=== PATIENT | female | born 1955 | race Caucasian/White ===

== ENCOUNTER 2023-10-21 09:42 | Emergency (ER) | payer BC, SELFPAY ==
[2023-10-21 09:45] VITALS: BP 126/79
[2023-10-21] MEDS: DILAUDID 0.5 MG IV (10:56)
[2023-10-21 11:04] VITALS: BP 125/66
[2023-10-21 11:07] LABS: % Basophils 0.9 % (0-2); % Eosinophils 1.5 % (0-6); % Immature Granulocytes 0.3 % (0-0.5); % Lymphocytes 30.8 % (20.5-51.1); % Monocytes 10.8 % (1.7-9.3); % Neutrophils 55.7 % (42.2-75.2); Absolute Basophils 0.1 10^3/uL (0-0.2); Absolute Eosinophils 0.1 10^3/uL (0-0.7); Absolute Monocytes 0.7 10^3/uL (0.1-0.6); Absolute Neutrophils 3.6 10^3/uL (1.4-6.5); Hematocrit 42.1 % (37.0-47.0); Hemoglobin 14.9 g/dL (12.0-16.0); Mean Corp Hgb Conc. 35.4 g/dL (33.0-37.0); Mean Corpuscular Hgb 29.6 pg (27.0-31.0); Mean Corpuscular Volume 83.5 fL (81.0-99.0); Mean Platelet Volume 9.6 fL (7.4-10.4); Nucleated Red Blood Cells % 0 %; Platelet Count 225 10^3/uL (130-400); Red Blood Cell Count 5.04 10^6/uL (4.20-5.40); Red Cell Dist. Width 12.7 % (11.5-14.5); White Blood Cell Count 6.5 10^3/uL (4.8-10.8)
[2023-10-21 11:14] LABS: Urine Albumin Trace (Neg - Trace); Urine Bilirubin 1+ (Negative); Urine Character Clear (Clear); Urine Color Yellow; Urine Glucose Negative (Negative); Urine Ketone 2+ (Negative); Urine Leukocyte Trace (Negative); Urine Nitrite Negative (Negative); Urine Occult Blood Negative (Negative); Urine Specific Gravity 1.015 (<1.030); Urine Urobilinogen 3+ (Neg - 1+); Urine pH 6.5 (5.0-9.0)
[2023-10-21 11:15] LABS: ALT (SGPT) 34 U/L (0-35); AST (SGOT) 32 U/L (14-36); Albumin 3.9 g/dl (3.5-5.0); Alkaline Phosphatase 119 U/L (38-126); Blood Urea Nitrogen 15 mg/dl (7-17); Calcium 9.2 mg/dl (8.4-10.2); Carbon Dioxide 24 mmol/L (22-30); Chloride 105 mmol/L (98-107); Glucose 89 mg/dl (70-99); Potassium 3.6 mmol/L (3.5-5.1); Sodium 136 mmol/L (135-145); Total Protein 6.7 g/dl (6.3-8.2); eGFR > 60.00
[2023-10-21 11:31] LABS: Urine Red Blood Cell 0-2 /HPF (0-2); Urine Squamous Cell 0-2 /LPF (Few)
[2023-10-21 11:32] LABS: Urine Bacteria Few (Negative)
[2023-10-21 12:15] VITALS: BP 137/77
[2023-10-21] MEDS: DILAUDID 1 MG IV (12:22)
[2023-10-21 13:00] VITALS: BP 121/71
[2023-10-21 14:00] VITALS: BP 123/77
--- NOTE | 2023-10-21 14:00 | ED.GENMED ---
History of Present Illness
General
Chief Complaint: Back Pain
Source: patient and other (friend)
Time Seen by Provider: 10/21/23 10:28
Travel History
Have you had any contact with someone who has COVID-19?: No
Do you have any symptoms of coronavirus? Fever > 100 degrees, chills, cough, shortness of breath, sore throat, loss of taste or smell, muscle aches, or headache?: No
History of Present Illness
History of Present Illness:
67-year-old female with long history of chronic pain including severe low back pain. She follows with pain management. She recently had her hydromorphone increased to 8 mg. Patient states her back pain has been worse over the last several weeks
and an MRI showed a sacral fracture. Patient states that over the last few days is felt confused. She initially was taken 8 mg but then stopped. She did take a dose of hydromorphone last night but is not sure what dose. Patient denies fevers or
abdominal pain. Her low back pain has been chronic.
Past History
Past History
ED Past Medical History: Asthma, HTN, Hypothyroidism, Psychiatric (Anxiety, Depression, PTSD, ) and Other (Spinal fracture,chronic back pain, kidney stones. PNA, C-dif, UTI, Renal calculus, Ovarian cyst)
ED Past Surgical History: Appendectomy, Orthopedic (Neck fusion, Right shoulder surgery, Sven knee replacements, ), Urological (renal stent, ) and Other (Ovarian cyst)
Patient has exhibited threatening behavior?: No
PSI?: No
Social History
Tobacco: Non-smoker
Alcohol: None
Drug: None
Personal:
Living: alone
Employment: Employed
Family History
Family History: Other (Noncontributory)
Phy Exam
Physical Exam
Physical Exam:
CONSTITUTIONAL Patient alert and oriented to person, place and time. Well-appearing. Vital signs reviewed.
HEAD atraumatic, normocephalic.
EYES eyelids normal to inspection, Extraocular muscles intact, Conjunctiva normal, Sclera normal.
NECK normal range of motion, Trachea midline, no jugular venous distention.
RESPIRATORY CHEST No respiratory distress noted, Chest expansion equal, Bilateral breath sounds clear.
CARDIOVASCULAR regular rate and rhythm, Heart sounds normal.
BACK normal inspection, no obvious deformities, is able to ambulate in the department
UPPER EXTREMITY range of motion normal, Motor strength normal, no cyanosis, no edema.
LOWER EXTREMITY range of motion normal, Motor strength normal, no cyanosis, no edema.
NEURO Speech normal, No focal motor deficits, Gilbert coma scale 15, Memory normal, Cranial Nerves intact to screening exam.
SKIN skin warm, dry, and normal in color.
PSYCHIATRIC patient oriented to person place and time, Normal affect.
Course
Orders/Labs/Results
Orders:
Orders
10/21/23 10:47
CT Lumbar Spine W/o Iv Contras Urgent
Comment:
Reason For Exam: fall
10/21/23 10:48
CT Head W/o Iv Contrast Urgent
Comment:
Reason For Exam: fall, frequent falls
HYDROmorphone [Dilaudid] 0.5 mg IV NOW STA
10/21/23 10:50
HYDROmorphone [Dilaudid] 0.5 mg .ROUTE .STK-MED ONE
10/21/23 10:54
Complete Blood Count/With Diff Urgent
Comprehensive Metabolic Panel Urgent
Urinalysis Reflex To Culture Urgent
Date Specimen was Collected: 10/21/23
Time Specimen was Collected: 10:53
Urine Microscopic Reflex Cult Urgent
10/21/23 11:14
Electrocardiogram (*1) Stat
Reason for Study: Other
Other Reason for Exam: chest pain
EKG- Treatment ONCE
10/21/23 12:16
HYDROmorphone [Dilaudid] 1 mg IV NOW STA
10/21/23 12:17
HYDROmorphone [Dilaudid] 1 mg .ROUTE .STK-MED ONE
Abnormal Lab Results
10/21/23
10:54
Absolute Monos (auto) 0.7 H 10^3/uL
(0.1-0.6)
Monocytes % 10.8 H %
(1.7-9.3)
Urine Ketones 2+ A
(Negative)
Urine Bilirubin 1+ A
(Negative)
Urine Urobilinogen 3+ A
(Neg - 1+)
Leukocyte Esterase Rfl Trace A
(Negative)
Urine Bacteria (Reflex) Few A
(Negative)
10/21/23 10:54
10/21/23 10:54
Vital Signs
Initial and Last Documented VS:
Initial Vital Signs
Temp BP
97.8 F 126/79
10/21/23 09:45 10/21/23 09:45
Last Documented Vital Signs
Temp Pulse Resp BP Pulse Ox
98.6 F 77 24 123/77 99
10/21/23 11:02 10/21/23 14:00 10/21/23 14:00 10/21/23 14:00 10/21/23 11:15
MDM/Problems Addressed
MDM/Problems Addressed:
Chronic back pain, chronic narcotic use
*Radiology
Radiology exam reviewed: radiology read reviewed
*Pulse Oximetry
Patient hypoxic: no
*Critical Care Note
Total Time (30-74mins, 75-104mins- exclusive of procedures): Not Applicable
Data Reviewed
Source: patient and other (Friend)
Further Testing Considered But Not Given:
Considered MRI but no clinical concern for cauda equina syndrome or other spinal cord pathology.
Patient Management
Discussion with other providers: [employer] (Case discussed with Dr. Valadez)
Escalation/DeEscalation of care consider admission/obs:
Suspect her slight alteration of mentation was related to narcotic use as her dose was doubled and then she stopped it. Her ED workup was grossly unremarkable. Case was discussed with the paint preparer who knows her well. He
recommends add Toradol. He will follow as outpatient. Patient is stable and has a nonfocal exam. She is ambulatory on reassessment
ED Attending Note
-
Portions of this chart may have been created with voice recognition software.� Occasional wrong word or��sound alike� substitutions may have occurred due to the inherent limitations of voice recognition software.
Discharge Plan
Departure
Patient Disposition: Home (Routine Discharge)
Date of Disposition: 10/21/23
Time of Disposition: 15:18
Patient with high blood pressure during this ER visit?: No
Discharge Problem:
Low back pain
Instructions: Low Back Pain (DC)
Prescriptions:
New
ketorolac 10 mg tablet
10 mg PO Q8H PRN (Reason: Pain) Qty: 20 0RF
No Action
alendronate 70 MG tablet
70 mg PO TU
amlodipine 2.5 MG tablet
2.5 mg PO DAILY
cholecalciferol (vitamin D3) 1,000 UNITS tablet
2,000 units PO DAILY
hydromorphone 4 MG tablet
4 mg PO Q8H
levothyroxine [Levoxyl] 125 MCG tablet
112 mcg PO DAILY
omega 6-buq-mle-fish oil [Fish Oil] 1,000 MG capsule
2,000 mg PO DAILY
loratadine 10 MG tablet
10 mg PO DAILY
docusate sodium 100 MG capsule
250 mg PO HS
clonazepam [Klonopin] 0.5 mg Tablet
0.5 mg PO HS
escitalopram oxalate [Lexapro] 5 mg Tablet
5 mg PO DAILY
melatonin 10 mg Tablet
20 mg PO HS
lisinopril-hydrochlorothiazide 10-12.5 mg Tablet
1 tab PO DAILY
escitalopram oxalate [Lexapro] 5 mg Tablet
5 mg PO DAILY
coQ10 (ubiquinol) 200 mg Capsule
200 mg PO HS
ICaps AREDS2 250 mg-200 unit -12.5 mg-1 mg Capsule
PO DAILY
Prevagen
1 tab PO HS
diazepam [Valium] 2 mg tablet
2 mg PO TID PRN (Reason: muscle spasm) Qty: 10 0RF
oxycodone 5 mg tablet
5 mg PO TID PRN (Reason: Pain) Qty: 9 0RF
Referrals:
Dc Evans MD [Family Provider] -
Activity Restrictions/Additional Instructions:
Please stick to 4 mg of hydromorphone as advised by Dr. Valadez. Please see your doctor in the next 3 to 5 days for follow-up and reevaluation. Return ED for fevers, change in mentation, weakness of any kind, bladder or bowel incontinence or any
other concerns.
Interventions
Interventions:
*Risk Screen - Suicide Last Done: 10/21/23 10:52
*General Assessment Last Done: 10/21/23 11:32
*Neglect/Abuse Screening Last Done: 10/21/23 10:52
ED- Fall Risk Assessment Last Done: 10/21/23 11:05
*ED COVID-19 Vaccine History Last Done: 10/21/23 09:45
ED-Musculoskeletal Assessment Last Done: 10/21/23 10:47
[2023-10-21 15:00] VITALS: BP 131/72
== END 2023-10-21 15:40 | disposition home or self-care (01) ==
LOC: EMR 09:42
PROVIDERS: EMERGENCY PHYSICIAN Emergency Medicine; FAMILY PHYSICIAN Family Medicine
DX: M54.50 Low back pain, unspecified (principal); G89.29 Other chronic pain; Z79.891 Long term (current) use of opiate analgesic
CPT/HCPCS: 99285; 96374; 96376; 70450; 72131; 80053; 81003; 81015; 85025; 93005

== ENCOUNTER → 2024-03-10 08:31 | Outpatient (REF) | payer MEDICARE, SELFPAY | LOC: RAD 08:31 | PROVIDERS: ATTENDING PHYSICIAN Internal Medicine Gastroenterology; FAMILY PHYSICIAN Family Medicine | DX: R19.4 Change in bowel habit (principal) | CPT/HCPCS: 74018 ==

== ENCOUNTER → 2024-03-12 06:42 | Day surgery (SDC) | payer BC, SELFPAY | LOC: GI 06:42 | PROVIDERS: ATTENDING PHYSICIAN Internal Medicine Gastroenterology | DX: Z12.11 Encounter for screening for malignant neoplasm of colon (principal); Z86.010 Personal history of colon polyps; K64.8 Other hemorrhoids; K57.30 Diverticulosis of large intestine without perforation or abscess without bleeding; D12.3 Benign neoplasm of transverse colon; D12.4 Benign neoplasm of descending colon | CPT/HCPCS: 45385; 45380; 88305 ==

== ENCOUNTER → 2024-04-23 07:35 | Outpatient (REF) | payer BC, SELFPAY ==
[2024-04-23 10:13] LABS: Blood Urea Nitrogen 24 mg/dl (7-17); Calcium 9.8 mg/dl (8.4-10.2); Carbon Dioxide 26 mmol/L (22-30); Chloride 102 mmol/L (98-107); Glucose 92 mg/dl (70-99); Potassium 4.2 mmol/L (3.5-5.1); Sodium 140 mmol/L (135-145); eGFR > 60.00
[2024-04-23 11:45] LABS: Erythrocyte Sed Rate 8 mm/hour (0-20)
[2024-04-23 11:54] LABS: C-Reactive Protein < 5.00 mg/L (0.0-10.00)
[2024-04-23 11:59] LABS: Free T4 1.13 ng/dl (0.78-2.19)
[2024-04-23 12:13] LABS: TSH 4.52 uIU/ml (0.47-4.68)
[2024-04-23 14:45] LABS: Lyme Antibody Screen, EIA Negative (Negative)
[2024-04-25 01:19] LABS: ANA, IgG Reflex to HEp-2 None Detected (None Detected)
== END ==
LOC: RAD 07:35
PROVIDERS: ATTENDING PHYSICIAN Internal Medicine Gastroenterology; FAMILY PHYSICIAN Physician Assistant
DX: R50.9 Fever, unspecified (principal); M25.512 Pain in left shoulder; G89.29 Other chronic pain; M25.511 Pain in right shoulder; E03.9 Hypothyroidism, unspecified; R79.89 Other specified abnormal findings of blood chemistry
CPT/HCPCS: 36415; 71046; 73030; 80048; 84439; 84443; 85652; 86038; 86140; 86618

== ENCOUNTER 2024-07-24 17:48 | Inpatient (IN) | payer BC, MEDICARE, SELFPAY ==
[2024-07-24] VITALS (8 sets, daily range): BP systolic 127–161; BP diastolic 71–92; BMI 27.2
--- NOTE | 2024-07-24 11:11 | ED.GENMED ---
ED Provider Triage
<Krys Llanos PA-C - Last Filed: 07/26/24 07:05>
-
Patient seen by provider in Triage?: Seen in Triage
68 y/o F with history of hypothyroidism, hypertension, chronic pain on opiates presents with her friend who was meeting her at the house for lunch and when she got there the patient was disoriented, hallucinating, had stool diarrhea all over the
bathroom. She is not usually disoriented like this. The patient's friend talked to her about 3 days ago and she sounded normal on the phone. Patient feels her confused herself. She denies any drugs or alcohol. She does not think she has been
eating but cannot recall. She feels weak. She denies any headache or head injury.
She is oriented to person and place and time but cannot answer some simple questions, she paused several times before answering, she is hallucinating, touching things on the floor and picking at her arm
A medical screening examination has been initiated by a qualified medical provider. Based on the assessment performed at this time, it has been determined that an emergent medical condition may exist and the patient has been informed that further
medical evaluation and possible additional diagnostic testing may be needed.
HPI: This is a medical evaluation conducted in person to initiate diagnostic evaluation and provide initial therapeutics. Please see further documentation by the treating clinician.
GENERAL: Alert , in no apparent distress
Head: No signs of trauma
ENT: No visible abnormalities
LUNGS: No acute respiratory distress
NEUROLOGICAL: Alert and oriented, confused, hallucinating, moves all extremities, no cranial nerve defects, no strength defects
SKIN: Skin intact. No visible changes.
MUSCULOSKELETAL: Moving extremities normally
PSYCH: Normal and appropriate interaction. Anxious
This is a patient with an unknown time of onset of a change in mental status. It sounds like she has been having some diarrhea, she could have some electrolyte disturbance. There is no signs of trauma. We do not have a last known well time. She
will be not a TNKase candidate and thus a stroke alert was not called. Her neuroexam is nonfocal
Will order screening labs and head CT
History of Present Illness
<Krys Llanos PA-C - Last Filed: 07/26/24 07:05>
General
Chief Complaint: Change in Mental Status
Time Seen by Provider: 07/24/24 11:45
<LAURENCE Epstein - Last Filed: 07/24/24 16:36>
General
Source: patient
Exam Limitations: altered mental status
Nursing documentation reviewed up to this point in time: agreed with
History of Present Illness
History of Present Illness:
Patient is a 68-year-old female brought by friend for confusion. Friend went to visit patient and reports patient was found to be confused. There was stool on the rug.
Patient presents awake alert she is able to tell me her name and is aware that she is in the hospital but not able to tell me why she is here. She denies any chest pain. Second friend also here with patient reports patient is on chronic opiates
and is followed pain management and typically takes them on a routine schedule.
Patient complains of chronic right shoulder pain. She does mention bruising to her arms vague abdominal pain. She is a poor historian. She does mention that she has had diarrhea recently.
Patient denies any chest pain she denies any neck pain recent cough URI symptoms. She denies any fevers at home.
Past History
<Krys Llanos PA-C - Last Filed: 07/26/24 07:05>
Past History
ED Past Medical History: Asthma, HTN, Hypothyroidism, Psychiatric (Anxiety, Depression, PTSD, ) and Other (Spinal fracture,chronic back pain, kidney stones. PNA, C-dif, UTI, Renal calculus, Ovarian cyst)
ED Past Surgical History: Appendectomy, Orthopedic (Neck fusion, Right shoulder surgery, Sven knee replacements, ), Urological (renal stent, ) and Other (Ovarian cyst)
Patient has exhibited threatening behavior?: No
PSI?: No
Social History
Tobacco: Non-smoker
Alcohol: None
Drug: None
Personal:
Living: alone
Employment: Employed
Family History
Family History: Other (Noncontributory)
Review of Systems
<LAURENCE Epstein - Last Filed: 07/24/24 16:36>
Review of Systems
Allergies reviewed?: Yes
Other source history: family
All Other Systems: ROS reviewed and negative except as documented in HPI and ROS
EENT: Reports no symptoms
Respiratory: Reports no symptoms
Cardiac: Reports no symptoms
ABD/GI: Reports no symptoms
Musculoskeletal: Denies neck pain or back pain
Skin: Reports no symptoms
Phy Exam
<LAURENCE Epstein - Last Filed: 07/24/24 16:36>
General Physical Exam
General Presentation: no apparent distress
General age: appears stated age
General Skin: warm and dry
General Habitus: elderly
General Mental: other (Mildly confused but able to answer questions)
General Hydration: dry mucous membranes
ENT Exam
ENT Exam: EOMI and neck supple
Cardiovascular Exam
Cardiovascular Exam: regular rate/rhythm, no murmur and normal peripheral pulses
Pulmonary Exam
Pulmonary Exam: lungs clear and no respiratory distress
Neurological Exam
Neurological Exam: alert, no motor deficits, no sensory deficits and other (No focal deficits)
Musculoskeletal Exam
Musculoskeletal Exam: full ROM and other (Scattered ecchymosis to arms full range of motion no bony tenderness)
Skin Exam
Skin Exam: normal color and warm/dry
Psychiatric Exam
Psychiatric Exam: normal mood/affect
Course
<Krys Llanos PA-C - Last Filed: 07/26/24 07:05>
Orders/Labs/Results
Orders:
Orders
07/24/24 11:15
Bedside Glucose- Treatment ONCE
07/24/24 11:16
Electrocardiogram (*1) Stat
Reason for Study: Other
Other Reason for Exam: neuro symptoms
CT Head W/o Iv Contrast Urgent
Comment:
Reason For Exam: ams
EKG- Treatment ONCE
07/24/24 11:25
Acetaminophen Urgent
Alcohol Urgent
Complete Blood Count/With Diff Urgent
Comprehensive Metabolic Panel Urgent
Creatine Phosphokinase Urgent
Comment: ADD ON
Lipase Urgent
Comment: ADD ON
PTT Urgent
Prothrombin Time Urgent
Salicylate Urgent
TSH Reflex To Free T4 Urgent
Troponin I Urgent
07/24/24 12:03
0.9% Sodium Chloride 1000 ml [Nss] 1,000 ml IV BOLUS
0.9% Sodium Chloride 1000 ml [Nss] 1,000 ml IV BOLUS
07/24/24 12:04
Rectal Temp- Treatment ONCE
Straight cath- Treatment ONCE
07/24/24 12:43
Fentanyl, Urine Urgent
Lactic Acid Q4H
Comment: CANCEL 2nd LACTIC ACID IF 1st LACTIC ACID IS LESS THAN 2
Urinalysis Reflex To Culture Urgent
Date Specimen was Collected: 07/24/24
Time Specimen was Collected: 12:11
Urine Drug Abuse Screen Urgent
Date Specimen was Collected: 07/24/24
Time Specimen was Collected: 12:11
Urine Microscopic Reflex Cult Urgent
Blood Culture Q30M
TIFFANY Source: Blood/Venous
Specimen Description:
Urine Culture Urgent
TIFFANY Source: U
Specimen Description:
Date Specimen was Collected: 07/24/24
Time Specimen was Collected: 12:11
07/24/24 12:46
COVID-19 Antigen Urgent
Source: Nasal Swab
Blood Culture Q30M
TIFFANY Source: Blood/Venous
Specimen Description:
Influenza A+B Rapid Molecular Urgent
TIFFANY Source: Nasal Swab
Specimen Description:
07/24/24 13:57
CT Abd/pelvis W Iv Cont Urgent
Comment:
Reason For Exam: change in ms elevated wbc low gr temp
Chest [CR Chest - 2 Views ] Urgent
Comment:
Reason For Exam: low gr temp confusion
07/24/24 13:58
Add On- LAB Urgent
Tests Added?: Aspirin, alcohol, acetaminophen
Add On- LAB Urgent
Tests Added?: uds
07/24/24 14:43
Add On- LAB Urgent
Tests Added?: ck, tsh with reflex to t4
07/24/24 14:51
LevoFLOXacin 500 MG/100 ML [Levaquin] 500 mg in 100 ml IV NOW
07/24/24 Dinner
Clear Liquid
At Your Request: Full Participation
07/24/24 15:09
0.9% Sodium Chloride 1000 ml [Nss] 1,000 ml IV BOLUS
0.9% Sodium Chloride 250 ml [Nss] 250 ml IV BOLUS
07/24/24 15:24
Vancomycin [Vancocin] 2,000 mg 0.9% Sodium Chloride 500 ml [Nss] 500 ml IV NOW
07/24/24 16:24
Add On- LAB Routine
Tests Added?: lipase
07/24/24 16:50
Admit/Transfer Patient As Directed
Co-Sign Provider:
Level of Care: Inpatient admission
Assign to:: Telemetry
Physician / Group: Reyes
Diagnosis: Change in MS
Reason for Telemetry: Other
Other Reason for Telemetry: Change in MS
Date to Stop Telemetry: 07/26/24
Time to Stop Telemetry: 11:00
Reason for Hospitalization: see progress note
Expected length of stay greater than two midnights?: Yes
ELOS- Estimated Length of Stay in days: 3
I certify the patient meets the requirements for IP care: Yes
PRN Pain Medication Management As Directed
May give lesser potent ordered pain med per pt: Yes
preference::
Protocol:: Medication orders for pain may be administered in a
manner that supports deferring to patient preference
when the pt is:
- Requesting an ordered lesser potent pain medication.
Least to most potent pain medications are defined
as: acetaminophen < NSAID < tramadol < opioids
(morphine, oxycodone, hydromorphone).
- Requesting a lesser dose of the same medication IF
ORDERED.
- Requesting a less intrusive route of administration
if both routes are prescribed by the provider (PO <
IV).
07/24/24 16:59
Code Status As Directed
Resuscitation Status: Full Code
07/24/24 17:07
Lactic Acid Q4H
Comment: CANCEL 2nd LACTIC ACID IF 1st LACTIC ACID IS LESS THAN 2
07/24/24 18:00
Lactic Acid Urgent
07/24/24 18:27
Oxycodone [Roxicodone] 10 mg PO Q6HPRN PRN
07/24/24 19:43
0.9% Sodium Chloride 1000 ml [Nss] 1,000 ml IV 80 mls/hr
Acetaminophen [Tylenol] 650 mg PO Q4HPRN PRN
Dicyclomine [Bentyl] 10 mg PO QIDPRN PRN
Enoxaparin Sodium [Lovenox] 40 mg SC QPM
07/24/24 19:43
CARDIOLOGY CONSULT Routine
Consulting Provider: Mark Lees
Was physician already notified: Yes
Reason for consult: Abnormal Troponins
Activity As Directed
Activity Level: As Tolerated
I&O [Intake/ Output] As Directed
Frequency: q12h
Ot Eval And Treat Routine
Pt Eval And Treat Routine
Activity Level: As Tolerated
DX Deep Vein Thrombosis Video Routine
07/24/24 20:00
Baclofen [Lioresal] 10 mg PO BID
MetroNIDAZOLE 500 MG/100 ML [Flagyl 500 mg] 100 ml IV Q8H
07/24/24 20:19
Troponin I Q8H
Venous Blood Gas Routine
%Oxygen/Room Air: ROOM AIR
07/24/24 22:00
HydrOXYZINE [Atarax] 50 mg PO HS
07/25/24 03:45
Troponin I Q8H
07/25/24 06:00
Levothyroxine [Synthroid] 100 mcg PO DAILY @ 0600
07/25/24 08:00
Desvenlafaxine Succinate [Pristiq] 50 mg PO DAILY
Escitalopram Oxalate [Lexapro] 20 mg PO DAILY
HydrOXYZINE [Atarax] 25 mg PO DAILY
Hydrochlorothiazide [Oretic] 12.5 mg PO DAILY
Loratadine [Claritin] 10 mg PO DAILY
Pantoprazole [Protonix] 40 mg PO DAILY
07/25/24 08:22
CBC/No Diff [Complete Blood Count/No Diff] IN AM
CMP [Comprehensive Metabolic Panel] IN AM
CPK [Creatine Phosphokinase] IN AM
07/25/24 12:27
Troponin I Q8H
07/25/24 18:00
LevoFLOXacin 500 MG/100 ML [Levaquin] 500 mg in 100 ml IV Q24H
07/26/24 11:00
DC Protocol for Telemetry ONCE
Abnormal Lab Results
07/24/24 07/24/24 07/24/24
11:17 11:25 12:43
WBC 15.1 H 10^3/uL
(4.8-10.8)
RBC 5.53 H 10^6/uL
(4.20-5.40)
MCV 80.8 L fL
(81.0-99.0)
Abs Immat Gran (auto) 0.1 H 10^3/uL
(0-0.05)
Absolute Neuts (auto) 10.3 H 10^3/uL
(1.4-6.5)
Absolute Monos (auto) 1.8 H 10^3/uL
(0.1-0.6)
Lymphocytes % 19.8 L %
(20.5-51.1)
Monocytes % 11.7 H %
(1.7-9.3)
Chloride 96 L mmol/L
(98-107)
BUN 29 H mg/dl
(7-17)
Glucose 112 H mg/dl
(70-99)
Lactic Acid 2.4 H mmol/L
(0.7-2.0)
Total Bilirubin 1.4 H mg/dl
(0.2-1.3)
AST 67 H U/L
(14-36)
Creatine Kinase 882 H U/L
(30-135)
Troponin I 0.112 H* ng/ml
Urine Ketones 1+ A
(Negative)
Ur Occult Blood Reflex 2+ A
(Negative)
Urine Bilirubin 1+ A
(Negative)
Leukocyte Esterase Rfl Trace A
(Negative)
Urine RBC 7-10 A /HPF
(0-2)
Urine Bacteria (Reflex) Moderate A
(Negative)
Urine Glucose Trace A
(Negative)
Urine Albumin (Reflex) 1+ A
(Neg - Trace)
Salicylates < 1.0 L mg/dl
(2.0-20.0)
Ur Buprenorphine Positive H
(Negative)
Acetaminophen < 10 L ug/ml
(10-30)
U Benzodiazepines Scrn Positive H
(Negative)
POC Glucose 105 H mg/dl
(70-99)
11/26/24 11:25
07/24/24 11:25
Vital Signs
Initial and Last Documented VS:
Initial Vital Signs
Temp Pulse Resp Pulse Ox
36.7 C 103 16 97
07/24/24 11:12 07/24/24 11:12 07/24/24 11:12 07/24/24 11:12
Last Documented Vital Signs
Temp Pulse Resp BP Pulse Ox
37.3 C 78 18 136/80 96
07/26/24 03:24 07/26/24 03:24 07/26/24 03:24 07/26/24 03:24 07/26/24 03:24
<LAURENCE Epstein - Last Filed: 07/24/24 16:36>
Orders/Labs/Results
Orders:
Orders
07/24/24 11:15
Bedside Glucose- Treatment ONCE
07/24/24 11:16
Electrocardiogram (*1) Stat
Reason for Study: Other
Other Reason for Exam: neuro symptoms
CT Head W/o Iv Contrast Urgent
Comment:
Reason For Exam: ams
EKG- Treatment ONCE
07/24/24 11:25
Acetaminophen Urgent
Alcohol Urgent
Complete Blood Count/With Diff Urgent
Comprehensive Metabolic Panel Urgent
Creatine Phosphokinase Urgent
Comment: ADD ON
Lipase Urgent
Comment: ADD ON
PTT Urgent
Prothrombin Time Urgent
Salicylate Urgent
TSH Reflex To Free T4 Urgent
Troponin I Urgent
07/24/24 12:03
0.9% Sodium Chloride 1000 ml [Nss] 1,000 ml IV BOLUS
0.9% Sodium Chloride 1000 ml [Nss] 1,000 ml IV BOLUS
07/24/24 12:04
Rectal Temp- Treatment ONCE
Straight cath- Treatment ONCE
07/24/24 12:43
Fentanyl, Urine Urgent
Lactic Acid Q4H
Comment: CANCEL 2nd LACTIC ACID IF 1st LACTIC ACID IS LESS THAN 2
Urinalysis Reflex To Culture Urgent
Date Specimen was Collected: 07/24/24
Time Specimen was Collected: 12:11
Urine Drug Abuse Screen Urgent
Date Specimen was Collected: 07/24/24
Time Specimen was Collected: 12:11
Urine Microscopic Reflex Cult Urgent
Blood Culture Q30M
TIFFANY Source: Blood/Venous
Specimen Description:
Urine Culture Urgent
TIFFANY Source: U
Specimen Description:
Date Specimen was Collected: 07/24/24
Time Specimen was Collected: 12:11
07/24/24 12:46
COVID-19 Antigen Urgent
Source: Nasal Swab
Blood Culture Q30M
TIFFANY Source: Blood/Venous
Specimen Description:
Influenza A+B Rapid Molecular Urgent
TIFFANY Source: Nasal Swab
Specimen Description:
07/24/24 13:57
CT Abd/pelvis W Iv Cont Urgent
Comment:
Reason For Exam: change in ms elevated wbc low gr temp
Chest [CR Chest - 2 Views ] Urgent
Comment:
Reason For Exam: low gr temp confusion
07/24/24 13:58
Add On- LAB Urgent
Tests Added?: Aspirin, alcohol, acetaminophen
Add On- LAB Urgent
Tests Added?: uds
07/24/24 14:43
Add On- LAB Urgent
Tests Added?: ck, tsh with reflex to t4
07/24/24 14:51
LevoFLOXacin 500 MG/100 ML [Levaquin] 500 mg in 100 ml IV NOW
07/24/24 Dinner
Clear Liquid
At Your Request: Full Participation
07/24/24 15:09
0.9% Sodium Chloride 1000 ml [Nss] 1,000 ml IV BOLUS
0.9% Sodium Chloride 250 ml [Nss] 250 ml IV BOLUS
07/24/24 15:24
Vancomycin [Vancocin] 2,000 mg 0.9% Sodium Chloride 500 ml [Nss] 500 ml IV NOW
07/24/24 16:24
Add On- LAB Routine
Tests Added?: lipase
07/24/24 16:50
Admit/Transfer Patient As Directed
Co-Sign Provider:
Level of Care: Inpatient admission
Assign to:: Telemetry
Physician / Group: Reyes
Diagnosis: Change in MS
Reason for Telemetry: Other
Other Reason for Telemetry: Change in MS
Date to Stop Telemetry: 07/26/24
Time to Stop Telemetry: 11:00
Reason for Hospitalization: see progress note
Expected length of stay greater than two midnights?: Yes
ELOS- Estimated Length of Stay in days: 3
I certify the patient meets the requirements for IP care: Yes
PRN Pain Medication Management As Directed
May give lesser potent ordered pain med per pt: Yes
preference::
Protocol:: Medication orders for pain may be administered in a
manner that supports deferring to patient preference
when the pt is:
- Requesting an ordered lesser potent pain medication.
Least to most potent pain medications are defined
as: acetaminophen < NSAID < tramadol < opioids
(morphine, oxycodone, hydromorphone).
- Requesting a lesser dose of the same medication IF
ORDERED.
- Requesting a less intrusive route of administration
if both routes are prescribed by the provider (PO <
IV).
07/24/24 16:59
Code Status As Directed
Resuscitation Status: Full Code
07/24/24 17:07
Lactic Acid Q4H
Comment: CANCEL 2nd LACTIC ACID IF 1st LACTIC ACID IS LESS THAN 2
07/24/24 18:00
Lactic Acid Urgent
07/24/24 18:27
Oxycodone [Roxicodone] 10 mg PO Q6HPRN PRN
07/24/24 19:43
0.9% Sodium Chloride 1000 ml [Nss] 1,000 ml IV 80 mls/hr
Acetaminophen [Tylenol] 650 mg PO Q4HPRN PRN
Dicyclomine [Bentyl] 10 mg PO QIDPRN PRN
Enoxaparin Sodium [Lovenox] 40 mg SC QPM
07/24/24 19:43
CARDIOLOGY CONSULT Routine
Consulting Provider: Mark Lees
Was physician already notified: Yes
Reason for consult: Abnormal Troponins
Activity As Directed
Activity Level: As Tolerated
I&O [Intake/ Output] As Directed
Frequency: q12h
Ot Eval And Treat Routine
Pt Eval And Treat Routine
Activity Level: As Tolerated
DX Deep Vein Thrombosis Video Routine
07/24/24 20:00
Baclofen [Lioresal] 10 mg PO BID
MetroNIDAZOLE 500 MG/100 ML [Flagyl 500 mg] 100 ml IV Q8H
07/24/24 20:19
Troponin I Q8H
Venous Blood Gas Routine
%Oxygen/Room Air: ROOM AIR
07/24/24 22:00
HydrOXYZINE [Atarax] 50 mg PO HS
07/25/24 03:45
Troponin I Q8H
07/25/24 06:00
Levothyroxine [Synthroid] 100 mcg PO DAILY @ 0600
07/25/24 08:00
Desvenlafaxine Succinate [Pristiq] 50 mg PO DAILY
Escitalopram Oxalate [Lexapro] 20 mg PO DAILY
HydrOXYZINE [Atarax] 25 mg PO DAILY
Hydrochlorothiazide [Oretic] 12.5 mg PO DAILY
Loratadine [Claritin] 10 mg PO DAILY
Pantoprazole [Protonix] 40 mg PO DAILY
07/25/24 08:22
CBC/No Diff [Complete Blood Count/No Diff] IN AM
CMP [Comprehensive Metabolic Panel] IN AM
CPK [Creatine Phosphokinase] IN AM
07/25/24 12:27
Troponin I Q8H
07/25/24 18:00
LevoFLOXacin 500 MG/100 ML [Levaquin] 500 mg in 100 ml IV Q24H
07/26/24 11:00
DC Protocol for Telemetry ONCE
Abnormal Lab Results
07/24/24 07/24/24 07/24/24
11 11:25 12:43
WBC 15.1 H 10^3/uL
(4.8-10.8)
RBC 5.53 H 10^6/uL
(4.20-5.40)
MCV 80.8 L fL
(81.0-99.0)
Abs Immat Gran (auto) 0.1 H 10^3/uL
(0-0.05)
Absolute Neuts (auto) 10.3 H 10^3/uL
(1.4-6.5)
Absolute Monos (auto) 1.8 H 10^3/uL
(0.1-0.6)
Lymphocytes % 19.8 L %
(20.5-51.1)
Monocytes % 11.7 H %
(1.7-9.3)
Chloride 96 L mmol/L
(98-107)
BUN 29 H mg/dl
(7-17)
Glucose 112 H mg/dl
(70-99)
Lactic Acid 2.4 H mmol/L
(0.7-2.0)
Total Bilirubin 1.4 H mg/dl
(0.2-1.3)
AST 67 H U/L
(14-36)
Creatine Kinase 882 H U/L
(30-135)
Troponin I 0.112 H* ng/ml
Urine Ketones 1+ A
(Negative)
Ur Occult Blood Reflex 2+ A
(Negative)
Urine Bilirubin 1+ A
(Negative)
Leukocyte Esterase Rfl Trace A
(Negative)
Urine RBC 7-10 A /HPF
(0-2)
Urine Bacteria (Reflex) Moderate A
(Negative)
Urine Glucose Trace A
(Negative)
Urine Albumin (Reflex) 1+ A
(Neg - Trace)
Salicylates < 1.0 L mg/dl
(2.0-20.0)
Ur Buprenorphine Positive H
(Negative)
Acetaminophen < 10 L ug/ml
(10-30)
U Benzodiazepines Scrn Positive H
(Negative)
POC Glucose 105 H mg/dl
(70-99)
07/24/24 11:25
07/24/24 11:25
Vital Signs
Initial and Last Documented VS:
Initial Vital Signs
Temp Pulse Resp Pulse Ox
36.7 C 103 16 97
07/24/24 11:12 07/24/24 11:12 07/24/24 11:12 07/24/24 11:12
Last Documented Vital Signs
Temp Pulse Resp BP Pulse Ox
37.3 C 78 18 136/80 96
07/26/24 03:24 07/26/24 03:24 07/26/24 03:24 07/26/24 03:24 07/26/24 03:24
Jewel Staker consulted with Physician
Jewel Staker consulted with physician?: Yes
Name of Physician Consulted: Pete
<Micheal Maki MD - Last Filed: 07/24/24 14:43>
Orders/Labs/Results
Orders:
Orders
07/24/24 11:15
Bedside Glucose- Treatment ONCE
07/24/24 11:16
Electrocardiogram (*1) Stat
Reason for Study: Other
Other Reason for Exam: neuro symptoms
CT Head W/o Iv Contrast Urgent
Comment:
Reason For Exam: ams
EKG- Treatment ONCE
07/24/24 11:25
Acetaminophen Urgent
Alcohol Urgent
Complete Blood Count/With Diff Urgent
Comprehensive Metabolic Panel Urgent
Creatine Phosphokinase Urgent
Comment: ADD ON
Lipase Urgent
Comment: ADD ON
PTT Urgent
Prothrombin Time Urgent
Salicylate Urgent
TSH Reflex To Free T4 Urgent
Troponin I Urgent
07/24/24 12:03
0.9% Sodium Chloride 1000 ml [Nss] 1,000 ml IV BOLUS
0.9% Sodium Chloride 1000 ml [Nss] 1,000 ml IV BOLUS
07/24/24 12:04
Rectal Temp- Treatment ONCE
Straight cath- Treatment ONCE
07/24/24 12:43
Fentanyl, Urine Urgent
Lactic Acid Q4H
Comment: CANCEL 2nd LACTIC ACID IF 1st LACTIC ACID IS LESS THAN 2
Urinalysis Reflex To Culture Urgent
Date Specimen was Collected: 07/24/24
Time Specimen was Collected: 12:11
Urine Drug Abuse Screen Urgent
Date Specimen was Collected: 07/24/24
Time Specimen was Collected: 12:11
Urine Microscopic Reflex Cult Urgent
Blood Culture Q30M
TIFFANY Source: Blood/Venous
Specimen Description:
Urine Culture Urgent
TIFFANY Source: U
Specimen Description:
Date Specimen was Collected: 07/24/24
Time Specimen was Collected: 12:11
07/24/24 12:46
COVID-19 Antigen Urgent
Source: Nasal Swab
Blood Culture Q30M
TIFFANY Source: Blood/Venous
Specimen Description:
Influenza A+B Rapid Molecular Urgent
TIFFANY Source: Nasal Swab
Specimen Description:
07/24/24 13:57
CT Abd/pelvis W Iv Cont Urgent
Comment:
Reason For Exam: change in ms elevated wbc low gr temp
Chest [CR Chest - 2 Views ] Urgent
Comment:
Reason For Exam: low gr temp confusion
07/24/24 13:58
Add On- LAB Urgent
Tests Added?: Aspirin, alcohol, acetaminophen
Add On- LAB Urgent
Tests Added?: uds
07/24/24 14:43
Add On- LAB Urgent
Tests Added?: ck, tsh with reflex to t4
07/24/24 14:51
LevoFLOXacin 500 MG/100 ML [Levaquin] 500 mg in 100 ml IV NOW
07/24/24 Dinner
Clear Liquid
At Your Request: Full Participation
07/24/24 15:09
0.9% Sodium Chloride 1000 ml [Nss] 1,000 ml IV BOLUS
0.9% Sodium Chloride 250 ml [Nss] 250 ml IV BOLUS
07/24/24 15:24
Vancomycin [Vancocin] 2,000 mg 0.9% Sodium Chloride 500 ml [Nss] 500 ml IV NOW
07/24/24 16:24
Add On- LAB Routine
Tests Added?: lipase
07/24/24 16:50
Admit/Transfer Patient As Directed
Co-Sign Provider:
Level of Care: Inpatient admission
Assign to:: Telemetry
Physician / Group: Eric
Diagnosis: Change in MS
Reason for Telemetry: Other
Other Reason for Telemetry: Change in MS
Date to Stop Telemetry: 07/26/24
Time to Stop Telemetry: 11:00
Reason for Hospitalization: see progress note
Expected length of stay greater than two midnights?: Yes
ELOS- Estimated Length of Stay in days: 3
I certify the patient meets the requirements for IP care: Yes
PRN Pain Medication Management As Directed
May give lesser potent ordered pain med per pt: Yes
preference::
Protocol:: Medication orders for pain may be administered in a
manner that supports deferring to patient preference
when the pt is:
- Requesting an ordered lesser potent pain medication.
Least to most potent pain medications are defined
as: acetaminophen < NSAID < tramadol < opioids
(morphine, oxycodone, hydromorphone).
- Requesting a lesser dose of the same medication IF
ORDERED.
- Requesting a less intrusive route of administration
if both routes are prescribed by the provider (PO <
IV).
07/24/24 16:59
Code Status As Directed
Resuscitation Status: Full Code
07/24/24 17:07
Lactic Acid Q4H
Comment: CANCEL 2nd LACTIC ACID IF 1st LACTIC ACID IS LESS THAN 2
07/24/24 18:00
Lactic Acid Urgent
07/24/24 18:27
Oxycodone [Roxicodone] 10 mg PO Q6HPRN PRN
07/24/24 19:43
0.9% Sodium Chloride 1000 ml [Nss] 1,000 ml IV 80 mls/hr
Acetaminophen [Tylenol] 650 mg PO Q4HPRN PRN
Dicyclomine [Bentyl] 10 mg PO QIDPRN PRN
Enoxaparin Sodium [Lovenox] 40 mg SC QPM
07/24/24 19:43
CARDIOLOGY CONSULT Routine
Consulting Provider: Mark Lees
Was physician already notified: Yes
Reason for consult: Abnormal Troponins
Activity As Directed
Activity Level: As Tolerated
I&O [Intake/ Output] As Directed
Frequency: q12h
Ot Eval And Treat Routine
Pt Eval And Treat Routine
Activity Level: As Tolerated
DX Deep Vein Thrombosis Video Routine
07/24/24 20:00
Baclofen [Lioresal] 10 mg PO BID
MetroNIDAZOLE 500 MG/100 ML [Flagyl 500 mg] 100 ml IV Q8H
07/24/24 20:19
Troponin I Q8H
Venous Blood Gas Routine
%Oxygen/Room Air: ROOM AIR
07/24/24 22:00
HydrOXYZINE [Atarax] 50 mg PO HS
07/25/24 03:45
Troponin I Q8H
07/25/24 06:00
Levothyroxine [Synthroid] 100 mcg PO DAILY @ 0600
07/25/24 08:00
Desvenlafaxine Succinate [Pristiq] 50 mg PO DAILY
Escitalopram Oxalate [Lexapro] 20 mg PO DAILY
HydrOXYZINE [Atarax] 25 mg PO DAILY
Hydrochlorothiazide [Oretic] 12.5 mg PO DAILY
Loratadine [Claritin] 10 mg PO DAILY
Pantoprazole [Protonix] 40 mg PO DAILY
07/25/24 08:22
CBC/No Diff [Complete Blood Count/No Diff] IN AM
CMP [Comprehensive Metabolic Panel] IN AM
CPK [Creatine Phosphokinase] IN AM
07/25/24 12:27
Troponin I Q8H
07/25/24 18:00
LevoFLOXacin 500 MG/100 ML [Levaquin] 500 mg in 100 ml IV Q24H
07/26/24 11:00
DC Protocol for Telemetry ONCE
Abnormal Lab Results
07/24/24 07/24/24 07/24/24
11:17 11:25 12:43
WBC 15.1 H 10^3/uL
(4.8-10.8)
RBC 5.53 H 10^6/uL
(4.20-5.40)
MCV 80.8 L fL
(81.0-99.0)
Abs Immat Gran (auto) 0.1 H 10^3/uL
(0-0.05)
Absolute Neuts (auto) 10.3 H 10^3/uL
(1.4-6.5)
Absolute Monos (auto) 1.8 H 10^3/uL
(0.1-0.6)
Lymphocytes % 19.8 L %
(20.5-51.1)
Monocytes % 11.7 H %
(1.7-9.3)
Chloride 96 L mmol/L
(98-107)
BUN 29 H mg/dl
(7-17)
Glucose 112 H mg/dl
(70-99)
Lactic Acid 2.4 H mmol/L
(0.7-2.0)
Total Bilirubin 1.4 H mg/dl
(0.2-1.3)
AST 67 H U/L
(14-36)
Creatine Kinase 882 H U/L
(30-135)
Troponin I 0.112 H* ng/ml
Urine Ketones 1+ A
(Negative)
Ur Occult Blood Reflex 2+ A
(Negative)
Urine Bilirubin 1+ A
(Negative)
Leukocyte Esterase Rfl Trace A
(Negative)
Urine RBC 7-10 A /HPF
(0-2)
Urine Bacteria (Reflex) Moderate A
(Negative)
Urine Glucose Trace A
(Negative)
Urine Albumin (Reflex) 1+ A
(Neg - Trace)
Salicylates < 1.0 L mg/dl
(2.0-20.0)
Ur Buprenorphine Positive H
(Negative)
Acetaminophen < 10 L ug/ml
(10-30)
U Benzodiazepines Scrn Positive H
(Negative)
POC Glucose 105 H mg/dl
(70-99)
07/24/24 11:25
07/24/24 11:25
Vital Signs
Initial and Last Documented VS:
Initial Vital Signs
Temp Pulse Resp Pulse Ox
36.7 C 103 16 97
07/24/24 11:12 07/24/24 11:12 07/24/24 11:12 07/24/24 11:12
Last Documented Vital Signs
Temp Pulse Resp BP Pulse Ox
37.3 C 78 18 136/80 96
07/26/24 03:24 07/26/24 03:24 07/26/24 03:24 07/26/24 03:24 07/26/24 03:24
<LAURENCE Epstein - Last Filed: 07/24/24 16:36>
MDM/Problems Addressed
MDM/Problems Addressed:
As documented patient is a 68-year-old female who lives alone was found by friend today confused .Patient arrives awake alert no focal deficits. She is able to tell me her name and follows commands she is mildly confused however able to answer some
questions. She denies any recent fevers however she was found to have a low-grade temperature here in the ER with an elevated white count of 15,000. She does mention she has had diarrhea. She points to her arms and is concerned about bruising to
her arms but denies any recent injury. She complains of vague abdominal pain. She is on chronic narcotics for right shoulder pain. Her electrolytes reviewed. She is mildly dry with a BUN of 29 and was given fluids. Her white count is 15.1 her
temp is as high as 100.1 here in the ER and lactic is 2.4 no obvious UTI chest x-ray negative. She denies any recent URI symptoms. She denies any neck pain back pain. No meningismus on exam.
Patient had no complaints of chest pain. Her troponin however is elevated 0.112. No acute ST elevation.
Sathish with cardiology not likely unstable angina.
CT head neg
As discussed with ED physician evaluated patient will check CAT scan(questionable abdominal pain history and patient does have a history of kidney stones) however patient will require admission will start broad-spectrum antibiotics, septic fluids
given
CAT scan abdomen resulted shows artifact across the region of the pancreas and recommends clinical correlation though no tenderness lipase ordered and will be pending for the any hospitalist I did relay this message to the hospitalist. There is no
acute inflammatory process within the abdomen
Chronic conditions affecting care:
Chronic pain on narcotics hypertension history of renal stones
<LAURENCE Epstein - Last Filed: 07/24/24 16:36>
*Critical Care Note
Total Time (30-74mins, 75-104mins- exclusive of procedures): Not Applicable
ED Attending Note
<Krys Llanos PA-C - Last Filed: 07/26/24 07:05>
-
Portions of this chart may have been created with voice recognition software.� Occasional wrong word or��sound alike� substitutions may have occurred due to the inherent limitations of voice recognition software.
<Micheal Maki MD - Last Filed: 07/24/24 14:43>
ED Attending Note
Patient seen and examined by attending physician: Yes
I performed the substantive portion of visit, reviewed & personally made and approve the management plan that is documented in note by myself or CHRISTIANA.: Yes
ED Attending Note:
I have seen and evaluated the patient with a [id number] encounter. I have spoken to the [PA] and involved in the medical history, the physical exam, medical decision making.
Evaluation and management service: agree unless noted differently below.
Results interpretation: agree unless noted differently below.
Patient is a 68-year-old woman with history of chronic pain, hypertension hypothyroidism presenting to the emergency room a change in her mental status. Patient's friend is at bedside provides most of the history. She was last seen normal 2 days
ago. Her baseline is ANO x 3. She is on opioids for her pain. Today her friend states that patient was incontinent of stool and was extremely confused. She is having with visual hallucinations and constantly pointing at her fingers and picking
at her skin. Patient denies any trauma. She does state that her abdomen hurts. She is fixated on her abrasions and dry skin patches but denies any falls. She denies taking any extra medications. Denies any alcohol or illicit drug use. Denies
any chest pain or difficulty breathing.
On exam patient is resting comfortably picking at her skin and that the blanket. She does have some bruising to her upper extremities. Her right elbow does appear bruised however there is no swelling she does have full range of motion. Her
abdomen is diffusely tender. She is ANO x 2 during my evaluation. Has no neurodeficits on exam.
Blood work obtained prior to ventilation does show elevated leukocytosis. She also has elevated troponin. EKG per my interpretation with ST depressions. PA did discuss with cardiology who recommending trending troponin. Patient is not having any
chest pain so we will hold off on heparin. CT scan of the head unremarkable. Will also check tox labs UDS chest x-ray and CT abdomen given the leukocytosis. Will give antibiotics as patient is having rigors and her temperature is now 100.1.
Anticipate admission.
Discharge Plan
Departure
Patient Disposition: Admit
Date of Disposition: 07/24/24
Time of Disposition: 16:12
Admit to: Med/Surg
Admit to doctor: hospitalist
Presentation/result/management discussed w/ accepting MD/DO: Hospitalist
Patient with high blood pressure during this ER visit?: No
Condition: Fair
Covid-19: Not Applicable
Discharge Problem:
Sepsis, Altered mental status
Interventions
Interventions:
*Risk Screen - Suicide Last Done: 07/24/24 12:54
*General Assessment Last Done: 07/24/24 11:12
*Neglect/Abuse Screening Last Done: 07/24/24 11:19
ED- Fall Risk Assessment Last Done: 07/24/24 11:56
*ED COVID-19 Vaccine History Last Done: 07/24/24 11:56
*Nursing Disposition Last Done: 07/24/24 19:42
ED-Psychological Assessment Last Done: 07/24/24 12:10
ED- Neurological Assessment Last Done: 07/24/24 15:29
ED- Cardiac Assessment Last Done: 07/24/24 11:56
ED Swallowing Screen Last Done: 07/24/24 19:37
Discharge Date and Time
Discharge Date/Time: 07/24/24 19:42
[2024-07-24 11:19] LABS: Glucose - Point of Care 105 mg/dl (70-99)
[2024-07-24 11:34] LABS: % Basophils 0.2 % (0-2); % Immature Granulocytes 0.4 % (0-0.5); % Lymphocytes 19.8 % (20.5-51.1); % Monocytes 11.7 % (1.7-9.3); % Neutrophils 67.9 % (42.2-75.2); Absolute Immature Granulocytes 0.1 10^3/uL (0-0.05); Absolute Monocytes 1.8 10^3/uL (0.1-0.6); Absolute Neutrophils 10.3 10^3/uL (1.4-6.5); Hematocrit 44.7 % (37.0-47.0); Hemoglobin 15.8 g/dL (12.0-16.0); Mean Corp Hgb Conc. 35.3 g/dL (33.0-37.0); Mean Corpuscular Hgb 28.6 pg (27.0-31.0); Mean Corpuscular Volume 80.8 fL (81.0-99.0); Mean Platelet Volume 9.7 fL (7.4-10.4); Nucleated Red Blood Cells % 0 %; Platelet Count 293 10^3/uL (130-400); Red Blood Cell Count 5.53 10^6/uL (4.20-5.40); Red Cell Dist. Width 12.2 % (11.5-14.5); White Blood Cell Count 15.1 10^3/uL (4.8-10.8)
[2024-07-24 11:44] LABS: INR 0.94; PT 12.8 Sec (11.4-14.6)
[2024-07-24 11:45] LABS: APTT 28.8 Sec (23.4-35.0)
[2024-07-24 11:51] LABS: ALT (SGPT) 28 U/L (0-35); AST (SGOT) 67 U/L (14-36); Albumin 4.9 g/dl (3.5-5.0); Alkaline Phosphatase 93 U/L (38-126); Blood Urea Nitrogen 29 mg/dl (7-17); Calcium 9.6 mg/dl (8.4-10.2); Carbon Dioxide 24 mmol/L (22-30); Chloride 96 mmol/L (98-107); Glucose 112 mg/dl (70-99); Potassium 3.5 mmol/L (3.5-5.1); Sodium 137 mmol/L (135-145); Total Bilirubin 1.4 mg/dl (0.2-1.3); Total Protein 7.6 g/dl (6.3-8.2); eGFR > 60.00
[2024-07-24 12:06] LABS: Troponin I 0.112 ng/ml
[2024-07-24 12:21] LABS: TSH Reflex To Free T4 1.14 uIU/ml (0.47-4.68)
[2024-07-24] MEDS: NSS 1000 IV ×2 (12:55→17:54)
[2024-07-24 13:13] LABS: Lactic Acid 2.4 mmol/L (0.7-2.0)
[2024-07-24 13:15] LABS: Urine Character Clear (Clear); Urine Color Yellow; Urine Specific Gravity 1.015 (<1.030)
[2024-07-24 13:16] LABS: Urine Albumin 1+ (Neg - Trace); Urine Bilirubin 1+ (Negative); Urine Glucose Trace (Negative); Urine Ketone 1+ (Negative); Urine Leukocyte Trace (Negative); Urine Nitrite Negative (Negative); Urine Occult Blood 2+ (Negative); Urine Urobilinogen Negative (Neg - 1+)
[2024-07-24 13:17] LABS: COVID-19 Antigen Negative (Negative)
[2024-07-24 13:49] LABS: Urine Urothelial Cell 0-2 /LPF (FEW)
[2024-07-24 13:50] LABS: Urine Bacteria Moderate (Negative)
[2024-07-24 14:35] LABS: Amphetamines Negative (Negative); Barbiturates Negative (Negative); Benzodiazepines Positive (Negative); Buprenorphine Positive (Negative); Cocaine Negative (Negative); Marijuana Negative (Negative); Methadone Negative (Negative); Methamphetamines Negative (Negative); Opiates Negative (Negative); Phencyclidine Negative (Negative); Tricyclic Antidepressants Negative (Negative)
[2024-07-24 14:39] LABS: Acetaminophen < 10 ug/ml (10-30); Alcohol None Detected; Salicylate < 1.0 mg/dl (2.0-20.0)
[2024-07-24 14:52] LABS: Fentanyl, Urine Negative (Negative)
[2024-07-24 15:30] LABS: Creatine Phosphokinase 882 U/L (30-135)
[2024-07-24] MEDS: VANCOCIN 540 MG IV (16:26)
[2024-07-24] MEDS: NSS 250 IV (16:28)
--- NOTE | 2024-07-24 17:05 | HPS.HSE ---
Family Physician
-
Family Physician: INTERVIEWE UNKNOWN - PT NOT
Chief Complaint
-
Change in MS
History of Present Illness
Patient was noted to be having change in her mental status today with a friend and was brought in.
History is from the patient as well as a friend at the bedside it is not the same friend who saw her at home today. She does know her quite well in fact she is saw her on last and spoke to her on Tuesday night on the phone and patient was
fine then.
Patient lives alone. She is on FMLA currently because of shoulder issues. She is waiting for right shoulder replacement.
Patient is chronic joint pains and back pains for which she is on chronic narcotic regimen which includes buprenorphine buccal film. Sees local pain specialist. Looks like in May she went on a higher dose of buccal film from 150 mcg to 300 mcg
twice a day. She also takes oxycodone 10 mg 4 times a day as needed. She denies taking any excess dose or mixed up with the doses. No prior history of an intentional overdose.
Patient realizes she is confused. She states it is hard to tell. She goes on tangents about Being sick but according to the friend at bedside that was many days ago.
She starts the conversation saying ' what happened is ??? ' and stops in tracks and says ' i dont know'
' There is something wrong with my blood' i think.
She was found by her friend completely naked and saying all kinds of things at home. Apparently she had's stools around in the kitchen. Patient says she peed and pooped on the floor because of abdominal pain. She complains of constipation.
She is currently oriented to place, month and the year but not the day of the week. That is much improvement in the last 1 hour according to the ROOM SERVICE ATTENDANT.
Patient denies any alcohol intake or recreational drug use. Denies taking any benzos. Urine drug screen was positive for benzos and buprenorphine.
She think she has fever. She complains of some pain and discomfort in the epigastric area. She feels nauseated. No prior history of pancreatitis or peptic ulcer disease.
She complains of pain and burning with a urine.
Denies sore throat, cough, shortness of breath or chest pain.
Medical History
Past Medical History
Past Medical History: Denies CAD, CHF, CVA or HTN (Says she takes hydrochlorothiazide for kidney stones)
Past Surgical History: Reports Other (bl knee replacement)
Social History
Tobacco: Non-smoker
Alcohol: None
Drug: None
Personal: Single
Living: Alone
Employment: Disabled
Family History
Family History: Not pertinent
Allergies / Home Medications
Allergies reflects when Allergies were last updated in [employer].
Home Medications with original date entered in [employer]
Allergy/Medication List:
Allergies
Allergy/AdvReac Type Severity Reaction Status Date / Time
NSAIDS (Non-Steroidal Allergy Has early Verified 07/24/24 11:11
Anti-Inflamma kidney
[Nsaids] insufficiency
Penicillins Allergy Swelling Verified 07/24/24 11:11
pollen extracts Allergy EYES Verified 07/24/24 11:11
WATER,
SNEEZING
Home Medications
loratadine 10 mg tablet 10 mg PO DAILY 01/15/19
baclofen 10 mg tablet 10 mg PO BID 07/24/24
buprenorphine HCl 300 mcg buccal film (Belbuca) 300 mcg buccal Q12H 07/24/24
desvenlafaxine succinate 50 mg tablet,extended release 24 hr 50 mg PO DAILY 07/24/24
dicyclomine 10 mg capsule 10 mg PO QIDPRN PRN spasms 07/24/24
escitalopram oxalate 20 mg tablet (Lexapro) 20 mg PO DAILY 07/24/24
hydrochlorothiazide 12.5 mg tablet 12.5 mg PO DAILY 07/24/24
hydroxyzine HCl 25 mg tablet 25 mg PO DAILY 07/24/24
hydroxyzine HCl 50 mg tablet 50 mg PO HS 07/24/24
levothyroxine 100 mcg tablet (Synthroid) 100 mcg PO DAILY 07/24/24
omeprazole 40 mg capsule,delayed release 40 mg PO DAILY 07/24/24
oxycodone 10 mg tablet 10 mg PO Q6HPRN PRN severe pains 07/24/24
Review of Systems
-
A 12 point ROS was completed and negative except as noted: Yes
Physical Exam
Vital Signs
Vital Signs
Temp Pulse Resp BP Pulse Ox
100.3 F 87 21 161/79 99
07/24/24 16:22 07/24/24 16:34 07/24/24 16:34 07/24/24 16:34 07/24/24 16:34
Physical Exam
General: Comfortable
Respiratory: Clear and Non Labored Respirations; No Wheezes, Crackles or Accessory Resp Muscle Use
Cardiac: S1/S2 and Freddy's Sign
GI: Soft, Non Distended, Normal Bowel Sounds and Tender (In epigastric area)
Neuro: AO x 3, No Motor Deficits and Other (NANDO); No Slurred Speech, Facial Droop or Tremors
Psych: Calm and Confused; No Agitated
Laboratory Results
-
07/24/24 11:25
07/24/24 11:25
Laboratory Results
PT 12.8 Sec (11.4-14.6) 07/24/24 11:25
INR 0.94 07/24/24 11:25
APTT 28.8 Sec (23.4-35.0) 07/24/24 11:25
Lactic Acid 2.4 mmol/L (0.7-2.0) H 07/24/24 12:43
Total Bilirubin 1.4 mg/dl (0.2-1.3) H 07/24/24 11:25
AST 67 U/L (14-36) H 07/24/24 11:25
ALT 28 U/L (0-35) 07/24/24 11:25
Alkaline Phosphatase 93 U/L (38-126) 07/24/24 11:25
Troponin I 0.112 ng/ml H* 07/24/24 11:25
Data Reviewed
-
CT Scan: Report Reviewed by me (ct a/p)
Lab Data: Labs Reviewed by me
Impression/Plan
-
Acute change in mental status-nonfocal on gross exam. Suspect more TME. Unclear at this point the clear precipitating factor. Differential includes narcotic pain regimen, infection including UTI, rule out pancreatitis.
Admit to tele.
CT head negative for acute findings.
Panculture. Chest x-ray shows no evidence of acute pathology.
CT of the abdomen pelvis shows artifact because of arms positioning but ther is diffuse pancreatic fatty filtration. Abnormal LFTs noted. Rule out pancreatic/biliary disease. Start on empirical antibiotics. Check a lipase. Follow LFTs closely.
Urinalysis raises concern for contamination but patient has symptoms of dysuria frequency. Check urine culture.
Decreased her dose of buccal buprenorphine - would need a switch to SL subutex in hospital. Check VBG for hypercapnia.
Abnormal troponins-patient without chest pain. EKG without any acute ST-T changes. Consult cardiology.
Prolonged QTc-repeat in a.m. Follow on telemetry.
Chronic pain syndrome on chronic home narcotics. Decrease the dose of buccal buprenorphine. Use as needed oxycodone as before. She is also on baclofen which I would continue.
Depression-continue with home medication
Full code
[2024-07-24 17:09] LABS: Lipase 50 U/L (23-300)
[2024-07-24 17:42] LABS: Lactic Acid 1.5 mmol/L (0.7-2.0)
[2024-07-24 18:20] LABS: Lactic Acid 1.2 mmol/L (0.7-2.0)
[2024-07-24] MEDS: LEVAQUIN 100 IV (18:50)
[2024-07-24] MEDS: ROXICODONE 10 MG PO (19:01)
[2024-07-24] MEDS: LIORESAL 10 MG PO (19:01)
[2024-07-24] MEDS: COMPAZINE 5 MG IV (19:03)
--- NOTE | 2024-07-24 20:00 | PTCARENOTE ---
Pt arrived to unit from ED and ambulated with x2 assist from stretcher to bed. Pt reports mild pain in right hand IV. Pt oriented to room, call meneses within reach. VSS, bed alarm in place.
[2024-07-24 20:27] LABS: Venous Blood Gas B.E. 0.7 mmol/L (-4 to +4); Venous Blood Gas HCO3 24.5 mmol/L (22-27); Venous Blood Gas O2 Sat % 96.1 %; Venous Blood Gas pCO2 36 mmHg (35-48); Venous Blood Gas pH 7.44 (7.32-7.43); Venous Blood Gas pO2 71 mmHg (30-50)
[2024-07-24] MEDS: FLAGYL 500 MG 100 IV (20:40)
[2024-07-24 20:54] LABS: Troponin I 0.077 ng/ml
[2024-07-24] MEDS: LOVENOX 40 MG SC (21:22)
--- NOTE | 2024-07-24 22:00 | PTCARENOTE ---
Pt reports nausea; nothing PRN ordered. CARITO Brar notified, order placed for 1x IV Benadryl 6.25mg, however pt is scheduled to take hydroxyzine 50mg HS now. CARITO Brar notified, will give PO hydroxyzine and hold off on IV Benadryl for
now. Will continue with current plan and monitor for worsening nausea.
[2024-07-24] MEDS: ATARAX 50 MG PO (22:29)
[2024-07-25] MEDS: ROXICODONE 10 MG PO ×3 (01:05→23:35)
--- NOTE | 2024-07-25 03:57 | DOWNTIME ---
There was a [employer] Client Commercial Loan Officer Downtime on 07/25/2024 from 0100 to 07/25/2024 at 0350. Downtime documentation of patient's care, including medication administrations, has been reconciled in the electronic record per guidelines. Refer to the
patient's paper chart under the miscellaneous tab to see printed paper medication records and downtime forms.
[2024-07-25 03:59] VITALS: BP 135/67
[2024-07-25] MEDS: TYLENOL 650 MG PO (04:02)
[2024-07-25] MEDS: FLAGYL 500 MG 100 IV ×2 (04:03→11:20)
[2024-07-25 04:33] LABS: Troponin I 0.063 ng/ml
[2024-07-25] MEDS: NSS 1000 IV ×2 (06:28→07:50)
[2024-07-25] MEDS: SYNTHROID 100 MCG PO (06:28)
[2024-07-25 07:00] VITALS: BP 135/82
[2024-07-25] MEDS: ATARAX 25 MG PO (07:44)
[2024-07-25] MEDS: PROTONIX 40 MG PO (07:44)
[2024-07-25] MEDS: PRISTIQ 50 MG PO (07:44)
[2024-07-25] MEDS: LIORESAL 10 MG PO ×2 (07:45→19:35)
[2024-07-25] MEDS: LEXAPRO 20 MG PO (07:45)
[2024-07-25] MEDS: ORETIC 12.5 MG PO (07:45)
[2024-07-25] MEDS: CLARITIN 10 MG PO (07:45)
[2024-07-25 09:02] LABS: Hematocrit 37.9 % (37.0-47.0); Hemoglobin 13.1 g/dL (12.0-16.0); Mean Corp Hgb Conc. 34.6 g/dL (33.0-37.0); Mean Corpuscular Hgb 29.3 pg (27.0-31.0); Mean Corpuscular Volume 84.8 fL (81.0-99.0); Mean Platelet Volume 9.7 fL (7.4-10.4); Platelet Count 206 10^3/uL (130-400); Red Blood Cell Count 4.47 10^6/uL (4.20-5.40); Red Cell Dist. Width 12.5 % (11.5-14.5); White Blood Cell Count 10.1 10^3/uL (4.8-10.8)
--- NOTE | 2024-07-25 10:24 | CM ---
CM reviewed chart, met with patient bedside, initial assessment completed. Patient resides independently in a one story home, two steps to enter with railings. Patient denies use of DME, reports [facility] in past after wrist surgery, [facility] in
past after bilateral knee surgery. Patient PCP Dr. Dc Evans, pharmacy [facility] [place], confirms prescription coverage. Patient requesting Advance Directive, provided paperwork to patient. CM will continue to follow for all discharge planning needs.
Plan; home no needs likely.
[2024-07-25 11:00] VITALS: BP 137/82
[2024-07-25 11:17] LABS: ALT (SGPT) 23 U/L (0-35); AST (SGOT) 41 U/L (14-36); Albumin 3.4 g/dl (3.5-5.0); Alkaline Phosphatase 67 U/L (38-126); Blood Urea Nitrogen 13 mg/dl (7-17); Calcium 7.7 mg/dl (8.4-10.2); Carbon Dioxide 25 mmol/L (22-30); Chloride 103 mmol/L (98-107); Creatine Phosphokinase 386 U/L (30-135); Estimated Creatinine Clearance 71 ml/min; Glucose 92 mg/dl (70-99); Potassium 2.8 mmol/L (3.5-5.1); Sodium 137 mmol/L (135-145); Total Bilirubin 1.1 mg/dl (0.2-1.3); Total Protein 5.7 g/dl (6.3-8.2); eGFR > 60.00
[2024-07-25 13:15] LABS: Troponin I 0.037 ng/ml
[2024-07-25] MEDS: BENTYL 10 MG PO (13:37)
--- NOTE | 2024-07-25 14:35 | W.PN.HOSP.TC ---
Today's Communication/Plan
-
DC abx and follow
Check procal
Follow cards input
Assessment / Plan
Assessment / Plan
Acute change in mental status-nonfocal on gross exam. Suspect more TME. Unclear at this point the clear precipitating factor. Differential includes narcotic pain regimen, infection .
Tele without events
CT head negative for acute findings. Non focal grossly.
Chest x-ray shows no evidence of acute pathology.
Urinalysis raises concern for contamination , patient today denying any urinary symptoms and urine culture is negative. Doubt UTI. No indication for antibiotics.
VBG for hypercapnia. Hold her buccal buprenorphine. Continue with oxycodone as needed for breakthrough pain. start on laxatives.
CT of the abdomen pelvis shows artifact because of arms positioning but there is diffuse pancreatic fatty filtration. Abnormal LFTs noted. Rule out pancreatic/biliary disease. Normal lipase. Follow LFTs closely -improving.
Leukocytosis with low grade fever - no obvious foci apart from mild LFT abnormalities. CT A/P neg . Check procal .Blood cx are neg so far. Hold abx and follow.
Abnormal troponins-patient without chest pain. EKG without any acute ST-T changes. Consult cardiology.
Prolonged QTc-repeat . Follow on telemetry.
Chronic pain syndrome on chronic home narcotics. Hold buccal buprenorphine. Use as needed oxycodone as before. She is also on baclofen which I would continue.
Depression-continue with home medication
Full code
Anticipated Discharge: > 48 hours
Subjective/Interval History
-
Date of Service: July 25, 2024
She feels 50% improved with regards to confusion.
She is alert and oriented to place, day, month in the ER.
She feels bit nauseous after eating. Trying to keep on liquids. No diarrhea. She has some epigastric lower chest wall discomfort. This feels like a pressure. Just got some dizziness. Denies any pleuritic chest pain. No palpitations.
No fever chills.
Denying any dysuria frequency of urine today.
No sore throat.
Objective Data
-
Labs:
Laboratory Results
07/25/24
08:22
WBC 10.1
Hgb 13.1
Hct 37.9
Plt Count 206 D
Sodium 137
Potassium 2.8 L
Chloride 103
Carbon Dioxide 25
BUN 13
Creatinine 0.7
Glucose 92
Calcium 7.7 L D
Total Bilirubin 1.1
AST 41 H
ALT 23
Alkaline Phosphatase 67
Vital Signs:
Vital Signs
Temp Pulse Resp BP Pulse Ox
98.8 F 82 20 137/82 97
07/25/24 11:00 07/25/24 11:00 07/25/24 11:00 07/25/24 11:00 07/25/24 11:00
I&O
07/24/24 07/25/24 07/26/24
06:59 06:59 06:59
Intake Total 1040 / 1040
Balance 1040 / 1040
Review of Systems
-
Constitutional: Denies Fever or Chills
EENT: Denies Sore Throat
Respiratory: Denies Cough or Trouble Breathing
Cardiac: Reports Chest Pain (pressure in lower central chest /epigastric area )
Abdomen/GI: Reports Nausea
Physical Exam
-
General: No Apparent Distress
HEENT: Moist Mucous Membranes
Respiratory: Clear to Auscultation
Cardiac: Regular Rhythm and S1/S2
GI: Soft, Nondistended, Normal Bowel Sounds and Tender (in epigastric area)
Neuro: AO x 3 and No Motor Deficits; Negative Tremors
Psych: Calm; Negative Agitated
Data Reviewed
-
Labs: Labs Reviewed by me
--- NOTE | 2024-07-25 14:52 | CON.CAR ---
Addendum entered and electronically signed by Mark Lees MD 07/25/24 16:58:
I saw and examined the patient.
The MAIL ORDER CLERK's note was reviewed and I agree with the note.
Consult for abnormal troponin. 68-year-old woman with chronic pain/chronic pain regimen/narcotic regimen. Patient was found by her friend to be confused is now admitted to hospitalist service. Consult for abnormal troponin. Patient states that
she is less confused than she was. But still not feeling at baseline. The above issues limit patient's history she does report some issues with swallowing with a sensation in her throat at times while she is swallowing also sometimes has some
chest pain or left costal margin discomfort after eating. No current complaints of chest pain or shortness of breath patient's initial troponin was 0.1 and is trended down since.Patient was noted to have a temperature up to 100.3 during this
hospitalization. Cultures are pending. Patient gives a story that she has had periodic temperatures that were evaluated by her PCP. She makes it sound like she had a low-grade temperature once a month. However she cannot exactly recall when this
was.
-Mild troponin elevation of 0.1 unclear etiology troponins have trended down since that time. Echocardiogram with normal left ventricular function. No current complaints of chest discomfort.
-Monitor on telemetry
-Monitored for development of any symptoms.
-Would continue current evaluation of confusion and low-grade temperatures. If patient has no clear ischemic symptoms then with plan for eventual nuclear perfusion stress test
Mental status. Changes unclear. May be related to medications and narcotic use but would consider other causes as well. Evaluation being directed by Dr. Reyes
-
Original Note:
Consultation
Consultation Request
Date/Time Consultation Requested: 07/25/24 1300
Date/Time Consultation Performed: 07/25/24 1450
Requesting Provider: Dr. Reyes
Performing Provider: Mallorie DANG for Dr. Lees
Reason for Consultation: abnormal troponin
Medical History
-
Chief Complaint: confusion
History of Present Illness:
68 y/o female with history of hypertension (per OP cardiology chart), dyslipidemia (not currently on medicines), chest pain, hypothyroidism, chronic pain on narcotics, GERD, and endomyocardial bridge is here for evaluation of confusion. Reports that
she doesn't recall everything, but a friend came over yesterday and patient answered the door naked and was noted to be confused. Patient reports chills, constipation. She can't remember if she has been eating or drinking. She hasn't started any new
medicines or taken any drugs (that are not prescribed and on her list). She has had more SOB over the past few months. She is not active, in part due to orthopedic issues. She has had chest pressure on and off, but is not an excellent historian and
can't tell me how long that has been for- it does seem fairly chronic. It is intermittent pressure across the chest. It is worse with inspiration, palpation, after eating. Not noted with exertion. Lasts a few seconds at a time. W/u for altered MS
per primary team. We are consulted for abnormal troponin. She is in no distress at the time of my assessment. She has had low grade temps.
Past Medical History
Past Medical History: GERD, HTN, Hypercholesterolemia, Hypothyroidism and Other (as above)
Social History
Tobacco: Non-Smoker
Alcohol: None
Living: Alone
Family History
Family History: CAD (mom and dad)
Allergies / Home Medications
Allergy/AdvReac Type Severity Reaction Status Date / Time
NSAIDS (Non-Steroidal Allergy Has early Verified 07/24/24 11:11
Anti-Inflamma kidney
[Nsaids] insufficiency
Penicillins Allergy Swelling Verified 07/24/24 11:11
pollen extracts Allergy EYES Verified 07/24/24 11:11
WATER,
SNEEZING
�Medication �Instructions �Recorded �Confirmed �Type
loratadine 10 mg tablet 10 mg PO DAILY Allergies 01/15/19 07/24/24 History
baclofen 10 mg tablet 10 mg PO BID Pain 07/24/24 07/24/24 History
buprenorphine HCl 300 mcg buccal 300 mcg buccal Q12H Pain 07/24/24 07/24/24 History
film (Belbuca)
desvenlafaxine succinate 50 mg 50 mg PO DAILY Depression 07/24/24 07/24/24 History
tablet,extended release 24 hr
dicyclomine 10 mg capsule 10 mg PO QIDPRN PRN spasms 07/24/24 07/24/24 History
escitalopram oxalate 20 mg tablet 20 mg PO DAILY Depression 07/24/24 07/24/24 History
(Lexapro)
hydrochlorothiazide 12.5 mg tablet 12.5 mg PO DAILY KIDNEY STONES 07/24/24 07/24/24 History
hydroxyzine HCl 25 mg tablet 25 mg PO DAILY Mental 07/24/24 07/24/24 History
Health/Anxiety
hydroxyzine HCl 50 mg tablet 50 mg PO HS Mental Health/Anxiety 07/24/24 07/24/24 History
levothyroxine 100 mcg tablet 100 mcg PO DAILY Thyroid 07/24/24 07/24/24 History
(Synthroid)
omeprazole 40 mg capsule,delayed 40 mg PO DAILY Gastrointestinal 07/24/24 07/24/24 History
release Issue
oxycodone 10 mg tablet 10 mg PO Q6HPRN PRN severe pains 07/24/24 07/24/24 History
Review of Systems
-
History Source: Patient
All other systems: Negative unless noted
Constitutional: Fever and Chills
Respiratory: Trouble Breathing
Cardiac: Chest Pain
Abdomen/GI: Constipated
Neurological: Other (forgetfulness, confusion)
Physical Exam
Vital Signs
Temp Pulse Resp BP Pulse Ox
98.8 F 82 20 137/82 97
07/25/24 11:00 07/25/24 11:00 07/25/24 11:00 07/25/24 11:00 07/25/24 11:00
Lab Results
07/25/24 08:22
11/27/24 08:22
Troponin I 0.037 ng/ml H* 07/25/24 12:27
Physical Exam
General: Well Developed, Well Nourished and No Apparent Distress
HEENT: Normocephalic and Anicteric
Respiratory: Clear and Non Labored Respirations
Cardiac: Regular Rhythm
Musculoskeletal: No Edema
Skin: Warm and Dry
Neuro: Awake, Alert and Other (forgetful)
Psych: Calm
Impression / Plan
-
Confusion, forgetfulness:
-work-up and management per primary team
Leukocytosis and low grade temps:
-blood and urine cultures no growth so far
-got ABX
-per primary
Abnormal troponin:
-cause is not clear
-0.112, then trended down
-she has intermittent chest discomfort, but it is atypical- see above description
-check echo
-EKG abnormal as noted- will replace K and repeat in AM
Hypokalemia:
-severe
-I have started replacement and am checking mag
Data Reviewed
-
EKG: Tracing Personally Visualized and interpreted (NSR NS ST abnormality prolonged QTC)
Radiology: Report Reviewed by me (Diminished inspiration. Minor linear atelectasis. No acute cardiopulmonary process.)
Medical Tests (Nuc Med, Echo etc): Report Reviewed by me (Cath 08/10/17: Normal left ventricular wall motion with EF 64% LAD: There is a short segment endomyocardial bridge in the mid LAD with 30-40% systolic compression. The LAD is otherwise
angiographically normal. Circumflex: Normal. RCA: Normal dominant vessel.)
Labs: Labs Reviewed by me
[2024-07-25 15:00] VITALS: BP 150/85
[2024-07-25] MEDS: MIRALAX 17 GRAMS PO (15:12)
[2024-07-25] MEDS: KCL ELIXIR 40 MEQ PO ×2 (15:12→19:35)
[2024-07-25 15:59] LABS: Magnesium 1.6 mg/dl (1.6-2.3)
[2024-07-25] MEDS: LOVENOX 40 MG SC (17:18)
[2024-07-25 17:19] LABS: Procalcitonin < 0.05 ng/ml (0.0-0.25)
[2024-07-25 19:33] VITALS: BP 143/82
[2024-07-25] MEDS: COLACE 100 MG PO (19:35)
[2024-07-25] MEDS: ATARAX 50 MG PO (21:44)
[2024-07-25 23:40] VITALS: BP 135/83
--- NOTE | 2024-07-25 23:45 | PTCARENOTE ---
Pt reports taking omeprazole 40mg BID and pepcid 40mg BID and told this RN that she is experiencing indigestion and 'growling' in her stomach. Home med list is showing omeprazole 40mg daily and pt is ordered protonix 40mg daily. CARITO Watson notified,
orders for 1x pepcid 40mg now and pepcid 40mg BID to start tomorrow. Home med list updated by this RN.
[2024-07-26] MEDS: PEPCID 40 MG PO ×3 (00:35→19:28)
[2024-07-26 03:24] VITALS: BP 136/80
[2024-07-26] MEDS: SYNTHROID 100 MCG PO (06:03)
[2024-07-26 07:00] VITALS: BP 149/79
[2024-07-26 07:04] LABS: Hematocrit 34.7 % (37.0-47.0); Hemoglobin 12.3 g/dL (12.0-16.0); Mean Corp Hgb Conc. 35.4 g/dL (33.0-37.0); Mean Corpuscular Hgb 29.4 pg (27.0-31.0); Mean Platelet Volume 9.9 fL (7.4-10.4); Platelet Count 195 10^3/uL (130-400); Red Blood Cell Count 4.18 10^6/uL (4.20-5.40); Red Cell Dist. Width 12.6 % (11.5-14.5); White Blood Cell Count 6.6 10^3/uL (4.8-10.8)
[2024-07-26 07:32] LABS: ALT (SGPT) 21 U/L (0-35); AST (SGOT) 29 U/L (14-36); Albumin 3.1 g/dl (3.5-5.0); Alkaline Phosphatase 55 U/L (38-126); Blood Urea Nitrogen 7 mg/dl (7-17); Calcium 7.9 mg/dl (8.4-10.2); Carbon Dioxide 26 mmol/L (22-30); Chloride 105 mmol/L (98-107); Estimated Creatinine Clearance 83 ml/min; Glucose 94 mg/dl (70-99); Potassium 3.1 mmol/L (3.5-5.1); Sodium 139 mmol/L (135-145); Total Bilirubin 0.8 mg/dl (0.2-1.3); Total Protein 5.3 g/dl (6.3-8.2); eGFR > 60.00
[2024-07-26] MEDS: COLACE 100 MG PO ×2 (07:43→19:28)
[2024-07-26] MEDS: MIRALAX 17 GRAMS PO (07:44)
[2024-07-26] MEDS: PROTONIX 40 MG PO (07:44)
[2024-07-26] MEDS: LIORESAL 10 MG PO ×2 (07:44→19:28)
[2024-07-26] MEDS: ORETIC 12.5 MG PO (07:44)
[2024-07-26] MEDS: PRISTIQ 50 MG PO (07:44)
[2024-07-26] MEDS: CLARITIN 10 MG PO (07:44)
[2024-07-26] MEDS: ATARAX 25 MG PO (07:44)
[2024-07-26] MEDS: LEXAPRO 20 MG PO (07:44)
--- NOTE | 2024-07-26 08:55 | W.PN.HOSP.TC ---
Today's Communication/Plan
-
MRI Brain noted
Echo okay
Appreciate cardiology
Assessment / Plan
Assessment / Plan
Physical Exam
Physical Exam was not performed as patient was not present in her room at the time of attempted patient encounter.
Assessment/Plan
Acute change in mental status-nonfocal on gross exam. Suspect more TME. Unclear at this point the clear precipitating factor. Differential includes narcotic pain regimen, infection .
Tele without events
CT head negative for acute findings. Non focal grossly.
Chest x-ray shows no evidence of acute pathology.
Urinalysis raises concern for contamination , patient recently denied any urinary symptoms and urine culture is negative. Doubt UTI. No indication for antibiotics.
VBG noted. Hold her buccal buprenorphine. Continue with oxycodone as needed for breakthrough pain. Continue on laxatives.
MRI Brain without any acute changes.
CT of the abdomen pelvis shows artifact because of arms positioning but there is diffuse pancreatic fatty filtration. Abnormal LFTs noted. Rule out pancreatic/biliary disease. Normal lipase. Follow LFTs closely -improving.
Leukocytosis with low grade fever - no obvious foci apart from mild LFT abnormalities. CT A/P neg . Check procal .Blood cx are neg so far. Hold abx and follow.
Abnormal troponins-patient without chest pain. EKG without any acute ST-T changes. Consult cardiology: per cardiology echo normal, QT only mildly increase would replete potassium and magnesium as needed.
Prolonged QTc-repeat . Follow on telemetry.
Chronic pain syndrome on chronic home narcotics. Hold buccal buprenorphine. Use as needed oxycodone as before. She is also on baclofen which can be continued.
Depression-continue with home medication
Full code
Anticipated Discharge: 24 - 48 hours
Subjective/Interval History
-
Date of Service: July 26, 2024
Patient was not present in her room at the time of attempted patient encounter. Case was discussed with patient's nurse, who said patient had a small bowel movement this morning, and patient's communications make sense for the most part.
Objective Data
-
Labs:
Laboratory Results
07/26/24
06:25
WBC 6.6
Hgb 12.3
Hct 34.7 L
Plt Count 195
Sodium 139
Potassium 3.1 L
Chloride 105
Carbon Dioxide 26
BUN 7
Creatinine 0.6
Glucose 94
Calcium 7.9 L
Total Bilirubin 0.8
AST 29
ALT 21
Alkaline Phosphatase 55
Vital Signs:
Vital Signs
Temp Pulse Resp BP Pulse Ox
98.4 F 67 18 149/79 98
07/26/24 07:00 07/26/24 07:00 07/26/24 07:00 07/26/24 07:00 07/26/24 07:00
I&O
07/25/24 07/26/24 07/27/24
06:59 06:59 06:59
Intake Total 1040 / 1040 1440 / 1440
Balance 1040 / 1040 1440 / 1440
[2024-07-26] MEDS: KCL ELIXIR 40 MEQ PO (09:11)
[2024-07-26 09:53] LABS: Magnesium 1.7 mg/dl (1.6-2.3)
[2024-07-26 11:00] VITALS: BP 139/86
[2024-07-26 15:00] VITALS: BP 158/90
[2024-07-26] MEDS: ROXICODONE 10 MG PO (17:16)
[2024-07-26] MEDS: LOVENOX 40 MG SC (17:17)
--- NOTE | 2024-07-26 17:42 | W.PN.CD ---
Today's Communication / Plan
-
Keep K and mag replete
Avoid further QT prolonging agents
Outpatient noninvasive cardiovascular testing can be considered.
No further cardiac recommendations at this time, will sign off.
Patient can follow-up with Dr. Lees as an outpatient.
Impression / Plan
-
Abnormal troponin in the setting of acute mental status change, electrolyte abnormality:
-no cp or sob
-0.112, then trended down, Echo normal
-noninvasive testing as an outpatient can be arrange.
Confusion, forgetfulness:
-work-up and management per primary team
Leukocytosis and low grade temps:
-blood and urine cultures no growth so far
-got ABX
-per primary
Hypokalemia:
-severe, Qt mildly prolong on my measurement and correction at 495m/s
-replete k
-avoid further Qt Prolonging agents
Subjective:
she is feeling less confused, no cp or sob
TTE 07/25/24 CONCLUSIONS
Normal left ventricular size, wall thickness and systolic function.
LV ejection fraction is 55-60% .
No significant valvular disease.
Physical Exam
Vital Signs/Labs
Vital Signs
Temp Pulse Resp BP Pulse Ox
98.6 F 76 19 139/86 97
07/26/24 11:00 07/26/24 11:00 07/26/24 11:00 07/26/24 11:00 07/26/24 11:00
07/25/24 07/26/24 07/27/24
06:59 06:59 06:59
Actual Weight 74.072 kg
07/26/24 06:25
07/26/24 06:25
PT 12.8 Sec (11.4-14.6) 07/24/24 11:25
INR 0.94 07/24/24 11:25
APTT 28.8 Sec (23.4-35.0) 07/24/24 11:25
Magnesium 1.7 mg/dl (1.6-2.3) 07/26/24 06:25
LAB Results
07/24/24 07/24/24 07/25/24
20:19 03:45
Troponin I 0.112 H* 0.077 H* 0.063 H*
07/25/24
12:
Troponin I 0.037 H*
Physical Exam
Constitutional: No acute distress
Cardiovascular: Rhythm & rate is regular, Pedal edema is absent, JVD pressure is normal and Systolic murmur absent
Respiratory: Respiratory effort normal, Lungs clear to auscul., Wheeze Absent and Crackles Absent
Neuro/Psych: AO x 3
Data Reviewed
-
Date of Service: July 26, 2024
EKG: Tracing Personally Visualized and interpreted (Normal sinus rhythm, QT interval when corrected 495 ms on my measurement suspect over measurement by automatic reader given U waves seen.) and Other (Sinus)
[2024-07-26 20:15] VITALS: BP 122/72
[2024-07-26 20:43] LABS: Blood Urea Nitrogen 8 mg/dl (7-17); Calcium 8.5 mg/dl (8.4-10.2); Carbon Dioxide 27 mmol/L (22-30); Chloride 103 mmol/L (98-107); Estimated Creatinine Clearance 83 ml/min; Glucose 104 mg/dl (70-99); Potassium 3.6 mmol/L (3.5-5.1); Sodium 138 mmol/L (135-145); eGFR > 60.00
[2024-07-26] MEDS: ATARAX 50 MG PO (22:17)
[2024-07-26 23:18] VITALS: BP 126/73
[2024-07-27] VITALS (7 sets, daily range): BP systolic 100–150; BP diastolic 58–94; PULSE 72–87
[2024-07-27] MEDS: ROXICODONE 10 MG PO ×2 (03:57→19:50)
[2024-07-27] MEDS: SYNTHROID 100 MCG PO (06:18)
[2024-07-27 06:46] LABS: Venous Blood Gas B.E. 3.7 mmol/L (-4 to +4); Venous Blood Gas HCO3 27.7 mmol/L (22-27); Venous Blood Gas O2 Sat % 99.7 %; Venous Blood Gas pCO2 39 mmHg (35-48); Venous Blood Gas pH 7.46 (7.32-7.43); Venous Blood Gas pO2 134 mmHg (30-50)
[2024-07-27 07:13] LABS: Magnesium 1.9 mg/dl (1.6-2.3)
[2024-07-27] MEDS: MIRALAX 17 GRAMS PO (07:47)
[2024-07-27] MEDS: CLARITIN 10 MG PO (07:48)
[2024-07-27] MEDS: LIORESAL 10 MG PO ×2 (07:48→19:41)
[2024-07-27] MEDS: ORETIC 12.5 MG PO (07:48)
[2024-07-27] MEDS: PROTONIX 40 MG PO (07:48)
[2024-07-27] MEDS: PRISTIQ 50 MG PO (07:48)
[2024-07-27] MEDS: COLACE PO (07:49)
[2024-07-27] MEDS: LEXAPRO 20 MG PO (07:50)
[2024-07-27] MEDS: ATARAX 25 MG PO (07:50)
[2024-07-27] MEDS: PEPCID 40 MG PO ×2 (07:50→19:41)
--- NOTE | 2024-07-27 08:03 | PN.CDI ---
CDI
- -
CDI:
Physician Documentation Request
Admit Date: 07/24/24 17:48
Dear Doctor Kedar,
Clinical Indicators:
Home medications include:-Buprenorphine HCl 300 mcg buccal film (Belbuca) 300 mcg buccal Q12H
-Oxycodone 10 mg tablet 10 mg PO Q6HPRN
07/26 PN, 'Chronic pain syndrome on chronic home narcotics. Hold buccal buprenorphine. Use as needed oxycodone as before'
Based on the above, could you clarify in the progress notes, the appropriate diagnosis, if significant, that supports the above medication usage:
Opioid use with dependence
Opioid use only
Other
Use of terms such as suspected, likely, concern for, or probable (associated with a specific diagnosis that is being evaluated, monitored, or treated as if it exists) are acceptable and can be coded in the inpatient setting, when documented at the
time of discharge.
Thank you,
Gabriela Kahn RN BSN
CDI Specialist
available via tiger text
Please use your independent medical judgment in providing your response.
--- NOTE | 2024-07-27 08:14 | PN.CDI ---
CDI
- -
CDI:
Physician Documentation Request
Admit Date: 07/24/24 17:48
Dear Doctor Kedar,
Clinical Indicators:
Patient admitted with acute change in mental status, suspected TME.
07/24 ED report. 'She does have some bruising to her upper extremities.'
IVF: NSS 2.5 L bolus
CK trend:
07/24/24 07/25/24
08:22
Creatine Kinase 882 H 386 H D
Based on the above, could you clarify in the progress notes, the appropriate diagnosis, if significant, that supports the above abnormalities and additional evaluation, monitoring and/or treatment rendered:
Rhabdomyolysis
Elevated CK levels only
Other
Use of terms such as suspected, likely, concern for, or probable (associated with a specific diagnosis that is being evaluated, monitored, or treated as if it exists) are acceptable and can be coded in the inpatient setting, when documented at the
time of discharge.
Thank you,
Gabriela Kahn RN BSN
CDI Specialist
available via tiger text
Please use your independent medical judgment in providing your response.
--- NOTE | 2024-07-27 14:02 | W.PN.HOSP.TC ---
Today's Communication/Plan
-
Consulted neurology (patient with trouble finding words at times) and GI (abdominal pain and stool urgency), appreciate their evaluation and recommendations
Bladder Scans protocol
Assessment / Plan
Assessment / Plan
Physical Exam
General: Not in acute distress
HEENT: Moist Mucous Membranes
Respiratory: Clear to Auscultation Bilaterally
Cardiac: Regular Rhythm and S1/S2
GI: Soft, Nondistended, Normal Bowel Sounds and Tender (in epigastric area)
Neuro: AAO x 3 and No Motor Deficits/Nonfocal exam and grossly intact. Patient was able to get up from bed and go to the bedside commode herself.
Psych: Calm
Assessment/Plan
Acute change in mental status-suspected Toxic Metabolic Encephalopathy
Opioid Use
Trouble Finding Words -- subacute to chronic in nature
Possible Seizure with Stool Urgency/Incontinence reported prior to arrival with hallucinations and trouble finding words at times
-Patient reports doing better than when she came in but still not doing great
-Unclear at this point the clear precipitating factor. Differential includes narcotic pain regimen, infection .
-Tele without events
-CT head negative for acute findings. Non focal grossly.
-MRI Brain also without acute findings
-Consulted neurology given patient's complaints of trouble finding words, appreciate their evaluation and recommendations
-Chest x-ray showed no evidence of acute pathology.
-Urinalysis raises concern for contamination, patient initially denied any urinary symptoms and urine culture is negative. Doubt UTI. No indication for antibiotics currently.
-Blood cultures negative
-Recheck UA given patient's reports of possible urinary retention
-VBG noted. Hold her buccal buprenorphine. Continue with oxycodone as needed for breakthrough pain. Continue on laxatives.
Rhabdomyolysis
-Received intravenous fluids
-Improved
Occult Blood and RBCs in the Urine
Urinary Retention (as per patient report)
-Bladder Scans protocol
-Recheck UA
-Urology follow-up on discharge
Abdominal Pain and Stool Urgency
Diverticulosis
Mild distention of the endometrium
-Consulted GI, appreciate their evaluation and recommendations
-Will consider COMPUTATIONAL GENETICIST consult and nonemergent pelvic ultrasound if needed
Leukocytosis with low grade fever - RESOLVED - no obvious foci apart from mild LFT abnormalities. CT A/P neg . Procal was negative. Blood cultures were negative so far. Hold abx and follow. Check lower extremity ultrasound for DVT and consider CT
Chest to check for PE.
Abnormal troponins-patient without chest pain. EKG without any acute ST-T changes. Consult cardiology: per cardiology echo normal, QT only mildly increase would replete potassium and magnesium as needed.
Prolonged QTc-repeat. Follow on telemetry.
Chronic pain syndrome on chronic home narcotics. Hold buccal buprenorphine. Use as needed oxycodone as before. She is also on baclofen which can be continued.
Depression-continue with home medication
Code Status: Full code
I spent 56 minutes having an extensive discussion with the patient (extensive discussion was per patient request), seeing and examining the patient, chart review, reviewing orders, documentation, and consulting specialists.
Anticipated Discharge: 24 - 48 hours
Subjective/Interval History
-
Date of Service: July 27, 2024
Patient was seen and examined. She reported worsening chronic abdominal pain, stool urgency, concern for urinary retention and trouble finding words.
Objective Data
-
Vital Signs:
Vital Signs
Temp Pulse Resp BP Pulse Ox
98.4 F 77 18 100/58 95
07/27/24 11:00 07/27/24 11:00 07/27/24 11:00 07/27/24 11:00 07/27/24 11:00
I&O
07/26/24 07/27/24 07/28/24
06:59 06:59 06:59
Intake Total 1440 / 1440 1420 / 1420 480 / 480
Output Total 250 / 250
Balance 1440 / 1440 1170 / 1170 480 / 480
--- NOTE | 2024-07-27 14:06 | CON.NEURO ---
Consultation
Order
Date of Consultation: 07/27/24
Requesting Provider:
Reason for Consult:
Subjective/Objective
Subjective Data
Date of Service: July 27, 2024
Patient presented to this [facility] emergency department due to disorientation, hallucination and diarrhea
Objective Data
Vital Signs
Temp Pulse Resp BP Pulse Ox
36.9 C 77 18 100/58 95
07/27/24 11:00 07/27/24 11:00 07/27/24 11:00 07/27/24 11:00 07/27/24 11:00
Lab Results
07/26/24 06:25
07/26/24 20:20
PT 12.8 Sec (11.4-14.6) 07/24/24 11:25
INR 0.94 07/24/24 11:25
APTT 28.8 Sec (23.4-35.0) 07/24/24 11:25
Sodium 138 mmol/L (135-145) 07/26/24 20:20
Potassium 3.6 mmol/L (3.5-5.1) 07/26/24 20:20
BUN 8 mg/dl (7-17) 07/26/24 20:20
Glucose 104 mg/dl (70-99) H 07/26/24 20:20
Calcium 8.5 mg/dl (8.4-10.2) 07/26/24 20:20
Ur Buprenorphine Positive (Negative) H 07/24/24 12:43
Patient Allergies
NSAIDS (Non-Steroidal Anti-Inflamma [Nsaids] Allergy (Verified 07/24/24 11:11)
Has early kidney insufficiency
Penicillins Allergy (Verified 07/24/24 11:11)
Swelling
pollen extracts Allergy (Verified 07/24/24 11:11)
EYES WATER, SNEEZING
Medications
-
Active Medications
Generic Name Dose Route Start Last Admin
Trade Name Freq PRN Reason Stop Dose Admin
Acetaminophen 650 mg 07/24/24 19:43 07/25/24 04:02
Acetaminophen 325 Mg Tablet PO 08/21/24 19:42 650 mg
Q4HPRN PRN Administration
mild pain /fever >100.4
Baclofen 10 mg 07/24/24 20:00 07/27/24 07:48
Baclofen 10 Mg Tablet PO 08/21/24 19:59 10 mg
BID YOMAIRA Administration
Desvenlafaxine Succinate 50 mg 07/25/24 08:00 07/27/24 07:48
Desvenlafaxine Succinate (Pristiq) 50 Mg Tab.Er.24h PO 08/22/24 07:59 50 mg
DAILY YOMAIRA Administration
Dicyclomine HCl 10 mg 07/24/24 19:43 07/25/24 13:37
Dicyclomine 10 Mg Capsule PO 08/21/24 19:42 10 mg
QIDPRN PRN Administration
spasms
Docusate Sodium 100 mg 07/25/24 20:00 07/27/24 07:49
Docusate Sodium 100 Mg Capsule PO 08/22/24 19:59 Not Given
BID YOMAIRA
Enoxaparin Sodium 40 mg 07/24/24 19:43 07/26/24 17:17
Enoxaparin Sodium 40 Mg/0.4 Ml Syringe SC 08/21/24 19:42 40 mg
QPM YOMAIRA Administration
Escitalopram Oxalate 20 mg 07/25/24 08:00 07/27/24 07:50
Escitalopram 20 Mg Tablet PO 08/22/24 07:59 20 mg
DAILY YOMAIRA Administration
Famotidine 40 mg 07/26/24 08:00 07/27/24 07:50
Famotidine 20 Mg Tablet PO 08/23/24 07:59 40 mg
BID YOMAIRA Administration
Hydrochlorothiazide 12.5 mg 07/25/24 08:00 07/27/24 07:48
Hydrochlorothiazide 12.5 Mg Tablet PO 08/22/24 07:59 12.5 mg
DAILY YOMAIRA Administration
Hydroxyzine HCl 25 mg 07/25/24 08:00 07/27/24 07:50
Hydroxyzine 25 Mg Tablet PO 08/22/24 07:59 25 mg
DAILY YOMAIRA Administration
Hydroxyzine HCl 50 mg 07/24/24 22:00 07/26/24 22:17
Hydroxyzine 25 Mg Tablet PO 08/21/24 21:59 50 mg
HS YOMAIRA Administration
Levothyroxine Sodium 100 mcg 07/25/24 06:00 07/27/24 06:18
Levothyroxine 100 Mcg Tablet PO 08/22/24 05:59 100 mcg
DAILY @ 0600 YOMAIRA Administration
Loratadine 10 mg 07/25/24 08:00 07/27/24 07:48
Loratadine 10 Mg Tablet PO 08/22/24 07:59 10 mg
DAILY YOMAIRA Administration
Oxycodone HCl 10 mg 07/24/24 18:27 07/27/24 03:57
Oxycodone 10 Mg Regular Release Tablet PO 08/07/24 18:26 10 mg
Q6HPRN PRN Administration
severe pains
Pantoprazole Sodium 40 mg 07/25/24 08:00 07/27/24 07:48
Pantoprazole 40 Mg Delayed Release Tablet PO 08/22/24 07:59 40 mg
DAILY YOMAIRA Administration
Polyethylene Glycol 17 grams 07/25/24 15:00 07/27/24 07:47
Polyethylene Glycol Powder 17 Grams Packet PO 08/22/24 14:59 17 grams
DAILY YOMAIRA Administration
Sodium Chloride 0 flush 07/24/24 20:00
Sodium Chloride 0.9% (Flush) Syringe IV 08/21/24 19:59
PER PROTOCOL YOMAIRA
Home Medications
�Medication �Instructions �Recorded
loratadine 10 mg tablet 10 mg PO DAILY Allergies 01/15/19
baclofen 10 mg tablet 10 mg PO BID Pain 07/24/24
buprenorphine HCl 300 mcg buccal 300 mcg buccal Q12H Pain 07/24/24
film (Belbuca)
desvenlafaxine succinate 50 mg 50 mg PO DAILY Depression 07/24/24
tablet,extended release 24 hr
dicyclomine 10 mg capsule 10 mg PO QIDPRN PRN spasms 07/24/24
escitalopram oxalate 20 mg tablet 20 mg PO DAILY Depression 07/24/24
(Lexapro)
hydrochlorothiazide 12.5 mg tablet 12.5 mg PO DAILY KIDNEY STONES 07/24/24
hydroxyzine HCl 25 mg tablet 25 mg PO DAILY Mental 07/24/24
Health/Anxiety
hydroxyzine HCl 50 mg tablet 50 mg PO HS Mental Health/Anxiety 07/24/24
levothyroxine 100 mcg tablet 100 mcg PO DAILY Thyroid 07/24/24
(Synthroid)
omeprazole 40 mg capsule,delayed 40 mg PO BID Gastrointestinal Issue 07/24/24
release
oxycodone 10 mg tablet 10 mg PO Q6HPRN PRN severe pains 07/24/24
famotidine 40 mg tablet (Pepcid) 40 mg PO BID 07/25/24
Past History
Past History
ED Past Medical History: Asthma, HTN, Hypothyroidism, Psychiatric (Anxiety, Depression, PTSD, ) and Other (Spinal fracture,chronic back pain, kidney stones. PNA, C-dif, UTI, Renal calculus, Ovarian cyst)
ED Past Surgical History: Appendectomy, Orthopedic (Neck fusion, Right shoulder surgery, Sven knee replacements, ), Urological (renal stent) and Other (Ovarian cyst)
Patient has exhibited threatening behavior?: No
PSI?: No
Social History
Tobacco: Non-smoker
Alcohol: None
Drug: None
Personal:
Living: alone
Employment: Employed
Family History
Family History: Other (Reviewed and noncontributory)
--- NOTE | 2024-07-27 14:22 | CON.NEURO4 ---
Addendum entered and electronically signed by Alberto Lira MD 07/27/24 15:20:
Studies reviewed.
I have personally examined the patient. I reviewed and agree with the SURGICAL PHYSICIAN ASSISTANT's Note.
My addenda:
Awake, alert, interactive. No acute distress.
Speech intact.
Follows 2-step requests w/o difficulty. No tremor.
Extra-ocular movements grossly intact.
Facial movements full and symmetric. Hearing intact to normal conversational volume.
Normal UE movements bilaterally.
Neck: full ROM.
Chest: no dyspnea
Heart: no JVD
Ext: (-) Clubbing, (-) Cyanosis, (-) Edema
IMPRESSIONS/RECOMMENDATIONS:
Abrupt onset of change in mental status
Most likely due to toxic metabolic factors. There is no evidence at this time of seizure, stroke, or primary neurological issue
The patient's reportedly semiacute dysphagia no clear etiology at this time
Supportive care for current function
Consider lumbar puncture if the patient has recurrent change in mental status
Check blood work for potential metabolic causes
Continue thiamine
Speech therapy evaluation
Check acetylcholine receptor antibodies
D/W patient
Will continue to follow patient as needed.
Original Note:
Consultation - Neurology 4
-
CONSULTING PHYSICIAN: Dr. Alberto Lira
REFERRING PHYSICIAN:
DICTATED BY: Emily DANG
DATE/TIME OF REQUEST: 07/27/2024
DATE/TIME OF CONSULTATION: 07/27/2024
Reason for Consultation: confusion
History of Present Illness:
This is a 68 year old Right-handed female who presented to the hospital with acute change in mental status, low grade fever and GI distress 07/24/2024. She was brought in by a friend. Patient has been living alone. She is on FMLA due to right
shoulder issue. She is awaiting a shoulder replacement. She is chronic back pain and is on chronic narcotics. She reports on day of arrival she had forgotten she had lunch plans with a friend. She was not feeling well. When her friend came to
see her she was naked, confused and she found stool all over the bathroom. Per friend she was having difficulty answering questions. The patient herself does remember feeling like she was hallucinating. Her friend brought her to the emergency
department for evaluation. Per patient since admission she has been improving cognitively, no further hallucinations. She feels almost at her baseline. She does report she still having some mild difficulty with word finding. CT of the head was
unremarkable. MRI of the brain without significant findings. She denies any dizziness or focal weakness. She denies any numbness or tingling. She does report intermittent headache but does not have this at this time. She does report for sometime
she has had intermittent difficulty with swallowing. She denied any changes in medication regimen. This seem worse since she is in the hospital. She does feel like she is improving. She is nervous that this may happen again.
Past Medical History: Migraines, kidney stones, hypothyroid, compression fracture of spine, degenerative joint disease bilateral, hyperlipidemia, chronic renal disease, allergies, osteoporosis, right, ovarian cyst, obstructive sleep apnea,
hypertension, toxic shock syndrome, high blood pressure, depression, anxiety, hiatal hernia, chronic pain, Asthma, posttraumatic stress disorder, pneumonia, C. difficile, GERD
Surgical History: Right shoulder surgery with screws, cervical spine fusion, Ovarian cyst removal, bilateral knee surgeries,Appendectomy, renal stent,
Family History: Reviewed noncontributory
Social history: Non-smoker, lives alone, currently on FMLA.
Allergies: see below
Home Medications: see below
Review of Symptoms:
Patient denies any fever, headache, chest pain, shortness of breath. She has been having difficulty with urinary retention and diarrhea.
�
Vital Signs: see below
Physical Exam:
The patient is afebrile, heart sounds S1 and S2 are regular, and chest is clear to auscultation bilaterally.
Neurologic Examination:
The patient is awake, alert and oriented x 3. She is able to follow commands and answer questions appropriately. There is no aphasia or dysarthria. On cranial nerve assessment, pupils are 3 mm bilateral, round and reactive to light and
accommodation. Visual ogden are full. Extraocular movements are intact. Facial sensations are intact and bilaterally symmetrical, there is no facial asymmetry. Hearing is intact bilaterally to normal conversation volume. Tongue palate and uvula are
midline. Sternocleidomastoid strengths are full bilaterally. Motor strengths are 5/5 bilateral upper and lower extremities on medical research Teller scale. There is no drift or involuntary movement noted. Deep tendon reflexes are brisk bilateral
upper and lower extremities and Babinski is absent bilaterally. Sensations of touch and temperature are intact and bilaterally symmetrical. There was no extinction noted on double simultaneous stimulation. Coordination is intact by finger to nose
bilaterally.
Lab Results: see below
Neuro Imaging:
CT head 07/24/2024-no acute intracranial abnormality
MRI brain 07/26/2024-No MRI evidence for an acute infarct.
Impression:
GERALDO CANO is a 68 year old F who has presented to the hospital with acute confusion, low grade temp, and GI distress and has also noted difficulty with swallowing.
Differentials for the patient's presentation include TME vs exacerbation of underlying cognitive deficits, no stroke noted on MRI brain.
Recommendations:
-reviewed CT head and MRI brain with no clear cause of confusion
-will order additional labs for underlying cause
-start thiamine 100mg daily
-can consider further diagnostic studies such as LP if confusion again worsens, no clear indication at this time
-no clear indication for EEG
-will order speech therapy for evaluation of swallowing difficult
-treatment of possible underlying infection per primary care team
-DVT prophylaxis
-rest of medical management per primary care team
Discussed patient care with patient, nursing and neurologist, Dr. Lira.
--- NOTE | 2024-07-27 15:02 | CON.GI ---
Addendum entered and electronically signed by Nate Waller MD 07/27/24 17:39:
I personally performed a history and physical exam of the patient and discussed management with the resident. I reviewed the resident's note and agree with the documented findings and plan of care HPI/CC.
This is a 68-year-old female who presents with altered mental status thought likely due to toxic metabolic encephalopathy. GIs been consulted for abdominal pain, constipation alternating with diarrhea, dysphagia. She is a very tangential
historian. Initially she states she had lost weight but apparently this was sometime ago. I reviewed her weight trends in [employer] and it looks like she did lose weight and then gained weight which is what she had stated. In regards to her
dysphagia, this seems to be more so related to pills. She does have some issues with food intermittently. She had an upper endoscopy April 2023 at [facility] with a 2 cm hiatal hernia, gastritis, mild erythema in the duodenum, per Dr.
Shanthi's notes no H. pylori. She saw Dr. Maki last in February 2024 and at that time she was taking MiraLAX and Questran for her irregular stools. She also had abdominal pain at that time as well. She had recommended a colonoscopy which was done
and showed colonic polyps in February. She has not followed up with Dr. Maki since then.
She had a CT abd here 07/24 which showed a fatty inflammation of the pancreas, otherwise no other GI abnormalities.
All of her GI symptoms are chronic. I do not think her chronic GI symptoms are related to her acute mental status change. I recommend outpatient follow-up. I have scheduled her an appointment with Dr. Maki August 02 at 8 AM for follow-up.
GI will sign off please call with ?s or changes in patient clinical status.
Original Note:
Consultation
-
Date/Time Consultation Requested: 07/27/24,13:59
Date/Time Consultation Performed: 07/27/24,15:05
Requesting Provider: Yuniel Thacker
Performing Provider: Nate Waller Shahzadi, Sandal
Reason for Consultation: Tenesmus
Medical History
Chief Complaint / HPI
Chief Complaint: Toxic metabolic encephalopathy
History of Present Illness:
Patient is a 68-year-old female admitted for workup of toxic metabolic encephalopathy. The workup has not showed a clear source but the patient seems to be improving in terms of insight and judgment. GI consulted for tenesmus and pain in the
epigastric region 30 minutes after food intake. Patient says that she has been in a lot of stress for the last 6 months in terms of her surgery of shoulder that is coming up. She has been dealing with alternating constipation and diarrhea for
about 6 months to a year for which she had a complete evaluation done at [facility]? She had an appendectomy done that showed an ulcer for which she was treated and there was a hiatal hernia. She had MRI, ultrasounds, blood test done that showed
nothing.
According to the patient she has pain in the epigastric region about 30 to 40 minutes after having food and she has lost about 30 pounds in the last 6 months due to the pain. She has alternating bowel habits, constipation for which she takes
MiraLAX and diarrhea for which she takes as she which she could not name that stops the diarrhea. She also uses a blue pill for cramping abdominal pain. She says that sometimes the stool is so hard to pass that it causes her to bleed for some time
but it stops right away and she believes it is due to the hemorrhoids. She currently denies any blood in the stools or melena. She denies any nausea, vomiting, sour taste in the mouth, food sticking in the throat, or any active bleed.
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 She had multiple orthopedic issues due to her athletic lifestyle, she had
bilateral knee surgery, back surgery, shoulder surgery for labral tears and neck surgery. She says she has been in a lot of pain due to multiple surgeries and admits to chronic use of narcotics both prescribed and nonprescribed. She denies any use
of benzodiazepines or sedatives. She had an upcoming surgery for which she was in a lot of stress and her eating habits have recently been all over the place since her wrist injury.
She describes her mood as depressed, she takes Lexapro for her depression and follows up with a psychiatrist for her anxiety and depression symptoms. She agrees that her mood could be a contributing factor to her GI symptoms.
Past Medical History
Past Medical History: Other (Recurrent kidney stones, anxiety, depression, toxic shock syndrome, chronic pain syndrome, peptic ulcer disease)
Past Surgical History: Orthopedic (Bilateral knee replacement, shoulder labral tear, back surgery, kidney stones)
Social History
Tobacco: Non-Smoker
Alcohol: Former (Used to binge drink alcohol but quit 13 years ago)
Drug: Narcotics
Personal: Single
Living: Alone
Employment: Other ([employer])
Family History
Family History: Reviewed & Not Pertinent
Allergies / Home Medications
Allergy/AdvReac Type Severity Reaction Status Date / Time
NSAIDS (Non-Steroidal Allergy Has early Verified 07/24/24 11:11
Anti-Inflamma kidney
[Nsaids] insufficiency
Penicillins Allergy Swelling Verified 07/24/24 11:11
pollen extracts Allergy EYES Verified 07/24/24 11:11
WATER,
SNEEZING
�Medication �Instructions �Recorded
loratadine 10 mg tablet 10 mg PO DAILY Allergies 01/15/19
baclofen 10 mg tablet 10 mg PO BID Pain 07/24/24
buprenorphine HCl 300 mcg buccal 300 mcg buccal Q12H Pain 07/24/24
film ([place]uca)
desvenlafaxine succinate 50 mg 50 mg PO DAILY Depression 07/24/24
tablet,extended release 24 hr
dicyclomine 10 mg capsule 10 mg PO QIDPRN PRN spasms 07/24/24
escitalopram oxalate 20 mg tablet 20 mg PO DAILY Depression 07/24/24
(Lexapro)
hydrochlorothiazide 12.5 mg tablet 12.5 mg PO DAILY KIDNEY STONES 07/24/24
hydroxyzine HCl 25 mg tablet 25 mg PO DAILY Mental 07/24/24
Health/Anxiety
hydroxyzine HCl 50 mg tablet 50 mg PO HS Mental Health/Anxiety 07/24/24
levothyroxine 100 mcg tablet 100 mcg PO DAILY Thyroid 07/24/24
(Synthroid)
omeprazole 40 mg capsule,delayed 40 mg PO BID Gastrointestinal Issue 07/24/24
release
oxycodone 10 mg tablet 10 mg PO Q6HPRN PRN severe pains 07/24/24
famotidine 40 mg tablet (Pepcid) 40 mg PO BID 07/25/24
Review of Systems
-
All other systems: A 12 pt ROS was Negative except as stated above in HPI
Vital Signs
Temp Pulse Resp BP Pulse Ox
98.4 F 77 18 100/58 95
07/27/24 11:00 07/27/24 11:00 07/27/24 11:00 07/27/24 11:00 07/27/24 11:00
Physical Exam
Exam
General: Well Developed, Well Nourished and Comfortable
HEENT: Anicteric and Moist Mucous Membranes
Respiratory: Clear and Other (No wheezes rhonchi or rails)
Cardiac: S1/S2 and Regular Rhythm
GI: Soft, Non Tender and Normal Bowel Sounds
Musculoskeletal: No Clubbing and No Edema
Skin: Warm and Dry
Neuro: Awake, Alert and No Motor Deficits
Hematologic/Lymphatic: No Lymphadenopathy
Psych: Calm
Results
WBC 6.6 10^3/uL (4.8-10.8) 07/26/24 06:25
Hgb 12.3 g/dL (12.0-16.0) 07/26/24 06:25
Hct 34.7 % (37.0-47.0) L 07/26/24 06:25
MCV 83.0 fL (81.0-99.0) 07/26/24 06:25
Plt Count 195 10^3/uL (130-400) 07/26/24 06:25
Absolute Neuts (auto) 10.3 10^3/uL (1.4-6.5) H 07/24/24 11:25
PT 12.8 Sec (11.4-14.6) 07/24/24 11:25
INR 0.94 07/24/24 11:25
APTT 28.8 Sec (23.4-35.0) 07/24/24 11:25
Sodium 138 mmol/L (135-145) 07/26/24 20:20
Potassium 3.6 mmol/L (3.5-5.1) 07/26/24 20:20
Chloride 103 mmol/L (98-107) 07/26/24 20:20
Carbon Dioxide 27 mmol/L (22-30) 07/26/24 20:20
BUN 8 mg/dl (7-17) 07/26/24 20:20
Creatinine 0.6 mg/dL (0.6-1.0) 07/26/24 20:20
Calcium 8.5 mg/dl (8.4-10.2) 07/26/24 20:20
Total Bilirubin 0.8 mg/dl (0.2-1.3) 07/26/24 06:25
AST 29 U/L (14-36) 07/26/24 06:25
ALT 21 U/L (0-35) 07/26/24 06:25
Alkaline Phosphatase 55 U/L (38-126) 07/26/24 06:25
Lipase 50 U/L (23-300) 07/24/24 11:25
Diagnostic Image Results:
Prior GI Procedures:
EGD: As per the patient about 1-1/2 years ago and that showed a hiatal hernia and an ulcer
Colonoscopy: February 2024
Impression: - One 2 mm polyp in the transverse colon, removed with
a jumbo cold forceps. Resected and retrieved.
- One 3 mm polyp in the descending colon, removed with
a cold snare. Resected and retrieved.
- Diverticulosis in the sigmoid colon and in the
descending colon.
Assessment / Plan
-
IMPRESSION
A 68-year-old female dealing with a lot of stress because of her upcoming shoulder surgery, admitted for workup of toxic metabolic encephalopathy, GI consulted for tenesmus and crampy abdominal pain after food intake. Lost 30 pounds over 6 months
and describes her bowel movements as alternating between constipation and diarrhea but denies any blood/melena. Past history includes treatment of a peptic ulcer/ has a hiatal hernia/internal hemorrhoids
ASSESSMENT/PLAN
Signs and symptoms consistent with irritable bowel syndrome/peptic ulcer disease
No bleeding/melena
Could be related to the stress/infection
could be related to Narcotic overuse
Educated about the diagnosis, prognosis, management
Patient recently had a colonoscopy done in February 2024 that did not show any significant findings
Can follow-up with GI on outpatient basis
GI will continue to follow
-
-
Thank you for consultation and allowing me to participate in the patient's care. Please call the patient consumer marketer GI physician during the after hours with any questions or concerns.
--- NOTE | 2024-07-27 15:42 | CM ---
CM met with patient bedside, anxious about returning home. PT present, will evaluate patient, patient likely agreeable to SNF. CM returned to discuss SNF referrals, patient not present at current time. CM will return to discuss which SNF patient
would like referrals to. CM will continue to follow for all discharge planning needs.
Plan; SNF once facility found, will need insurance auth.
[2024-07-27] MEDS: LOVENOX 40 MG SC (16:30)
[2024-07-27 16:45] LABS: Free T4 1.45 ng/dl (0.78-2.19)
[2024-07-27 16:59] LABS: TSH 6.08 uIU/ml (0.47-4.68)
[2024-07-27 17:05] LABS: Urine Albumin Negative (Neg - Trace); Urine Bilirubin Negative (Negative); Urine Character Clear (Clear); Urine Color Yellow; Urine Glucose Negative (Negative); Urine Ketone Negative (Negative); Urine Leukocyte Negative (Negative); Urine Nitrite Negative (Negative); Urine Occult Blood Negative (Negative); Urine Specific Gravity 1.005 (<1.030); Urine Urobilinogen Negative (Neg - 1+)
[2024-07-27 17:35] LABS: Folate 17.8 ng/ml (2.76-20); Vitamin B12 386 pg/ml (239-931)
[2024-07-27] MEDS: COLACE 100 MG PO (19:41)
[2024-07-27] MEDS: ATARAX 50 MG PO (21:47)
[2024-07-27] MEDS: TYLENOL 650 MG PO (23:28)
[2024-07-28 03:00] VITALS: BP 139/89
[2024-07-28] MEDS: ROXICODONE 10 MG PO ×3 (03:51→16:36)
[2024-07-28] MEDS: SYNTHROID 100 MCG PO (06:42)
[2024-07-28 07:35] VITALS: BP 125/63
--- NOTE | 2024-07-28 08:05 | PTOTSP ---
Speech Language Pathology
Pt seen for clinical bedside swallow evaluation. P.O. trials of regular solids and thin liquids provided. Adequate mastication, bolus formation, and A-P transit noted with no oral residue. Effortful swallow noted with regular solids and pt
reported globus sensation in chest briefly. No overt signs of aspiration.
Pt with hx of esophageal dysphagia with known hiatal hernia, gastritis, and mild erythema of duodenum. Pt with reports of globus sensation with solids and pills at level of sternal notch. She denies difficulty with liquids. Suspect symptoms
related to known esophageal dysphagia. However, pt with hx of ACDF and has significant anxiety regarding possibility of choking. Recommend instrumental swallowing assessment to rule out oropharyngeal dysphagia.
Recommend:
(1) Regular solids/thin liquids
(2) VSE /. If discharges prior, can get done as outpatient
(3) Esophageal precautions
(4) Meds whole in puree
(5) BUNDLE COLLECTOR to continue to follow
--- NOTE | 2024-07-28 09:05 | W.PN.HOSP.TC ---
Today's Communication/Plan
-
Patient requested to stay here for VSE on Tuesday
Doing okay, stable, not confused
Assessment / Plan
Assessment / Plan
Physical Exam
General: Not in acute distress
HEENT: Moist Mucous Membranes
Respiratory: Clear to Auscultation Bilaterally
Cardiac: Regular Rhythm and S1/S2
GI: Soft, Nondistended, Normal Bowel Sounds and Tender (in epigastric area)
Neuro: AAO x 3 and No Motor Deficits/Nonfocal exam and grossly intact. Patient was able to get up from bed and go to the bedside commode herself.
Psych: Calm
Assessment/Plan
Acute change in mental status-suspected Toxic Metabolic Encephalopathy
Opioid Use
Trouble Finding Words -- subacute to chronic in nature
Possible Seizure with Stool Urgency/Incontinence reported prior to arrival with hallucinations and trouble finding words at times
-Patient reports doing better than when she came in but still not doing great
-Unclear at this point the clear precipitating factor. Differential includes narcotic pain regimen, infection .
-Tele without events
-CT head negative for acute findings. Non focal grossly.
-MRI Brain also without acute findings
-Consulted neurology given patient's complaints of trouble finding words, appreciate their evaluation and recommendations: no evidence at this time of seizure, stroke,
or primary neurological issue
-Chest x-ray showed no evidence of acute pathology.
-Urinalysis raises concern for contamination, patient initially denied any urinary symptoms and urine culture is negative. Doubt UTI. No indication for antibiotics currently.
-Blood cultures negative
-Rechecked urinalysis: completely unremarkable
-VBG noted. Hold her buccal buprenorphine. Continue with oxycodone as needed for breakthrough pain. Continue on laxatives.
Rhabdomyolysis
-Received intravenous fluids
-Improved
Occult Blood and RBCs in the Urine
Urinary Retention (as per patient report)
-Bladder Scans protocol
-Rechecked urinalysis: completely unremarkable
-Urology follow-up on discharge
Abdominal Pain and Stool Urgency
Diverticulosis
Mild distention of the endometrium
-Consulted GI, appreciate their evaluation and recommendations: no inpatient work-up, follow-up appointment with Dr. Maki August 02 at 8 AM for follow-up
-Will consider INSTRUMENTATION SUPERVISOR consult and nonemergent pelvic ultrasound if needed
Leukocytosis with low grade fever - RESOLVED - no obvious foci apart from mild LFT abnormalities. CT A/P neg . Procal was negative. Blood cultures were negative so far. Hold abx and follow. Lower extremity ultrasound negative for DVT, CT Chest
showed no PE; I communicated (via [employer]) with radiologist Dr. Yves Ogden who said the CT Abdomen/Pelvis from 07/24 is adequate to show that there is no venous thromboembolism in that imaging.
Abnormal troponins-patient without chest pain. EKG without any acute ST-T changes. Consult cardiology: per cardiology echo normal, QT only mildly increase would replete potassium and magnesium as needed.
Prolonged QTc-repeat. Follow on telemetry.
Chronic pain syndrome on chronic home narcotics. Hold buccal buprenorphine. Use as needed oxycodone as before. She is also on baclofen which can be continued.
Depression-continue with home medication
Code Status: Full code
Diet: Per Speech on 07/28/24: 'Swallow eval completed on this patient. I think her issues are mostly esophageal in nature, but recommend VSE to rule out pharyngeal dysphagia. Is she going to be here Tuesday? We can do it Tuesday if so, if you can
order it for 07/30. If not, we can look at getting it done as an outpatient. Let me know'
Anticipated Discharge: > 48 hours
Subjective/Interval History
-
Date of Service: July 28, 2024
Patient was seen and examined. She reported some dysphagia sensation in her esophagus as well as symptomatic orthostatic hypotension yesterday.
Objective Data
-
Vital Signs:
Vital Signs
Temp Pulse Resp BP Pulse Ox
97.6 F 72 18 139/89 98
07/28/24 03:00 07/28/24 03:00 07/28/24 03:00 07/28/24 03:00 07/28/24 03:00
I&O
07/27/24 07/28/24 07/29/24
06:59 06:59 06:59
Intake Total 1420 / 1420 480 / 480 240 / 240
Output Total 250 / 250
Balance 1170 / 1170 480 / 480 240 / 240
[2024-07-28] MEDS: LIORESAL 10 MG PO ×2 (10:04→20:17)
[2024-07-28] MEDS: COLACE PO ×3 (10:08→20:20)
[2024-07-28] MEDS: PRISTIQ 50 MG PO (10:09)
[2024-07-28] MEDS: MIRALAX PO (10:09)
[2024-07-28] MEDS: CLARITIN 10 MG PO (10:09)
[2024-07-28] MEDS: PEPCID 40 MG PO ×2 (10:10→20:17)
[2024-07-28] MEDS: PROTONIX 40 MG PO (10:10)
[2024-07-28] MEDS: ORETIC 12.5 MG PO (10:16)
[2024-07-28] MEDS: LEXAPRO 20 MG PO (10:17)
[2024-07-28] MEDS: ATARAX 25 MG PO (10:18)
[2024-07-28 10:19] LABS: Magnesium 1.9 mg/dl (1.6-2.3)
[2024-07-28 11:30] VITALS: BP 133/83
[2024-07-28] MEDS: BENTYL 10 MG PO (11:50)
[2024-07-28] MEDS: TYLENOL 650 MG PO ×2 (14:18→20:22)
[2024-07-28 15:20] VITALS: BP 122/74
[2024-07-28] MEDS: LOVENOX 40 MG SC (16:38)
[2024-07-28] MEDS: ATARAX 50 MG PO (21:16)
[2024-07-29 01:32] VITALS: BP 128/74
[2024-07-29] MEDS: ROXICODONE 10 MG PO ×4 (02:50→21:36)
[2024-07-29] MEDS: SYNTHROID 100 MCG PO (06:29)
[2024-07-29] MEDS: TYLENOL 650 MG PO ×3 (06:29→20:47)
--- NOTE | 2024-07-29 07:39 | W.PN.HOSP.TC ---
Today's Communication/Plan
-
Patient strongly requested no discharge until her VSE is completed tomorrow
Anticipate discharge tomorrow after VSE
Assessment / Plan
Assessment / Plan
Physical Exam
General: Not in acute distress
HEENT: Moist Mucous Membranes
Respiratory: Clear to Auscultation Bilaterally
Cardiac: Regular Rhythm and S1/S2
GI: Soft, Nondistended, Normal Bowel Sounds and Mildly Tender (in epigastric area)
Neuro: AAO x 3 and No Motor Deficits/Nonfocal exam and grossly intact
Psych: Calm
Assessment/Plan
Acute change in mental status-suspected Toxic Metabolic Encephalopathy
Opioid Use
Trouble Finding Words -- subacute to chronic in nature
Possible Seizure with Stool Urgency/Incontinence reported prior to arrival with hallucinations and trouble finding words at times
-Patient reports doing better than when she came in but still not doing great
-Unclear at this point the clear precipitating factor. Differential includes narcotic pain regimen, infection .
-Tele without events
-CT head negative for acute findings. Non focal grossly.
-MRI Brain also without acute findings
-Consulted neurology given patient's complaints of trouble finding words, appreciate their evaluation and recommendations: no evidence at this time of seizure, stroke,
or primary neurological issue
-Chest x-ray showed no evidence of acute pathology.
-Urinalysis raises concern for contamination, patient initially denied any urinary symptoms and urine culture is negative. Doubt UTI. No indication for antibiotics currently.
-Blood cultures negative
-Rechecked urinalysis: completely unremarkable
-VBG noted. Hold her buccal buprenorphine. Continue with oxycodone as needed for breakthrough pain. Continue on laxatives.
Rhabdomyolysis
-Received intravenous fluids
-Improved
Occult Blood and RBCs in the Urine
Urinary Retention (as per patient report)
-Bladder Scans protocol
-Rechecked urinalysis: completely unremarkable
-Urology follow-up on discharge
Abdominal Pain and Stool Urgency
Diverticulosis
Mild distention of the endometrium
-Consulted GI, appreciate their evaluation and recommendations: no inpatient work-up, follow-up appointment with Dr. Maki August 02 at 8 AM for follow-up
-Will consider TWO NEEDLE MACHINE OPERATOR consult and nonemergent pelvic ultrasound if needed
Leukocytosis with low grade fever - RESOLVED - no obvious foci apart from mild LFT abnormalities. CT A/P neg . Procal was negative. Blood cultures were negative so far. Hold abx and follow. Lower extremity ultrasound negative for DVT, CT Chest
showed no PE; I communicated (via [employer]) with radiologist Dr. Yves Ogden who said the CT Abdomen/Pelvis from 07/24 is adequate to show that there is no venous thromboembolism in that imaging.
Abnormal troponins-patient without chest pain. EKG without any acute ST-T changes. Consult cardiology: per cardiology echo normal, QT only mildly increase would replete potassium and magnesium as needed.
Prolonged QTc-repeat. Follow on telemetry.
Chronic pain syndrome on chronic home narcotics. Hold buccal buprenorphine. Use as needed oxycodone as before. She is also on baclofen which can be continued.
Depression-continue with home medication
Code Status: Full code
Diet: Per Speech on 07/28/24: 'Swallow eval completed on this patient. I think her issues are mostly esophageal in nature, but recommend VSE to rule out pharyngeal dysphagia. Is she going to be here Tuesday? We can do it Tuesday if so, if you can
order it for 07/30. If not, we can look at getting it done as an outpatient. Let me know'
Anticipated Discharge: Within 24 hours
Subjective/Interval History
-
Date of Service: July 29, 2024
Patient was seen and examined. She reported no new symptoms or complaints.
Objective Data
-
Vital Signs:
Vital Signs
Temp Pulse Resp BP Pulse Ox
98.1 F 61 16 128/74 94
07/29/24 01:32 07/29/24 01:32 07/29/24 01:32 07/29/24 01:32 07/29/24 01:32
I&O
07/28/24 07/29/24 07/30/24
06:59 06:59 06:59
Intake Total 480 / 480 960 / 960
Output Total 200 / 200
Balance 480 / 480 760 / 760
[2024-07-29 07:50] VITALS: BP 119/66
[2024-07-29] MEDS: ORETIC 12.5 MG PO (08:58)
[2024-07-29] MEDS: LEXAPRO 20 MG PO (08:58)
[2024-07-29] MEDS: LIORESAL 10 MG PO ×2 (08:59→20:08)
[2024-07-29] MEDS: PRISTIQ 50 MG PO (08:59)
[2024-07-29] MEDS: ATARAX 25 MG PO (08:59)
[2024-07-29] MEDS: PROTONIX 40 MG PO (08:59)
[2024-07-29] MEDS: PEPCID 40 MG PO ×2 (08:59→20:08)
[2024-07-29] MEDS: CLARITIN 10 MG PO (08:59)
[2024-07-29] MEDS: MIRALAX PO (09:02)
[2024-07-29] MEDS: COLACE PO (09:02)
[2024-07-29 15:37] VITALS: BP 108/56
[2024-07-29] MEDS: LOVENOX 40 MG SC (17:11)
[2024-07-29] MEDS: COLACE 100 MG PO (20:08)
[2024-07-29] MEDS: ATARAX 50 MG PO (21:35)
[2024-07-29 23:23] VITALS: BP 117/71
[2024-07-30] MEDS: TYLENOL 650 MG PO ×3 (03:19→14:31)
[2024-07-30] MEDS: ROXICODONE 10 MG PO ×3 (05:26→18:53)
[2024-07-30] MEDS: SYNTHROID 100 MCG PO (05:26)
[2024-07-30 07:43] VITALS: BP 111/68
--- NOTE | 2024-07-30 08:30 | PTOTSP ---
Speech Language Pathology
VIDEOFLUOROSCOPIC SWALLOWING EXAMINATION (VSE) completed. Oropharyngeal WFL. Trace intermittent pharyngeal residue. Mildly decreased anterior hyoid movement with transient supraglottic penetration (PES 2). No persistent penetration or any
aspiration noted. Pt throat clearing throughout study in absence of dysfunction.
Esophageal sweep demonstrated residue without backflow. Pt follows with GI with outpatient appointment scheduled for 08/02. Suspect esophageal etiology for complaints of globus sensation in throat.
Recommend:
(1) Continue regular solids/thin liquids
(2) Esophageal precautions
(3) Meds as tolerated
(4) SCREEN PRINTER to sign off. Please reconsult as indicated
--- NOTE | 2024-07-30 09:32 | W.PN.HOSP.TC ---
Today's Communication/Plan
-
Discharge to short-term rehab when authorization has been obtained
Assessment / Plan
Assessment / Plan
Assessment/Plan
Acute change in mental status-suspected Toxic Metabolic Encephalopathy
Opioid Use
Trouble Finding Words -- subacute to chronic in nature
Possible Seizure with Stool Urgency/Incontinence reported prior to arrival with hallucinations and trouble finding words at times
-Patient reports doing better than when she came in but still not doing great
-CT head negative for acute findings. Non focal grossly.
-MRI Brain also without acute findings
-Consulted neurology given patient's complaints of trouble finding words, appreciate their evaluation and recommendations: no evidence at this time of seizure, stroke,
or primary neurological issue
-Chest x-ray showed no evidence of acute pathology.
-Urinalysis raises concern for contamination, patient initially denied any urinary symptoms and urine culture is negative. Doubt UTI. No indication for antibiotics currently.
-Blood cultures negative
-Rechecked urinalysis: completely unremarkable
-VBG noted. Hold her buccal buprenorphine. Continue with oxycodone as needed for breakthrough pain. Continue on laxatives.
Rhabdomyolysis
-Received intravenous fluids
-Improved
Occult Blood and RBCs in the Urine
Urinary Retention (as per patient report)
-Bladder Scans protocol
-Rechecked urinalysis: completely unremarkable
-Urology follow-up on discharge
Abdominal Pain and Stool Urgency
Diverticulosis
Mild distention of the endometrium
-Consulted GI, appreciate their evaluation and recommendations: no inpatient work-up, follow-up appointment with Dr. Maki August 02 at 8 AM for follow-up
Esophageal dysphagia
-VSE on 07/30 within normal limits, recommend GI follow-up as above
Leukocytosis with low grade fever - RESOLVED - no obvious foci apart from mild LFT abnormalities. CT A/P neg . Procal was negative. Blood cultures were negative so far. Hold abx and follow. Lower extremity ultrasound negative for DVT, CT Chest
showed no PE
Abnormal troponins-patient without chest pain. EKG without any acute ST-T changes. Consult cardiology: per cardiology echo normal, QT only mildly increase would replete potassium and magnesium as needed.
Prolonged QTc-repeat. Follow on telemetry.
Chronic pain syndrome on chronic home narcotics. Hold buccal buprenorphine. Use as needed oxycodone as before. She is also on baclofen which can be continued.
Depression-continue with home medication
Code Status: Full code
Total time spent to see the patient on the floor, examine the patient, review data and lab results, discuss treatment plan with patient, nursing staff around 35 minutes.
Physical Exam
General: Not in acute distress
HEENT: Moist Mucous Membranes
Respiratory: Clear to Auscultation Bilaterally
Cardiac: Regular Rhythm and S1/S2
GI: Soft, Nondistended, Normal Bowel Sounds and Mildly Tender (in epigastric area)
Neuro: AAO x 3 and No Motor Deficits/Nonfocal exam and grossly intact
Psych: Calm
Anticipated Discharge: Within 24 hours
Subjective/Interval History
-
Date of Service: July 30, 2024
Patient complains of chronic shoulder pain, chronic abdominal pain, chronic dysphagia. No fever, no vomiting.
Objective Data
-
Vital Signs:
Vital Signs
Temp Pulse Resp BP Pulse Ox
98.4 F 61 18 111/68 98
07/30/24 07:43 07/30/24 07:43 07/30/24 07:43 07/30/24 07:43 07/30/24 07:43
I&O
07/29/24 07/30/24 07/31/24
06:59 06:59 06:59
Intake Total 960 / 960 1420 / 1420
Output Total 200 / 200 500 / 500
Balance 760 / 760 920 / 920
--- NOTE | 2024-07-30 09:59 | CM ---
Addendum entered by Maribell Masters 07/30/24 12:39:
Patient seen bedside, discussed [facility] able [facility] accept patient once auth approved. Patient will require ambulance transport. IMM reviewed, signed, placed in chart, patient declining a copy.
Plan; [facility], once auth approved, will need transport.
Original Note:
CM reviewed chart, met with patient bedside, discussed SNF recommendations. Patient agreeable for referrals to [facility], placed in [facility]. Patient will require insurance auth, will need updated PT/OT notes. CM will continue to follow
for all discharge planning needs.
Plan; SNF, awaiting bed availability from [facility], once bed found will initiate auth.
[2024-07-30] MEDS: PROTONIX 40 MG PO (10:01)
[2024-07-30] MEDS: LIORESAL 10 MG PO ×2 (10:02→21:11)
[2024-07-30] MEDS: PRISTIQ 50 MG PO (10:02)
[2024-07-30] MEDS: CLARITIN 10 MG PO (10:02)
[2024-07-30] MEDS: PEPCID 40 MG PO ×2 (10:02→21:11)
[2024-07-30] MEDS: ATARAX 25 MG PO (10:10)
[2024-07-30] MEDS: ORETIC 12.5 MG PO (10:10)
[2024-07-30] MEDS: LEXAPRO 20 MG PO (10:11)
[2024-07-30] MEDS: MIRALAX 17 GRAMS PO (10:14)
[2024-07-30] MEDS: COLACE PO (10:16)
[2024-07-30] MEDS: BENTYL 10 MG PO (10:31)
[2024-07-30 11:00] VITALS: BP 113/83; BP 125/84; BP 129/81; BP 142/70; PULSE 68; PULSE 70; PULSE 82
[2024-07-30 13:59] VITALS: BP 119/66; BP 137/76; PULSE 82
[2024-07-30] MEDS: LOVENOX 40 MG SC (18:52)
[2024-07-30] MEDS: COLACE 100 MG PO (21:11)
[2024-07-30] MEDS: ATARAX 50 MG PO (21:12)
[2024-07-30 23:21] VITALS: BP 104/66
[2024-07-31] MEDS: ROXICODONE 10 MG PO ×2 (01:01→08:47)
[2024-07-31] MEDS: SYNTHROID 100 MCG PO (05:55)
[2024-07-31] MEDS: TYLENOL 650 MG PO ×2 (05:57)
[2024-07-31 07:00] VITALS: BP 102/64
[2024-07-31] MEDS: LEXAPRO 20 MG PO (08:35)
[2024-07-31] MEDS: PEPCID 40 MG PO (08:35)
[2024-07-31] MEDS: ORETIC 12.5 MG PO (08:35)
[2024-07-31] MEDS: CLARITIN 10 MG PO (08:35)
[2024-07-31] MEDS: PRISTIQ 50 MG PO (08:35)
[2024-07-31] MEDS: ATARAX 25 MG PO (08:35)
[2024-07-31] MEDS: LIORESAL 10 MG PO (08:35)
[2024-07-31] MEDS: PROTONIX 40 MG PO (08:35)
[2024-07-31] MEDS: MIRALAX PO ×2 (08:36→08:40)
[2024-07-31] MEDS: COLACE PO ×2 (08:36→08:39)
--- NOTE | 2024-07-31 08:50 | PN.CDI ---
CDI
- -
CDI:
Physician Documentation Request
Admit Date: 07/24/24 17:48
Dear Doctor Do,
Clinical Indicators:
Patient admitted with acute change in mental status, suspected TME.
07/26 Cardiology PN, 'Abnormal troponin in the setting of acute mental status change, electrolyte abnormality'
07/29 PN, 'Rhabdomyolysis Received intravenous fluids-Improved'
07/30 PN, ' Abnormal troponins-patient without chest pain. EKG without any acute ST-T changes.
Troponin trend:
07/24/24 07/24/24 07/25/24
11: 20:19 03:45
Troponin I 0.112 H* 0.077 H* 0.063 H*
07/25/24
12:
Troponin I 0.037 H*
Based on the above, could you clarify in the progress notes, the appropriate diagnosis, if significant, that supports the above abnormalities and additional evaluation, monitoring and/or treatment rendered:
Non ischemic myocardial injury
Troponin elevation only
Other
Use of terms such as suspected, likely, concern for, or probable (associated with a specific diagnosis that is being evaluated, monitored, or treated as if it exists) are acceptable and can be coded in the inpatient setting, when documented at the
time of discharge.
Thank you,
Gabriela Kahn RN BSN
CDI Specialist
available via tiger text
Please use your independent medical judgment in providing your response.
--- NOTE | 2024-07-31 08:54 | W.PN.HOSP.TC ---
Today's Communication/Plan
-
Discharge to short-term rehab today
Assessment / Plan
Assessment / Plan
Assessment/Plan
Acute change in mental status-suspected Toxic Metabolic Encephalopathy
Opioid Use
Trouble Finding Words -- subacute to chronic in nature
Possible Seizure with Stool Urgency/Incontinence reported prior to arrival with hallucinations and trouble finding words at times
-Patient reports doing better than when she came in but still not doing great
-CT head negative for acute findings. Non focal grossly.
-MRI Brain also without acute findings
-Consulted neurology given patient's complaints of trouble finding words, appreciate their evaluation and recommendations: no evidence at this time of seizure, stroke,
or primary neurological issue
-Chest x-ray showed no evidence of acute pathology.
-Urinalysis raises concern for contamination, patient initially denied any urinary symptoms and urine culture is negative. Doubt UTI. No indication for antibiotics currently.
-Blood cultures negative
-Rechecked urinalysis: completely unremarkable
-VBG noted. Hold her buccal buprenorphine. Continue with oxycodone as needed for breakthrough pain. Continue on laxatives.
Rhabdomyolysis
-Received intravenous fluids
-Resolved
Occult Blood and RBCs in the Urine
Urinary Retention (as per patient report)
-Bladder Scans protocol
-Rechecked urinalysis: completely unremarkable
-Urology follow-up on discharge
Abdominal Pain and Stool Urgency
Diverticulosis
Mild distention of the endometrium
-Consulted GI, appreciate their evaluation and recommendations: no inpatient work-up, follow-up appointment with Dr. Maki August 02 at 8 AM for follow-up
Esophageal dysphagia
-VSE on 07/30 within normal limits, recommend GI follow-up as above
Leukocytosis with low grade fever - RESOLVED - no obvious foci apart from mild LFT abnormalities. CT A/P neg . Procal was negative. Blood cultures were negative so far. Hold abx and follow. Lower extremity ultrasound negative for DVT, CT Chest
showed no PE
Nonischemic myocardial injury troponin elevation�patient without chest pain. EKG without any acute ST-T changes. Consult cardiology: per cardiology echo normal, QT only mildly increase would replete potassium and magnesium as needed.
Prolonged QTc-repeat. Follow on telemetry.
Chronic pain syndrome on chronic home narcotics. Hold buccal buprenorphine. Use as needed oxycodone as before. She is also on baclofen which can be continued.
Depression-continue with home medication
Code Status: Full code
Physical Exam
General: Not in acute distress
HEENT: Moist Mucous Membranes
Respiratory: Clear to Auscultation Bilaterally
Cardiac: Regular Rhythm and S1/S2
GI: Soft, Nondistended, Normal Bowel Sounds and Mildly Tender (in epigastric area)
Neuro: AAO x 3 and No Motor Deficits/Nonfocal exam and grossly intact
Psych: Calm
Anticipated Discharge: Today
Subjective/Interval History
-
Date of Service: July 31, 2024
Patient feels fatigued after taking a shower. She has chronic pain, and it is difficult for her. No fever, no vomiting.
Objective Data
-
Vital Signs:
Vital Signs
Temp Pulse Resp BP Pulse Ox
97.9 F 57 19 102/64 94
07/31/24 07:00 07/31/24 07:00 07/31/24 07:00 07/31/24 07:00 07/31/24 07:00
I&O
07/30/24 07/31/24 08/01/24
06:59 06:59 06:59
Intake Total 1420 / 1420 1200 / 1200
Output Total 500 / 500
Balance 920 / 920 1200 / 1200
--- NOTE | 2024-07-31 09:55 | CM ---
Addendum entered by Maribell Masters 07/31/24 10:39:
Patient seen bedside, discussed auth approved, transport scheduled for 12:45 p.m.
[facility]:
Report: [phone]

Original Note:
Auth submitted through [employer] for [facility], CM placed call to check status ([facility] [phone]), spoke with Zaynab Osorio auth approved auth # [id number], approved 07/31-08/06, fax updates to . Auth information provided to
Jocy Pascual at [facility]. Patient will require transport. CM will continue to follow for all discharge planning needs.
Plan; [facility] SNF, will require transport.
== END 2024-07-31 13:16 | DRG 92 ==
LOC: 4 WEST ACU 17:48
PROVIDERS: Hospitalist; Nurse Practitioner; Physician Assistant; ADMITTING PHYSICIAN Internal Medicine; ATTENDING PHYSICIAN Family Medicine; CONSULT PHYSICIAN Internal Medicine Cardiovascular Disease; CONSULT PHYSICIAN Internal Medicine Gastroenterology; CONSULT PHYSICIAN Psychiatry & Neurology Neurology; EMERGENCY PHYSICIAN Student in an Organized Health Care Education/Training Program
DX: G92.8 Other toxic encephalopathy (principal); I5A Non-ischemic myocardial injury (non-traumatic); M62.82 Rhabdomyolysis; Z11.52 Encounter for screening for COVID-19; G89.4 Chronic pain syndrome; F32.A Depression, unspecified; F41.9 Anxiety disorder, unspecified; F11.90 Opioid use, unspecified, uncomplicated
CPT/HCPCS: 70450; 70551; 71046; 71275; 74177; 74230; 80048; 80053; 80143; 80179; 80306; 80307; 81003; 81015; 82077; 82550; 82607; 82728; 82746; 82805; 82962; 83605; 83690; 83735; 84145; 84439; 84443; 84484; 85025; 85027; 85610; 85730; 86041; 87040; 87086; 87502; 87811; 92610; 92611; 93005; 93306; 93970; 96365; 96366; 97110; 97163; 97167; 97530; 97535; 99285; Q9967

== ENCOUNTER → 2024-08-03 10:58 | Outpatient (REF) | payer BC, MEDICARE, SELFPAY ==
[2024-08-03 13:51] LABS: % Basophils 1.2 % (0-2); % Immature Granulocytes 0.3 % (0-0.5); % Lymphocytes 49.3 % (20.5-51.1); % Monocytes 10.1 % (1.7-9.3); % Neutrophils 37.1 % (42.2-75.2); Absolute Basophils 0.1 10^3/uL (0-0.2); Absolute Eosinophils 0.1 10^3/uL (0-0.7); Absolute Lymphocytes 3.2 10^3/uL (1.2-3.4); Absolute Monocytes 0.7 10^3/uL (0.1-0.6); Absolute Neutrophils 2.4 10^3/uL (1.4-6.5); Hematocrit 40.2 % (37.0-47.0); Hemoglobin 13.1 g/dL (12.0-16.0); Mean Corp Hgb Conc. 32.6 g/dL (33.0-37.0); Mean Corpuscular Hgb 29.4 pg (27.0-31.0); Mean Corpuscular Volume 90.3 fL (81.0-99.0); Mean Platelet Volume 10.9 fL (7.4-10.4); Nucleated Red Blood Cells % 0 %; Platelet Count 265 10^3/uL (130-400); Red Blood Cell Count 4.45 10^6/uL (4.20-5.40); Red Cell Dist. Width 13.3 % (11.5-14.5); White Blood Cell Count 6.5 10^3/uL (4.8-10.8)
[2024-08-03 16:13] LABS: Blood Urea Nitrogen 15 mg/dl (7-17); Calcium 8.5 mg/dl (8.4-10.2); Carbon Dioxide 24 mmol/L (22-30); Chloride 105 mmol/L (98-107); Glucose 82 mg/dl (70-99); Potassium 4.3 mmol/L (3.5-5.1); Sodium 139 mmol/L (135-145); eGFR > 60.00
== END ==
LOC: OLABP 10:58
PROVIDERS: ATTENDING PHYSICIAN Family Medicine
DX: I11.0 Hypertensive heart disease with heart failure (principal); E03.9 Hypothyroidism, unspecified; R41.82 Altered mental status, unspecified; G92.8 Other toxic encephalopathy; M62.82 Rhabdomyolysis; E87.6 Hypokalemia; R41.9 Unspecified symptoms and signs involving cognitive functions and awareness
CPT/HCPCS: 36415; 80048; 85025

== ENCOUNTER → 2024-08-09 11:10 | Outpatient (REF) | payer BC, MEDICARE, SELFPAY ==
[2024-08-09 12:05] LABS: % Basophils 1.1 % (0-2); % Eosinophils 2.6 % (0-6); % Lymphocytes 56.7 % (20.5-51.1); % Monocytes 8.6 % (1.7-9.3); Absolute Basophils 0.1 10^3/uL (0-0.2); Absolute Eosinophils 0.1 10^3/uL (0-0.7); Absolute Monocytes 0.5 10^3/uL (0.1-0.6); Absolute Neutrophils 1.7 10^3/uL (1.4-6.5); Hematocrit 38.2 % (37.0-47.0); Hemoglobin 12.3 g/dL (12.0-16.0); Mean Corp Hgb Conc. 32.2 g/dL (33.0-37.0); Mean Corpuscular Hgb 29.6 pg (27.0-31.0); Mean Corpuscular Volume 91.8 fL (81.0-99.0); Mean Platelet Volume 11.1 fL (7.4-10.4); Nucleated Red Blood Cells % 0 %; Platelet Count 222 10^3/uL (130-400); Red Blood Cell Count 4.16 10^6/uL (4.20-5.40); Red Cell Dist. Width 13.4 % (11.5-14.5); White Blood Cell Count 5.3 10^3/uL (4.8-10.8)
[2024-08-09 12:10] LABS: Blood Urea Nitrogen 30 mg/dl (7-17); Calcium 8.5 mg/dl (8.4-10.2); Carbon Dioxide 28 mmol/L (22-30); Chloride 104 mmol/L (98-107); Glucose 89 mg/dl (70-99); Sodium 140 mmol/L (135-145); eGFR > 60.00
== END ==
LOC: OLABP 11:10
PROVIDERS: ATTENDING PHYSICIAN Family Medicine
DX: I11.0 Hypertensive heart disease with heart failure (principal); E03.9 Hypothyroidism, unspecified; R41.82 Altered mental status, unspecified; G92.8 Other toxic encephalopathy; M62.82 Rhabdomyolysis; E87.6 Hypokalemia; R41.9 Unspecified symptoms and signs involving cognitive functions and awareness; I10 Essential (primary) hypertension
CPT/HCPCS: 36415; 80048; 85025

== ENCOUNTER → 2024-08-25 11:16 | Outpatient (REF) | payer BC, SELFPAY | LOC: RAD 11:16 | PROVIDERS: ATTENDING PHYSICIAN Student in an Organized Health Care Education/Training Program; FAMILY PHYSICIAN Family Medicine | DX: M25.511 Pain in right shoulder (principal) | CPT/HCPCS: 73200 ==

== ENCOUNTER → 2024-08-27 10:04 | Outpatient (REF) | payer BC, SELFPAY | LOC: RCS 10:04 | PROVIDERS: ATTENDING PHYSICIAN Internal Medicine Cardiovascular Disease; FAMILY PHYSICIAN Physician Assistant | DX: R79.89 Other specified abnormal findings of blood chemistry (principal); Z01.818 Encounter for other preprocedural examination; I10 Essential (primary) hypertension | CPT/HCPCS: 93017; 93350 ==

== ENCOUNTER → 2024-09-14 10:08 | Outpatient (REF) | payer BC, SELFPAY ==
[2024-09-14 10:38] LABS: % Basophils 1.3 % (0-2); % Eosinophils 3.5 % (0-6); % Immature Granulocytes 0.1 % (0-0.5); % Lymphocytes 40.1 % (20.5-51.1); % Monocytes 11.5 % (1.7-9.3); % Neutrophils 43.5 % (42.2-75.2); Absolute Basophils 0.1 10^3/uL (0-0.2); Absolute Eosinophils 0.3 10^3/uL (0-0.7); Absolute Monocytes 0.9 10^3/uL (0.1-0.6); Absolute Neutrophils 3.3 10^3/uL (1.4-6.5); Hematocrit 35.3 % (37.0-47.0); Hemoglobin 11.1 g/dL (12.0-16.0); Mean Corp Hgb Conc. 31.4 g/dL (33.0-37.0); Mean Corpuscular Hgb 28.9 pg (27.0-31.0); Mean Corpuscular Volume 91.9 fL (81.0-99.0); Mean Platelet Volume 10.4 fL (7.4-10.4); Nucleated Red Blood Cells % 0 %; Platelet Count 250 10^3/uL (130-400); Red Blood Cell Count 3.84 10^6/uL (4.20-5.40); Red Cell Dist. Width 13.5 % (11.5-14.5); White Blood Cell Count 7.5 10^3/uL (4.8-10.8)
[2024-09-14 10:47] LABS: Blood Urea Nitrogen 25 mg/dl (7-17); Calcium 8.5 mg/dl (8.4-10.2); Carbon Dioxide 26 mmol/L (22-30); Chloride 105 mmol/L (98-107); Glucose 80 mg/dl (70-99); Potassium 4.3 mmol/L (3.5-5.1); Sodium 137 mmol/L (135-145); eGFR > 60.00
== END ==
LOC: OLABP 10:08
PROVIDERS: ATTENDING PHYSICIAN Family Medicine
DX: I11.0 Hypertensive heart disease with heart failure (principal); E03.9 Hypothyroidism, unspecified; R41.82 Altered mental status, unspecified; G92.8 Other toxic encephalopathy; M62.82 Rhabdomyolysis; E87.6 Hypokalemia; R41.9 Unspecified symptoms and signs involving cognitive functions and awareness; I10 Essential (primary) hypertension
CPT/HCPCS: 36415; 80048; 85025

== ENCOUNTER → 2024-10-18 13:42 | Outpatient (REF) | payer BC, SELFPAY | LOC: HWRAD 13:42 | PROVIDERS: ATTENDING PHYSICIAN Orthopaedic Surgery Hand Surgery; FAMILY PHYSICIAN Family Medicine | DX: M25.512 Pain in left shoulder (principal) | CPT/HCPCS: 73200 ==

== ENCOUNTER 2024-10-27 17:41 | Emergency (ER) | payer BC, SELFPAY ==
[2024-10-27 17:49] VITALS: BP 157/89
--- NOTE | 2024-10-27 18:27 | ED.MUSCINJ ---
HPI-Injury
General
Chief Complaint: Fall
Source: patient
Exam Limitations: none
Time Seen by Provider: 10/27/24 18:10
Nursing documentation reviewed up to this point in time: agreed with
History of Present Illness-Injury
Is this injury a work related problem?: No
Is pt an associate of [facility]?: No
Initial Injury comments:
Patient states she rolled out of bed onto floor. Hit back of head 'slightly'. No LOC. COmplains of pain to right hip and low back. Injury occurred just [employer] SCI[employer]ITIONER
Past History
Past History
ED Past Medical History: Asthma, HTN, Hypothyroidism, Psychiatric (Anxiety, Depression, PTSD, ) and Other (Spinal fracture,chronic back pain, kidney stones. PNA, C-dif, UTI, Renal calculus, Ovarian cyst)
ED Past Surgical History: Appendectomy, Orthopedic (Neck fusion, Right shoulder surgery, Sven knee replacements, ), Urological (renal stent, ) and Other (Ovarian cyst)
Patient has exhibited threatening behavior?: No
PSI?: No
Social History
Tobacco: Non-smoker
Alcohol: None
Drug: None
Personal:
Living: alone
Employment: Employed
Family History
Family History: Other (Noncontributory)
Review of Systems
Review of Systems
Allergies reviewed?: Yes
All Other Systems: ROS reviewed and negative except as documented in HPI and ROS
Constitutional: Reports no symptoms
EENT: Reports no symptoms
Respiratory: Reports no symptoms
Cardiac: Reports no symptoms
ABD/GI: Reports no symptoms
Musculoskeletal: Reports joint pain (pain to right shoulder, low back, right hip)
Skin: Reports no symptoms
Neurological: Reports no symptoms
Psychiatric: Reports no symptoms
Musculoskeletal Injury Exam
Musculoskeletal Injury Exam
Bilateral Lower Back:
Pain with Movement?: Moderate
Tender to palpation?: Moderate
Soft tissue swelling?: None
External deformity and angulation?: None
Joint effusion?: None
Contusion?: Moderate
Hematoma-local bleeding into tissue?: None
Strain- Sprain- Tear (Connective tissue injury)?: Moderate
Crepitus with movement?: No
Joint instability?: No
Malalignment/deformity?: No
Range of motion: Limited
Distal skin color and temperature: normal-warm & good color
Capillary Refill: normal
Normal distal neurovascular exam?: Yes
Right Shoulder:
Pain with Movement?: Mild
Tender to palpation?: Mild
Soft tissue swelling?: None
Joint effusion?: None
Contusion?: Moderate
Hematoma-local bleeding into tissue?: None
Strain- Sprain- Tear (Connective tissue injury)?: None
Crepitus with movement?: No
Joint instability?: No
Malalignment/deformity?: No
Range of motion: Limited
Distal skin color and temperature: normal-warm & good color
Capillary Refill: normal
Normal distal neurovascular exam?: Yes
Peripheral Pulses: radial (right): 3+
Right Hip:
Pain with Movement?: Moderate
Tender to palpation?: Moderate
Soft tissue swelling?: None
External deformity and angulation?: None
Joint effusion?: None
Contusion?: Moderate
Hematoma-local bleeding into tissue?: None
Strain- Sprain- Tear (Connective tissue injury)?: Moderate
Crepitus with movement?: No
Joint instability?: No
Malalignment/deformity?: No
Range of motion: Limited
Distal skin color and temperature: normal-warm & good color
Capillary Refill: normal
Normal distal neurovascular exam?: Yes
Phy Exam
General Physical Exam
General Presentation: well appearing and moderate distress
General age: appears stated age
General Skin: warm and dry
General Habitus: normal
General Mental: alert
General Hydration: appears well hydrated
Neurological Exam
Neurological Exam: alert, oriented x3 and CN II-XII intact
Musculoskeletal Exam
Musculoskeletal Exam: neuro vasc intact
Skin Exam
Skin Exam: normal color, warm/dry and no rash
Psychiatric Exam
Psychiatric Exam: normal mood/affect
Injury Course
Orders/Labs/Results
Orders:
Orders
10/27/24 18:19
HYDROmorphone [Dilaudid] 0.5 mg IV NOW STA
Ondansetron Injectable [Zofran] 4 mg IV NOW STA
Hip, Right 2-3 Views [CR Hip - RT w/wo Pel 2-3 Vw*] Urgent
Comment:
Reason For Exam: fall
Include a pelvis x-ray?: Yes
Lumbar Spine Complete, 4 View [CR Lumbar Spine Comp Min 4 Vw*] Urgent
Comment:
Reason For Exam: fall
10/27/24 18:31
Shoulder, Right, Trauma [CR Shoulder, Trauma - Right] Urgent
Comment:
Reason For Exam: fall
10/27/24 19:[address] [CT Pelvis W/o Iv Contrast] Urgent
Comment:
Reason For Exam: concern for right hip fx.
10/27/24 20:12
HYDROmorphone [Dilaudid] 0.5 mg IV NOW STA
10/27/24 23:59
HYDROmorphone [Dilaudid] 0.5 mg .ROUTE .STK-MED ONE
HYDROmorphone [Dilaudid] 1 mg IV NOW STA
*Radiology
Radiology exam reviewed: radiology read reviewed
*Pulse Oximetry
Patient hypoxic: no
*Critical Care Note
Total Time (30-74mins, 75-104mins- exclusive of procedures): Not Applicable
Update Note
Update Note:
Patient to ED s/p fall OOB. COmplains of pain to her right shoulder (S/P shoulder replacement), low back pain (chronic pain, hx of lumbar compressionn) and right hip pain. Xrays reviewed, could not definitively r/o hip fx. Sent for CT which
revealed nondisplaced subtle inferior pubic ramis fx. She is residing at [facility]. I spoke with supervisor pit and auxiliaries and is agreeale to transfer back to [place]. Patient is able to stand, transfer, ambulate short distances with assistance. Pain meds provided
in ED. Will increase her current oxycodone to q4 hours and she will follow up with pain management next week as scheduled. SHe will also follow up with ortho in 2 weeks as scheduled.
ED Attending Note
-
Portions of this chart may have been created with voice recognition software.� Occasional wrong word or��sound alike� substitutions may have occurred due to the inherent limitations of voice recognition software.
Discharge Plan
Departure
Patient Disposition: Home (Routine Discharge)
Date of Disposition: 10/27/24
Time of Disposition: 21:47
Patient with high blood pressure during this ER visit?: No
Condition: Good
Covid-19: Not Applicable
Discharge Problem:
Chronic pain, Fractured pelvis, Compression fracture
Instructions: Vertebral compression fracture, Pelvic fracture, Preventing falls in adults
Prescriptions:
No Action
loratadine 10 MG tablet
10 mg PO DAILY
hydroxyzine HCl 50 mg Tablet
50 mg PO HS
omeprazole 40 mg Capsule,Delayed Release(Dr/Ec)
40 mg PO BID
levothyroxine [Synthroid] 100 mcg Tablet
100 mcg PO DAILY
baclofen 10 mg Tablet
10 mg PO BID
hydroxyzine HCl 25 mg Tablet
25 mg PO DAILY
dicyclomine 10 mg Capsule
10 mg PO QIDPRN PRN (Reason: spasms)
escitalopram oxalate [Lexapro] 20 mg Tablet
20 mg PO DAILY
hydrochlorothiazide 12.5 mg Tablet
12.5 mg PO DAILY
desvenlafaxine succinate 50 mg Tablet Extended Release 24 Hr
50 mg PO DAILY
famotidine [Pepcid] 40 mg Tablet
40 mg PO BID
polyethylene glycol 3350 17 gram Powder In Packet
17 g PO DAILY Qty: 30 0RF
oxycodone 10 mg Tablet
10 mg PO Q6HPRN PRN (Reason: severe pains) 1 Days Qty: 4 0RF
Referrals:
Betty Lora CRNP [Family Provider] -
Interventions
Interventions:
*Risk Screen - Suicide Last Done: 10/27/24 17:49
*General Assessment Last Done: 10/27/24 17:49
*Neglect/Abuse Screening Last Done: 10/27/24 17:49
ED- Fall Risk Assessment Last Done: 10/28/24 00:16
*ED COVID-19 Vaccine History Last Done: 10/27/24 17:49
*Nursing Disposition Last Done: 10/28/24 00:15
ED-Musculoskeletal Assessment Last Done: 10/27/24 17:50
ED- Neurological Assessment Last Done: 10/27/24 17:50
ED-Skin Assessment Last Done: 10/27/24 17:50
Discharge Date and Time
Discharge Date/Time: 10/28/24 00:17
Print Language: MACANESE
[2024-10-27] MEDS: ZOFRAN 4 MG IV (18:39)
[2024-10-27] MEDS: DILAUDID 0.5 MG IV ×2 (18:39→20:15)
[2024-10-27 21:36] VITALS: BP 165/79
[2024-10-27 23:48] VITALS: BP 163/91
[2024-10-28] MEDS: DILAUDID 1 MG IV (00:07)
== END 2024-10-28 00:17 ==
LOC: EMR 17:41
PROVIDERS: EMERGENCY PHYSICIAN Student in an Organized Health Care Education/Training Program; FAMILY PHYSICIAN Nurse Practitioner Family
DX: S32.591A Other specified fracture of right pubis, initial encounter for closed fracture (principal); S32.018A Other fracture of first lumbar vertebra, initial encounter for closed fracture; W06.XXXA Fall from bed, initial encounter; G89.29 Other chronic pain; E03.9 Hypothyroidism, unspecified; I10 Essential (primary) hypertension; J45.909 Unspecified asthma, uncomplicated; Z96.611 Presence of right artificial shoulder joint; Z96.653 Presence of artificial knee joint, bilateral; Z87.440 Personal history of urinary (tract) infections; Z87.442 Personal history of urinary calculi; Z90.49 Acquired absence of other specified parts of digestive tract
CPT/HCPCS: 99284; 96374; 96375; 96376; 72110; 72192; 73030; 73502

== ENCOUNTER 2024-11-16 10:12 | Inpatient (IN) | payer BC, MEDICARE, SELFPAY ==
[2024-11-03 19:58] VITALS: BP 109/76
[2024-11-03 20:00] VITALS: BP 117/67
[2024-11-03 20:02] VITALS: BP 117/67
[2024-11-03 20:08] VITALS: BMI 29.3
[2024-11-03 20:15] LABS: % Basophils 0.8 % (0-2); % Eosinophils 1.6 % (0-6); % Immature Granulocytes 0.3 % (0-0.5); % Lymphocytes 24.3 % (20.5-51.1); % Monocytes 11.5 % (1.7-9.3); % Neutrophils 61.5 % (42.2-75.2); Absolute Basophils 0.1 10^3/uL (0-0.2); Absolute Eosinophils 0.2 10^3/uL (0-0.7); Absolute Lymphocytes 2.4 10^3/uL (1.2-3.4); Absolute Monocytes 1.2 10^3/uL (0.1-0.6); Absolute Neutrophils 6.1 10^3/uL (1.4-6.5); Hematocrit 40.8 % (37.0-47.0); Mean Corp Hgb Conc. 34.3 g/dL (33.0-37.0); Mean Corpuscular Hgb 28.9 pg (27.0-31.0); Mean Corpuscular Volume 84.3 fL (81.0-99.0); Mean Platelet Volume 9.6 fL (7.4-10.4); Nucleated Red Blood Cells % 0 %; Platelet Count 281 10^3/uL (130-400); Red Blood Cell Count 4.84 10^6/uL (4.20-5.40); Red Cell Dist. Width 11.9 % (11.5-14.5)
[2024-11-03 20:32] LABS: ALT (SGPT) 14 U/L (0-35); AST (SGOT) 22 U/L (14-36); Albumin 4.2 g/dl (3.5-5.0); Alkaline Phosphatase 87 U/L (38-126); Blood Urea Nitrogen 16 mg/dl (7-17); Calcium 9.5 mg/dl (8.4-10.2); Carbon Dioxide 26 mmol/L (22-30); Chloride 97 mmol/L (98-107); Estimated Creatinine Clearance 71 ml/min; Glucose 130 mg/dl (70-99); Potassium 3.1 mmol/L (3.5-5.1); Sodium 134 mmol/L (135-145); Total Bilirubin 0.7 mg/dl (0.2-1.3); Total Protein 7.2 g/dl (6.3-8.2); eGFR > 60.00
[2024-11-03 21:02] VITALS: BP 139/77
[2024-11-03 21:04] LABS: Urine Albumin 1+ (Neg - Trace); Urine Bilirubin Negative (Negative); Urine Character Slightly Cloudy (Clear); Urine Color Yellow; Urine Glucose Negative (Negative); Urine Ketone Negative (Negative); Urine Leukocyte 3+ (Negative); Urine Nitrite Negative (Negative); Urine Occult Blood Negative (Negative); Urine Specific Gravity 1.005 (<1.030); Urine Urobilinogen 1+ (Neg - 1+)
[2024-11-03 21:10] LABS: Urine Squamous Cell 0-2 /LPF (Few)
[2024-11-03 21:11] LABS: Urine Bacteria Few (Negative)
[2024-11-03 21:12] LABS: Urine Red Blood Cell 0-2 /HPF (0-2); Urine White Cell 26-30 /HPF (0-5)
[2024-11-03 21:15] LABS: Amphetamines Negative (Negative); Barbiturates Negative (Negative); Benzodiazepines Negative (Negative); Buprenorphine Positive (Negative); Cocaine Negative (Negative); Marijuana Negative (Negative); Methadone Negative (Negative); Methamphetamines Negative (Negative); Opiates Negative (Negative); Phencyclidine Negative (Negative); Tricyclic Antidepressants Negative (Negative)
--- NOTE | 2024-11-03 21:19 | ED.GENMED ---
History of Present Illness
General
Chief Complaint: Change in Mental Status
Time Seen by Provider: 11/03/24 20:03
History of Present Illness
History of Present Illness:
69-year-old female presenting with altered mental status. Per nursing staff at facility, patient has been more confused over the past few days. Patient started having hallucinations where she was seen teenagers in her room, took pictures and
showed to nursing staff who states pictures were just clothes. Patient states that this evening when going to bed, she heard a noise in a closet and investigated. Patient states that she found teenagers in the room. Patient states that one of the
teenagers had a gun. Patient states that she went to go notify nursing staff who then called EMS for further evaluation. Patient denies any complaints including no fever, no chills, no chest pain, no shortness of breath, no cough, no urinary
symptoms.
Past History
Past History
ED Past Medical History: Asthma, HTN, Hypothyroidism, Psychiatric (Anxiety, Depression, PTSD, ) and Other (Spinal fracture,chronic back pain, kidney stones. PNA, C-dif, UTI, Renal calculus, Ovarian cyst)
ED Past Surgical History: Appendectomy, Orthopedic (Neck fusion, Right shoulder surgery, Sven knee replacements, ), Urological (renal stent, ) and Other (Ovarian cyst)
Patient has exhibited threatening behavior?: No
PSI?: No
Social History
Tobacco: Non-smoker
Alcohol: None
Drug: None
Personal:
Living: alone
Employment: Employed
Family History
Family History: Other (Noncontributory)
Phy Exam
Physical Exam
Physical Exam:
General: Alert, no acute distress
Head: NCAT
Eyes: clear conjunctiva
Neck: supple
Cardiac: regular rate and rhythm, no murmur
Lungs: clear to auscultation bilaterally. No wheezes, rales, or rhonchi. Speaking full unlabored sentences. No respiratory distress.
Abdomen: soft, nondistended nontender. No rebound or guarding.
MSK: no lower extremity edema bilaterally. No deformity
Skin: warm, dry
Neuro: Alert and oriented to person place year, does not know month or day. no focal deficits
Psych: pressured tangential speech. no active hallucinations at this time
Course
Orders/Labs/Results
Orders:
Orders
11/03/24 20:03
Complete Blood Count/With Diff Urgent
Comprehensive Metabolic Panel Urgent
11/03/24 20:55
CT Head W/o Iv Contrast Urgent
Comment:
Reason For Exam: hallucinations, change in mental status
Fentanyl, Urine Urgent
Urinalysis Reflex To Culture Urgent
Date Specimen was Collected: 11/03/24
Time Specimen was Collected: 20:01
Urine Drug Abuse Screen Urgent
Date Specimen was Collected: 11/03/24
Time Specimen was Collected: 20:01
Urine Microscopic Reflex Cult Urgent
Urine Culture Urgent
TIFFANY Source: U
Specimen Description:
Date Specimen was Collected: 11/03/24
Time Specimen was Collected: 20:01
11/03/24 23:31
CefTRIAXone [Rocephin] 1,000 mg IV NOW STA
11/03/24 23:36
Potassium Chloride [KCl] 40 meq PO NOW STA
Abnormal Lab Results
11/03/24 11/03/24
20:03 20:55
Absolute Monos (auto) 1.2 H 10^3/uL
(0.1-0.6)
Monocytes % 11.5 H %
(1.7-9.3)
Sodium 134 L mmol/L
(135-145)
Potassium 3.1 L mmol/L
(3.5-5.1)
Chloride 97 L mmol/L
(98-107)
Glucose 130 H mg/dl
(70-99)
Leukocyte Esterase Rfl 3+ A
(Negative)
Urine WBC (Reflex) 26-30 A /HPF
(0-5)
Urine Bacteria (Reflex) Few A
(Negative)
Urine Albumin (Reflex) 1+ A
(Neg - Trace)
Ur Buprenorphine Positive H
(Negative)
Ur Oxycodone Screen Positive H
(Negative)
11/03/24 20:03
11/03/24 20:03
Vital Signs
Initial and Last Documented VS:
Initial Vital Signs
Temp Pulse Resp Pulse Ox
97.9 F 82 18 99
11/03/24 19:52 11/03/24 19:52 11/03/24 19:52 11/03/24 19:52
Last Documented Vital Signs
Temp Pulse Resp BP Pulse Ox
97.9 F 72 40 130/70 98
11/03/24 19:52 11/03/24 22:15 11/03/24 22:15 11/03/24 22:00 11/03/24 22:15
MDM/Problems Addressed
Differential Diagnosis Includes:
UTI, ROBERTO, electrolyte abnormality, intracranial hemorrhage
MDM/Problems Addressed:
Results reviewed. WBC 10. Potassium 3.1. Electrolytes and creatinine otherwise within normal limits. UA consistent with UTI. UDS positive for buprenorphine and oxycodone. CT head unremarkable. Suspect hallucinations/encephalopathy secondary
to UTI. Ordered ceftriaxone. Discussed with hospitalist for admission
*Critical Care Note
Total Time (30-74mins, 75-104mins- exclusive of procedures): Not Applicable
ED Attending Note
-
Portions of this chart may have been created with voice recognition software.� Occasional wrong word or��sound alike� substitutions may have occurred due to the inherent limitations of voice recognition software.
Discharge Plan
Departure
Patient Disposition: Admit
Date of Disposition: 11/03/24
Time of Disposition: 23:53
Presentation/result/management discussed w/ accepting MD/DO: Hospitalist
Discharge Problem:
Acute UTI, Hallucination, visual
Prescriptions:
No Action
loratadine 10 MG tablet
10 mg PO DAILY
hydroxyzine HCl 50 mg Tablet
50 mg PO HS
omeprazole 40 mg Capsule,Delayed Release(Dr/Ec)
40 mg PO BID
levothyroxine [Synthroid] 100 mcg Tablet
100 mcg PO DAILY
baclofen 10 mg Tablet
10 mg PO Q8H PRN (Reason: Pain)
hydroxyzine HCl 25 mg Tablet
25 mg PO DAILY
escitalopram oxalate [Lexapro] 20 mg Tablet
20 mg PO DAILY
hydrochlorothiazide 12.5 mg Tablet
12.5 mg PO DAILY
desvenlafaxine succinate 50 mg Tablet Extended Release 24 Hr
50 mg PO DAILY
famotidine [Pepcid] 40 mg Tablet
40 mg PO BID
polyethylene glycol 3350 17 gram Powder In Packet
17 g PO DAILY Qty: 30 0RF
oxycodone 10 mg tablet
10 mg PO Q6H
Referrals:
Betty Lora CRNP [Family Provider] -
Interventions
Interventions:
*Risk Screen - Suicide Last Done: 11/03/24 19:52
*General Assessment Last Done: 11/03/24 19:52
*Neglect/Abuse Screening Last Done: 11/03/24 19:52
*ED COVID-19 Vaccine History Last Done: 11/03/24 19:52
ED- Pulmonary Assessment Last Done: 11/03/24 20:08
ED- Neurological Assessment Last Done: 11/03/24 20:08
ED- Cardiac Assessment Last Done: 11/03/24 20:08
Discharge Date and Time
Print Language: SINHALA
[2024-11-03 21:32] LABS: Fentanyl, Urine Negative (Negative)
[2024-11-03 22:00] VITALS: BP 130/70
[2024-11-03 23:00] VITALS: BP 126/73
[2024-11-03] MEDS: ROCEPHIN 1000 MG IV (23:55)
[2024-11-03] MEDS: KCL 40 MEQ PO (23:55)
[2024-11-04] VITALS (10 sets, daily range): BP systolic 115–136; BP diastolic 59–85; PULSE 63–65; O2SAT 96–97; BMI 28.4
--- NOTE | 2024-11-04 00:08 | HPS.HSE ---
Family Physician
-
Family Physician: Betty Lora
Chief Complaint
-
Hallucinations
History of Present Illness
Patient is a 69y F with PMH significant for chronic pain / chronic opioid dependence, hypothyroidism and anxiety / depression who presents to ED for evaluation of hallucinations/ change in mental status. History per [facility] indicates that patient
noted 'seeing teenagers in my room' and noted that one of them had a gun. She showed staff pictures she had taken on her phone - which showed only her empty closet / room. EMS was called and patient sent to the ED for evaluation.
At the time of my examination, patient has tangential speech and flight of ideas. She notes that she 'does not feel well'. She states she had a fever this AM and is 'getting over something'. She said something about a Playstation that I could not
comprehend. She denies any specific complaints at present when directly asked in ROS. She cannot describe the events of this evening that led to her presentation.
Note: patient was seen in this ED on 10/31 following a fall at the [facility]. She was diagnosed with pelvic fracture at that time (inferior pubic ramus) and her oxycodone was changed from PRN to q6h standing dose.
Her Baclofen was also changed to TID (from BID). She is also noted to be on scopolamine patch - unclear when this was started.
Medical History
Past Medical History
Past Medical History: Reports Other
Additional Past Medical History:
Hypothyroidism
Nephrolithiasis
Anxiety / Depression
IBS with Alternating Constipation / Diarrhea
Chronic Pain Syndrome
Chronic Opioid Dependence
GERD
Past Surgical History: Reports Other
Additional Past Surgical History:
Bilateral TKA
Shoulder Arthroplasty
Back Surgery
Lithotripsy
Social History
Tobacco: Non-smoker
Alcohol: Former
Family History
Family History: Unable to Obtain
Allergies / Home Medications
Allergies reflects when Allergies were last updated in [employer].
Home Medications with original date entered in [employer]
Allergy/Medication List:
Allergies
Allergy/AdvReac Type Severity Reaction Status Date / Time
NSAIDS (Non-Steroidal Allergy Has early Verified 11/03/24 19:51
Anti-Inflamma kidney
[Nsaids] insufficiency
Penicillins Allergy Swelling Verified 11/03/24 19:51
pollen extracts Allergy EYES Verified 11/03/24 19:51
WATER,
SNEEZING
Home Medications
loratadine 10 mg tablet 10 mg PO DAILY Allergies 01/15/19
baclofen 10 mg tablet 10 mg PO Q8H PRN Pain 07/24/24
desvenlafaxine succinate 50 mg tablet,extended release 24 hr 50 mg PO DAILY Depression 07/24/24
escitalopram oxalate 20 mg tablet (Lexapro) 20 mg PO DAILY Depression 07/24/24
hydrochlorothiazide 12.5 mg tablet 12.5 mg PO DAILY KIDNEY STONES 07/24/24
hydroxyzine HCl 25 mg tablet 25 mg PO DAILY Mental Health/Anxiety 07/24/24
hydroxyzine HCl 50 mg tablet 50 mg PO HS Mental Health/Anxiety 07/24/24
levothyroxine 100 mcg tablet (Synthroid) 100 mcg PO DAILY Thyroid 07/24/24
omeprazole 40 mg capsule,delayed release 40 mg PO BID Gastrointestinal Issue 07/24/24
famotidine 40 mg tablet (Pepcid) 40 mg PO BID 07/25/24
polyethylene glycol 3350 17 gram oral powder packet 17 g PO DAILY #30 ea 07/30/24
acetaminophen 325 mg tablet 650 mg PO Q4H PRN Fever 11/03/24
buprenorphine HCl 300 mcg buccal film (Belbuca) 300 mcg buccal Q12H 11/03/24
lidocaine 5 % topical patch 2 patch topical BID 11/03/24
oxycodone 10 mg tablet 10 mg PO Q6H 11/03/24
scopolamine base 1 mg over 3 days transdermal patch 1 patch transdermal Q48H 11/03/24
Review of Systems
-
History Source: Patient (Difficult ROS due to mental status / tangential)
A 12 point ROS was completed and negative except as noted: Yes
Constitutional: Reports Fever
EENT: Denies Sore Throat
Respiratory: Denies Cough or Trouble Breathing
Cardiac: Denies Chest Pain or Palpitations
Abdomen/GI: Reports Abdominal Pain, Diarrhea and Constipated; Denies Nausea or Vomiting
: Reports Dysuria; Denies Frequency or Urgency
Musculoskeletal: Reports Joint Pain; Denies Edema
Neurological: Reports Headache; Denies Dizzy
Psych: Reports Depression, Anxiety and Audio or Visual Hallucinations
Physical Exam
Vital Signs
Vital Signs
Temp Pulse Resp BP Pulse Ox
97.9 F 66 16 122/71 96
11/03/24 19:52 11/04/24 00:00 11/04/24 00:00 11/04/24 00:00 11/03/24 22:55
Physical Exam
General: Other (69y F in no acute distress. Awake and alert but with tangential answers / confused and disoriented.)
HEENT: Moist mucous membranes and PERRLA
Respiratory: Clear; No Wheezes, Rales or Rhonchi
Cardiac: S1/S2 and Regular Rhythm; No Murmur
GI: Soft, Non Tender, Non Distended and Normal Bowel Sounds
Musculoskeletal: No Clubbing, No Cyanosis and No Edema
Neuro: Awake, Alert and Nonfocal/grossly intact; No Oriented
Psych: No Agitated
Laboratory Results
-
11/03/24 20:03
11/03/24 20:03
Laboratory Results
Total Bilirubin 0.7 mg/dl (0.2-1.3) 11/03/24 20:03
AST 22 U/L (14-36) 11/03/24 20:03
ALT 14 U/L (0-35) 11/03/24 20:03
Alkaline Phosphatase 87 U/L (38-126) 11/03/24 20:03
Impression/Plan
-
A/P: Patient is a 69y F with PMH significant for chronic pain syndrome, anxiety / depression and recent fall with pelvic fracture who presents to ED for evaluation of hallucinations / change in mental status.
Hallucinations
Altered Mental Status
Acute TME
- Observe overnight for further evaluation and treatment.
- Seems likely that current hallucinations / AMS are secondary to recent medication changes / general polypharmacy.
- It does seem likely that patient has some underlying / undiagnosed psychiatric disorder given review of prior encounters with similar symptoms, hallucinations, tangential thoughts, etc.
- Change oxycodone back to PRN. Discontinue Belbuca (as was done during last hospitalization).
- Discontinue scopolamine completely.
- Adjust / decrease other medications as tolerated.
- Follow for clinical improvement.
- Consider Psych evaluation if patient does not improve with above medication adjustments.
- UA is equivocal and her current presentation is not consistent with UTI. Observe off of further abx.
Pelvic Fracture
- Fall on 10/31 with ED visit at that time. CT showed R inferior pubic ramus fracture.
- Continue pain control with standing Tylenol and PRN Toradol and oxycodone.
- Patient does NOT have an allergy to NSAIDs - listed reason of 'early renal insufficiency' is not in evidence given completely normal renal function.
- PT / OT evaluations.
Mild Hypokalemia
- Oral potassium given in the ED.
- Check Mg level. Hold HCTZ. Follow for improvement.
Chronic Pain Syndrome
Chronic Opioid Dependence
- Belbuca discontinued during 06/2024 hospitalization, but appears to have been restarted shortly after discharge.
- Would hold again.
- Change oxycodone back to PRN.
- Try to avoid sedating / centrally-acting medications in general.
- Follow for changes in pain / new complaints / etc.
- Continue topical lidocaine.
- Trial of NSAIDs PRN as noted above.
GERD
IBS
- Stable at present without current complaints of abdominal pain, diarrhea, etc.
- Continue Miralax daily for now and monitor for loose stools.
- Continue H2 blockade. Hold PPI for now.
Anxiety / Depression
- Continue current desvenlafaxine and escitalopram.
- Hydroxyzine PRN instead of standing.
- As noted above, suspect other underlying psychiatric disorder beyond anxiety / depression based on current and prior presentations.
DVT Prophylaxis: SCDs
Code Status: Full
[2024-11-04] MEDS: LR 1000 IV ×2 (03:01→14:44)
[2024-11-04] MEDS: ROXICODONE 10 MG PO ×4 (03:04→23:20)
[2024-11-04 05:21] LABS: Hematocrit 36.4 % (37.0-47.0); Hemoglobin 12.6 g/dL (12.0-16.0); Mean Corp Hgb Conc. 34.6 g/dL (33.0-37.0); Mean Corpuscular Hgb 28.8 pg (27.0-31.0); Mean Corpuscular Volume 83.3 fL (81.0-99.0); Platelet Count 274 10^3/uL (130-400); Red Blood Cell Count 4.37 10^6/uL (4.20-5.40); Red Cell Dist. Width 11.9 % (11.5-14.5); White Blood Cell Count 8.5 10^3/uL (4.8-10.8)
[2024-11-04] MEDS: SYNTHROID 100 MCG PO (05:28)
[2024-11-04] MEDS: TYLENOL 650 MG PO (05:28)
--- NOTE | 2024-11-04 05:36 | PTCARENOTE ---
0150-received pt from ED, pt transferred into bed. placed on tele #[id number], attempt to orient pt to room and call meneses, pt not retaining information. pt with confused conversation but Ox3. Bed alarm on bed.
[2024-11-04 05:46] LABS: ALT (SGPT) 11 U/L (0-35); AST (SGOT) 18 U/L (14-36); Albumin 3.8 g/dl (3.5-5.0); Alkaline Phosphatase 87 U/L (38-126); Blood Urea Nitrogen 14 mg/dl (7-17); Carbon Dioxide 25 mmol/L (22-30); Chloride 100 mmol/L (98-107); Direct Bilirubin 0.1 mg/dl (0.0-0.4); Estimated Creatinine Clearance 80 ml/min; Glucose 102 mg/dl (70-99); Magnesium 2.2 mg/dl (1.6-2.3); Potassium 3.7 mmol/L (3.5-5.1); Sodium 134 mmol/L (135-145); Total Bilirubin 0.5 mg/dl (0.2-1.3); Total Protein 6.4 g/dl (6.3-8.2); eGFR > 60.00
[2024-11-04 06:45] LABS: Free T4 2.11 ng/dl (0.78-2.19)
--- NOTE | 2024-11-04 07:10 | W.PN.HOSP.TC ---
Today's Communication/Plan
-
pain control
monitor mental status
diet as tolerated
cont IVF for now pending improvement in oral intake
PT/OT
Assessment / Plan
Assessment / Plan
Physical Exam
General: mild moderate distress d/t pain
HEENT: Moist mucous membranes and PERRLA
Respiratory: Clear; No Wheezes, Rales or Rhonchi
Cardiac: S1/S2 and Regular Rhythm; No Murmur
GI: Soft, Non Tender, Non Distended and Normal Bowel Sounds
Musculoskeletal: No Clubbing, No Cyanosis and No Edema
Neuro: AOx3
Psych: Anxious, no hallucinations noted at this time
A/P: Patient is a 69y F with PMH significant for chronic pain syndrome, anxiety / depression and recent fall with pelvic fracture who presents to ED for evaluation of hallucinations / change in mental status.
Hallucinations suspect d/t anticholinergic effects multiple medications including Scopolamine patch and Hydroxyzine
Altered Mental Status, Acute TME
- hallucinations/AMS likely 2/2 polypharmacy
- Home oxycodone changed from scheduled to PRN. Discontinued Belbuca (was done during last hospitalization).
- Discontinued scopolamine patch
- Adjust/decrease other medications as tolerated.
- Follow for clinical improvement.
- Consider Psych evaluation if patient does not improve with medication adjustments.
- UA is equivocal and her current presentation is not consistent with UTI. Observe off abx.
Diet as tolerated
cont IVF for now pending improvement in oral intake
Pelvic Fracture
- Fall on 10/27 with ED visit at that time. CT showed R inferior pubic ramus fracture.
- Continue pain control with standing Tylenol and PRN Toradol and oxycodone.
- PT / OT evaluations.
Mild Hypokalemia
- monitor and replete as necessary
- home HCTZ on hold
Chronic Pain Syndrome
Chronic Opioid Dependence
- Belbuca discontinued during 06/2024 hospitalization, but restarted shortly after discharge. Placed on hold again.
- oxycodone Toradol PRN, Dilaudid severe breakthrough pain
- Continue topical lidocaine.
GERD
IBS
- Continue Miralax daily for now and monitor for loose stools.
- Continue Pepcid
Anxiety / Depression
- Continue current desvenlafaxine and escitalopram.
- Hydroxyzine PRN instead of standing
PT/OT appreciated SNF rehab (patient is currently assisted [facility] )
DVT Prophylaxis: SCDs
GI ppx Pepcid
Code Status: Full
I spent a total of 50 minutes with the patient or on the floor. More than 50% of this time involved counseling and coordination of care.
Anticipated Discharge: 24 - 48 hours
Subjective/Interval History
-
Date of Service: November 04, 2024
No acute distress AOx3 no significant hallucinations noted at this time. Able to report correct number of people in room. Reporting significant musculoskeletal pain including pain from recent pelvic fracture
Objective Data
-
Labs:
Laboratory Results
11/03/24 11/04/24
20:03 04:44
WBC 10.0 8.5
Hgb 14.0 12.6
Hct 40.8 36.4 L
Plt Count 281 274
Sodium 134 L 134 L
Potassium 3.1 L 3.7
Chloride 97 L 100
Carbon Dioxide 26 25
BUN 16 14
Creatinine 0.8 0.7
Glucose 130 H 102 H
Calcium 9.5 9.0
Total Bilirubin 0.7 0.5
AST 22 18
ALT 14 11
Alkaline Phosphatase 87 87
Vital Signs:
Vital Signs
Temp Pulse Resp BP Pulse Ox
98.1 F 68 18 118/73 96
11/04/24 03:40 11/04/24 03:40 11/04/24 03:40 11/04/24 03:40 11/04/24 03:40
I&O
11/03/24 11/04/24 11/05/24
05:59 06:59 06:59
Intake Total
Balance
[2024-11-04] MEDS: LIDOCAINE 4% PATCH TOPICAL ×2 (08:29→13:55)
[2024-11-04] MEDS: LEXAPRO 20 MG PO (08:36)
[2024-11-04] MEDS: MIRALAX 17 GRAMS PO (08:36)
[2024-11-04] MEDS: CLARITIN 10 MG PO (08:36)
[2024-11-04] MEDS: PEPCID 40 MG PO ×2 (08:41→21:18)
[2024-11-04] MEDS: PRISTIQ 50 MG PO (09:42)
[2024-11-04] MEDS: TORADOL 10 MG IV ×2 (12:48→18:46)
[2024-11-04] MEDS: DILAUDID 0.5 MG IV (14:44)
[2024-11-04] MEDS: LIDOCAINE 4% PATCH 2 PATCH TOPICAL (21:18)
[2024-11-05] MEDS: LR 1000 IV ×2 (00:07→11:48)
[2024-11-05] MEDS: TORADOL 10 MG IV ×2 (01:23→11:45)
[2024-11-05] MEDS: TYLENOL 650 MG PO (01:24)
[2024-11-05] MEDS: DILAUDID 0.5 MG IV (02:31)
[2024-11-05 03:23] VITALS: BP 117/67
[2024-11-05] MEDS: SYNTHROID 100 MCG PO (05:23)
[2024-11-05 06:36] LABS: Hematocrit 33.2 % (37.0-47.0); Hemoglobin 11.3 g/dL (12.0-16.0); Mean Corpuscular Hgb 28.8 pg (27.0-31.0); Mean Corpuscular Volume 84.7 fL (81.0-99.0); Mean Platelet Volume 9.9 fL (7.4-10.4); Platelet Count 245 10^3/uL (130-400); Red Blood Cell Count 3.92 10^6/uL (4.20-5.40); Red Cell Dist. Width 11.9 % (11.5-14.5); White Blood Cell Count 6.7 10^3/uL (4.8-10.8)
[2024-11-05 07:01] LABS: Blood Urea Nitrogen 12 mg/dl (7-17); Calcium 8.9 mg/dl (8.4-10.2); Carbon Dioxide 27 mmol/L (22-30); Chloride 104 mmol/L (98-107); Estimated Creatinine Clearance 80 ml/min; Glucose 91 mg/dl (70-99); Magnesium 2.1 mg/dl (1.6-2.3); Phosphorus 3.3 mg/dl (2.5-4.5); Potassium 3.5 mmol/L (3.5-5.1); Sodium 135 mmol/L (135-145); eGFR > 60.00
[2024-11-05 07:28] LABS: TSH Reflex To Free T4 7.63 uIU/ml (0.47-4.68)
[2024-11-05 07:38] VITALS: BP 131/67
[2024-11-05 07:58] LABS: Free T4 2.34 ng/dl (0.78-2.19)
--- NOTE | 2024-11-05 08:23 | W.PN.HOSP.TC ---
Today's Communication/Plan
-
Pain control
Hallucinations improved
SNF placement pending
Assessment / Plan
Assessment / Plan
Physical Exam
General: Not in acute distress
HEENT: Moist mucous membranes
Respiratory: Clear to Auscultation Bilaterally
Cardiac: S1/S2 and Regular Rhythm
GI: Soft, Non Tender, Non Distended and Normal Bowel Sounds
Musculoskeletal: No Cyanosis and No Edema
Neuro: AAOx3
Psych: Anxious, no hallucinations noted at this time
Assessment/Plan
Patient is a 69y F with PMH significant for chronic pain syndrome, anxiety / depression and recent fall with pelvic fracture who presents to ED for evaluation of hallucinations / change in mental status.
Hallucinations suspect d/t anticholinergic effects multiple medications including Scopolamine patch and Hydroxyzine
Altered Mental Status, Acute TME
- hallucinations/AMS likely 2/2 polypharmacy
- Home oxycodone changed from scheduled to PRN. Belbuca (was done during last hospitalization) discontinued earlier on this hospitalization.
- Scopolamine patch discontinued earlier on this hospitalization
- Adjust/decrease other medications as tolerated.
- Follow for clinical improvement.
- Consider Psych evaluation if patient does not improve with medication adjustments.
- UA is equivocal and her current presentation is not consistent with UTI. Observe off abx.
Diet as tolerated
Pelvic Fracture
- Fall on 10/27 with ED visit at that time. CT showed R inferior pubic ramus fracture.
- Continue pain control with standing Tylenol and PRN Toradol and oxycodone.
- PT / OT evaluations.
Mild Hypokalemia - RESOLVED
- monitor and replete as necessary
- home HCTZ on hold
Chronic Pain Syndrome
Chronic Opioid Dependence
- Still in significant RT groin pain on 11/05/24 morning -- discussed with nurse who will give her current pain medications which are due
- Scheduled Tylenol added
- Belbuca discontinued during 06/2024 hospitalization, but restarted shortly after discharge. Placed on hold again.
- oxycodone Toradol PRN, Dilaudid severe breakthrough pain
- Continue topical lidocaine.
GERD
IBS
- Continue Miralax daily for now and monitor for loose stools.
- Continue Pepcid
Anxiety / Depression
- Continue current desvenlafaxine and escitalopram.
- Hydroxyzine PRN instead of standing
PT/OT appreciated SNF rehab (patient is currently assisted Living [facility])
DVT Prophylaxis: SCDs. Lovenox.
GI ppx Pepcid
Code Status: Full
Anticipated Discharge: 24 - 48 hours
Subjective/Interval History
-
Date of Service: November 05, 2024
Patient was seen and examined. She reported some pain from her recent right pubic fracture. She denied any other symptoms or complaints.
Objective Data
-
Labs:
Laboratory Results
11/05/24
06:00
WBC 6.7
Hgb 11.3 L
Hct 33.2 L
Plt Count 245
Sodium 135
Potassium 3.5
Chloride 104
Carbon Dioxide 27
BUN 12
Creatinine 0.7
Glucose 91
Calcium 8.9
Vital Signs:
Vital Signs
Temp Pulse Resp BP Pulse Ox
97.7 F 65 17 131/67 95
11/05/24 07:38 11/05/24 07:38 11/05/24 07:38 11/05/24 07:38 11/05/24 07:38
I&O
11/04/24 11/05/24 11/06/24
06:59 06:59 06:59
Intake Total 2640 / 2640
Balance 2640 / 2640
[2024-11-05] MEDS: CLARITIN 10 MG PO (08:41)
[2024-11-05] MEDS: PEPCID 40 MG PO ×2 (08:41→19:57)
[2024-11-05] MEDS: ROXICODONE 10 MG PO ×3 (08:41→21:09)
[2024-11-05] MEDS: MIRALAX 17 GRAMS PO (08:42)
[2024-11-05] MEDS: PRISTIQ 50 MG PO (08:42)
[2024-11-05] MEDS: LEXAPRO 20 MG PO (08:42)
[2024-11-05] MEDS: LIDOCAINE 4% PATCH TOPICAL ×2 (08:43→20:01)
--- NOTE | 2024-11-05 09:25 | PTCARENOTE ---
Patient c/o back pain and sacral discomfort. Roxicodone given for 7/10 pain. Patient encourage to get OOB to chair. Patient refused to get OOB. Patient refusing to eat breakfast. Patient able to get self OOB to C with supervision.
--- NOTE | 2024-11-05 09:30 | PTCARENOTE ---
Patient is anxious and forgetful. Patient states, 'I did not have any pain med since last night.' RN reminded patient that Oxycodone and Tylenol were given this am. All pain meds were reviewed and patient verbalized understanding at that time. RN
attempted to get patient to sit in chair for breakfast and patient refused, because she is not eating breakfast and wants to make some phone calls.
[2024-11-05 10:59] VITALS: BP 116/41
[2024-11-05] MEDS: TYLENOL 1000 MG PO ×3 (11:45→23:17)
--- NOTE | 2024-11-05 12:09 | CM ---
CM reviewed chart, patient seen bedside. Patient resides at [facility] [place]. CM spoke with nurse from [facility], patient typically alert/oriented, ambulates with walker. Per PT, patient current assist x2, recommendation of
SNF. Patient agreeable to rehab, reports she was at [facility] in past, agreeable to referral to return. OBS form reviewed, signed, placed in chart. Patient provided with copy. CM will continue to follow for all discharge planning needs.
Plan; referral to [facility] ([place] will need auth if accepted.
[2024-11-05 14:54] VITALS: BP 129/72
[2024-11-05] MEDS: LR IV (15:14)
--- NOTE | 2024-11-05 15:30 | PTCARENOTE ---
Patient sleeping with no s/s of discomfort. Call meneses in reach, bed alarm maintained.
--- NOTE | 2024-11-05 16:42 | PTCARENOTE ---
Patient woke up from nap and thought she was in a garage filled with paint cans. Patient reoriented to the room. Patient knows she is in [facility], but insists we put her in the garage. Patient assisted OOB to [facility] with min assist and
walker.
[2024-11-05] MEDS: LOVENOX 40 MG SC (16:53)
[2024-11-05 19:00] VITALS: BP 130/69
[2024-11-05 23:00] VITALS: BP 147/80
[2024-11-06] VITALS (7 sets, daily range): BP systolic 123–160; BP diastolic 69–91
[2024-11-06] MEDS: ROXICODONE 10 MG PO ×4 (03:34→23:02)
[2024-11-06] MEDS: SYNTHROID 100 MCG PO (05:14)
[2024-11-06 07:22] LABS: Blood Urea Nitrogen 7 mg/dl (7-17); Calcium 8.8 mg/dl (8.4-10.2); Carbon Dioxide 28 mmol/L (22-30); Chloride 107 mmol/L (98-107); Estimated Creatinine Clearance 80 ml/min; Glucose 89 mg/dl (70-99); Potassium 3.6 mmol/L (3.5-5.1); Sodium 139 mmol/L (135-145); eGFR > 60.00
[2024-11-06] MEDS: MIRALAX 17 GRAMS PO (08:43)
[2024-11-06] MEDS: CLARITIN 10 MG PO (08:43)
[2024-11-06] MEDS: PRISTIQ 50 MG PO (08:43)
[2024-11-06] MEDS: TYLENOL 1000 MG PO ×3 (08:43→23:01)
[2024-11-06] MEDS: PEPCID 40 MG PO (08:44)
[2024-11-06] MEDS: LEXAPRO 20 MG PO (08:44)
[2024-11-06] MEDS: LIDOCAINE 4% PATCH TOPICAL ×2 (08:44→20:01)
--- NOTE | 2024-11-06 10:38 | W.PN.HOSP.TC ---
Today's Communication/Plan
-
SNF placement pending, discussed with case management
Assessment / Plan
Assessment / Plan
Physical Exam
General: Not in acute distress
HEENT: Moist mucous membranes
Respiratory: Clear to Auscultation Bilaterally
Cardiac: S1/S2 and Regular Rhythm
GI: Soft, Non Tender, Non Distended and Normal Bowel Sounds
Musculoskeletal: No Cyanosis and No Edema
Neuro: AAOx3
Psych: Anxious, no hallucinations noted at this time
Assessment/Plan
Patient is a 69y F with PMH significant for chronic pain syndrome, anxiety / depression and recent fall with pelvic fracture who presents to ED for evaluation of hallucinations / change in mental status.
Hallucinations suspect d/t anticholinergic effects multiple medications including Scopolamine patch and Hydroxyzine
Altered Mental Status, Acute TME
- hallucinations/AMS likely 2/2 polypharmacy
- Home oxycodone changed from scheduled to PRN. Belbuca (was done during last hospitalization) discontinued earlier on this hospitalization.
- Scopolamine patch discontinued earlier on this hospitalization
- Adjust/decrease other medications as tolerated.
- Follow for clinical improvement.
- Consider Psych evaluation if patient does not improve with medication adjustments.
- UA is equivocal and her current presentation is not consistent with UTI. Observe off abx.
Diet as tolerated
Pelvic Fracture
- Fall on 10/27 with ED visit at that time. CT showed R inferior pubic ramus fracture.
- Continue pain control with standing Tylenol and PRN Toradol and oxycodone.
- PT / OT evaluations.
Mild Hypokalemia - RESOLVED
- monitor and replete as necessary
- home HCTZ on hold
Chronic Pain Syndrome
Chronic Opioid Dependence
- Still in significant RT groin pain on 11/05/24 morning -- continue current pain regimen
- Scheduled Tylenol added
- Belbuca discontinued during 06/2024 hospitalization, but restarted shortly after discharge. Placed on hold again.
- Continue Oxycodone PRN; holding IV Dilaudid severe breakthrough pain as patient has not needed it since 11/05/24 morning
- Continue topical lidocaine.
GERD
IBS
- Continue Miralax daily for now and monitor for loose stools.
- Continue Pepcid
Anxiety / Depression
- Continue current desvenlafaxine and escitalopram.
- Hydroxyzine PRN instead of standing
PT/OT appreciated SNF rehab ([facility]
DVT Prophylaxis: SCDs. Lovenox.
GI ppx Pepcid
Code Status: Full
Anticipated Discharge: Today
Subjective/Interval History
-
Date of Service: November 06, 2024
Patient was seen and examined. She reported some mild back pain, was sleeping, denied any other complaints.
Objective Data
-
Labs:
Laboratory Results
11/06/24
05:56
Sodium 139
Potassium 3.6
Chloride 107
Carbon Dioxide 28
BUN 7
Creatinine 0.7
Glucose 89
Calcium 8.8
Vital Signs:
Vital Signs
Temp Pulse Resp BP Pulse Ox
98.0 F 76 18 126/69 95
11/06/24 07:37 11/06/24 07:37 11/06/24 07:37 11/06/24 07:37 11/06/24 07:37
I&O
11/05/24 11/06/24 11/07/24
06:59 06:59 06:59
Intake Total 2640 / 2640 720 / 720
Balance 2640 / 2640 720 / 720
--- NOTE | 2024-11-06 16:04 | CM ---
Spoke with Brigid from [facility]. She stated to send updates to [place].
[2024-11-06] MEDS: ATARAX 25 MG PO (17:16)
[2024-11-06] MEDS: LOVENOX 40 MG SC (17:37)
[2024-11-06] MEDS: PEPCID 20 MG PO (20:00)
[2024-11-07 03:12] VITALS: BP 117/71
[2024-11-07] MEDS: SYNTHROID 100 MCG PO (05:02)
[2024-11-07] MEDS: ROXICODONE 10 MG PO ×4 (05:02→23:35)
[2024-11-07 07:11] LABS: Blood Urea Nitrogen 10 mg/dl (7-17); Calcium 9.1 mg/dl (8.4-10.2); Carbon Dioxide 23 mmol/L (22-30); Chloride 107 mmol/L (98-107); Estimated Creatinine Clearance 80 ml/min; Glucose 92 mg/dl (70-99); Potassium 3.4 mmol/L (3.5-5.1); Sodium 137 mmol/L (135-145); eGFR > 60.00
[2024-11-07 07:20] VITALS: BP 144/73
[2024-11-07] MEDS: LIDOCAINE 4% PATCH TOPICAL ×2 (07:26→20:44)
[2024-11-07] MEDS: PEPCID 20 MG PO ×2 (07:27→20:44)
[2024-11-07] MEDS: MIRALAX 17 GRAMS PO (07:27)
[2024-11-07] MEDS: PRISTIQ 50 MG PO (07:27)
[2024-11-07] MEDS: TYLENOL 1000 MG PO ×3 (07:27→23:35)
[2024-11-07] MEDS: CLARITIN 10 MG PO (07:28)
[2024-11-07] MEDS: LEXAPRO 20 MG PO (07:28)
--- NOTE | 2024-11-07 10:32 | W.PN.HOSP.TC ---
Today's Communication/Plan
-
Discharge today if bed available
Assessment / Plan
Assessment / Plan
Physical Exam
General: Not in acute distress
HEENT: Moist mucous membranes
Respiratory: Clear to Auscultation Bilaterally
Cardiac: S1/S2 and Regular Rhythm
GI: Soft, Non Tender, Non Distended and Normal Bowel Sounds
Musculoskeletal: No Cyanosis and No Edema
Neuro: AAOx3
Psych: Anxious, no hallucinations noted at this time
Assessment/Plan
Patient is a 69y F with PMH significant for chronic pain syndrome, anxiety / depression and recent fall with pelvic fracture who presents to ED for evaluation of hallucinations / change in mental status.
Hallucinations suspect d/t anticholinergic effects multiple medications including Scopolamine patch and Hydroxyzine
Altered Mental Status, Acute TME
- hallucinations/AMS likely 2/2 polypharmacy
- Home oxycodone changed from prn back to scheduled -- patient reports improvement in pain. Belbuca discontinued since admission.
- Scopolamine patch discontinued earlier on this hospitalization
- Adjust/decrease other medications as tolerated.
- Follow for clinical improvement.
- Consider Psych evaluation if patient does not improve with medication adjustments.
- UA is equivocal and her current presentation is not consistent with UTI. Observe off abx.
Diet as tolerated
History of Prolonged QTc
- Check EKG QTc
- Hold Atarax
- Decrease escitalopram from 20 mg to 10 mg to help with QTc
Pelvic Fracture
- Fall on 10/27 with ED visit at that time. CT showed R inferior pubic ramus fracture.
- Continue pain control with standing Tylenol and PRN Toradol and oxycodone.
- PT / OT evaluations.
Mild Hypokalemia
- monitor and replete as necessary -- repleted again on 11/07/24
- home HCTZ on hold
Chronic Pain Syndrome
Chronic Opioid Dependence
- Still in significant RT groin pain on 11/05/24 morning -- continue current pain regimen
- Scheduled Tylenol added
- Belbuca discontinued during 06/2024 hospitalization, but restarted shortly after discharge. Placed on hold again.
- Continue Oxycodone (changed to scheduled from prn as patient complaining of pain); holding IV Dilaudid severe breakthrough pain as patient has not needed it since 11/05/24 morning
- Will consider adding PO Dilaudid PRN
- Continue topical lidocaine.
GERD
IBS
- Continue Miralax daily for now and monitor for loose stools.
- Continue Pepcid
Anxiety / Depression
- Continue current desvenlafaxine. Escitalopram dose reduced to help with QTc.
- Hydroxyzine PRN instead of standing change was made earlier this admission, now hydroxyzine on hold to prevent QTc prolongation
PT/OT appreciated SNF rehab (patient is currently assisted Living [facility])
DVT Prophylaxis: SCDs. Lovenox.
GI ppx Pepcid
Code Status: Full
Anticipated Discharge: Today
Subjective/Interval History
-
Date of Service: November 07, 2024
Patient was seen and examined. She reported pain improved with changing yesterday the Oxycodone to scheduled from PRN.
Objective Data
-
Labs:
Laboratory Results
11/07/24
06:14
Sodium 137
Potassium 3.4 L
Chloride 107
Carbon Dioxide 23
BUN 10
Creatinine 0.7
Glucose 92
Calcium 9.1
Vital Signs:
Vital Signs
Temp Pulse Resp BP Pulse Ox
98.1 F 69 17 144/73 96
11/07/24 07:20 11/07/24 07:20 11/07/24 07:20 11/07/24 07:20 11/07/24 07:30
I&O
11/06/24 11/07/24 11/08/24
06:59 06:59 06:59
Intake Total 720 / 720 1650 / 1650
Balance 720 / 720 1650 / 1650
[2024-11-07] MEDS: KCL 40 MEQ PO (11:03)
[2024-11-07 14:22] VITALS: BP 154/84; PULSE 77; O2SAT 93
[2024-11-07 15:12] VITALS: BP 150/86
[2024-11-07] MEDS: LOVENOX 40 MG SC (17:23)
[2024-11-07 23:10] VITALS: BP 141/79
[2024-11-08] MEDS: ROXICODONE 10 MG PO ×3 (05:30→17:39)
[2024-11-08] MEDS: SYNTHROID 100 MCG PO (05:31)
[2024-11-08 07:01] LABS: Blood Urea Nitrogen 15 mg/dl (7-17); Calcium 8.9 mg/dl (8.4-10.2); Carbon Dioxide 21 mmol/L (22-30); Chloride 107 mmol/L (98-107); Estimated Creatinine Clearance 80 ml/min; Glucose 97 mg/dl (70-99); Magnesium 2.2 mg/dl (1.6-2.3); Potassium 3.9 mmol/L (3.5-5.1); Sodium 135 mmol/L (135-145); eGFR > 60.00
[2024-11-08 07:13] VITALS: BP 122/68
[2024-11-08] MEDS: PEPCID 20 MG PO ×2 (08:33→20:30)
[2024-11-08] MEDS: LEXAPRO 10 MG PO (08:33)
[2024-11-08] MEDS: MIRALAX 17 GRAMS PO (08:33)
[2024-11-08] MEDS: PRISTIQ 50 MG PO (08:33)
[2024-11-08] MEDS: CLARITIN 10 MG PO (08:33)
[2024-11-08] MEDS: TYLENOL 1000 MG PO ×2 (08:33→17:39)
[2024-11-08] MEDS: LIDOCAINE 4% PATCH TOPICAL ×2 (08:34→20:29)
--- NOTE | 2024-11-08 10:58 | W.PN.HOSP.TC ---
Today's Communication/Plan
-
SNF/Rehab placement still pending, no beds yet as per case management
PRN Oral Dilaudid added for severe breakthrough pain
Assessment / Plan
Assessment / Plan
Physical Exam
General: Not in acute distress
HEENT: Moist mucous membranes
Respiratory: Clear to Auscultation Bilaterally
Cardiac: S1/S2 and Regular Rhythm
GI: Soft, Non Tender, Non Distended and Normal Bowel Sounds
Musculoskeletal: No Cyanosis and No Edema
Neuro: AAOx3
Psych: Anxious, no hallucinations noted at this time
Assessment/Plan
Patient is a 69y F with PMH significant for chronic pain syndrome, anxiety / depression and recent fall with pelvic fracture who presents to ED for evaluation of hallucinations / change in mental status.
Hallucinations suspect d/t anticholinergic effects multiple medications including Scopolamine patch and Hydroxyzine
Altered Mental Status, Acute TME
- hallucinations/AMS likely 2/2 polypharmacy
- Home oxycodone changed from prn back to scheduled -- patient reports improvement in pain. Belbuca discontinued since admission.
- Scopolamine patch discontinued earlier on this hospitalization
- Adjust/decrease other medications as tolerated.
- Follow for clinical improvement.
- Consider Psych evaluation if patient does not improve with medication adjustments.
- UA is equivocal and her current presentation is not consistent with UTI. Observe off abx.
Diet as tolerated
History of Prolonged QTc
- Checked EKG QTc -- 473 ms as of 11/08/24
- Hold Atarax
- Decreased escitalopram from 20 mg to 10 mg to help with QTc
Pelvic Fracture
- Fall on 10/27 with ED visit at that time. CT showed R inferior pubic ramus fracture.
- Continue pain control with standing Tylenol and PRN Toradol and oxycodone.
- PT / OT evaluations.
Mild Hypokalemia
- monitor and replete as necessary -- repleted again on 11/07/24
- home HCTZ on hold
Chronic Pain Syndrome
Chronic Opioid Dependence
- Still in significant RT groin pain on 11/05/24 morning -- continue current pain regimen
- Scheduled Tylenol added
- Belbuca discontinued during 06/2024 hospitalization, but restarted shortly after discharge. Belbuca placed on hold again.
- Continue Oxycodone (changed to scheduled from prn as patient complaining of pain); holding IV Dilaudid
- Added PO Dilaudid PRN as patient reports significant pain and requested this
- Continue topical lidocaine.
GERD
IBS
- Continue Miralax daily for now and monitor for loose stools.
- Continue Pepcid
Anxiety / Depression
- Continue current desvenlafaxine. Escitalopram dose reduced to help with QTc.
- Hydroxyzine PRN instead of standing change was made earlier this admission, now hydroxyzine on hold to prevent QTc prolongation
PT/OT appreciated SNF rehab (patient is currently assisted Living [facility])
DVT Prophylaxis: SCDs. Lovenox.
GI ppx Pepcid
Code Status: Full
Anticipated Discharge: 24 - 48 hours
Subjective/Interval History
-
Date of Service: November 08, 2024
Patient was seen and examined. She reported chronic pain, no new symptoms.
Objective Data
-
Labs:
Laboratory Results
11/08/24
06:06
Sodium 135
Potassium 3.9
Chloride 107
Carbon Dioxide 21 L
BUN 15
Creatinine 0.7
Glucose 97
Calcium 8.9
Vital Signs:
Vital Signs
Temp Pulse Resp BP Pulse Ox
98.0 F 66 18 122/68 96
11/08/24 07:13 11/08/24 07:13 11/08/24 07:13 11/08/24 07:13 11/08/24 07:13
I&O
11/07/24 11/08/24 11/09/24
06:59 06:59 06:59
Intake Total 1650 / 1650 1290 / 1290
Balance 1650 / 1650 1290 / 1290
--- NOTE | 2024-11-08 12:44 | CM ---
Reviewed the chart notes and spoke with the patient at the bedside. CM updated the patient on no beds at [facility]. Discussed other facilities in the area. Permission received to sent to other area SNFs. TT to PT requesting updated notes. Precert
will be required. CM continues to be available to patient/family and is monitoring medical plan for needs at discharge.
Plan: Discharge to SNF/rehab once bed found and precert received.
[2024-11-08] MEDS: DILAUDID 2 MG PO ×2 (15:04→21:22)
[2024-11-08 15:06] VITALS: BP 119/80; PULSE 80; O2SAT 98
[2024-11-08 16:06] VITALS: BP 145/82
[2024-11-08] MEDS: LOVENOX 40 MG SC (17:39)
[2024-11-08] MEDS: ROBITUSSIN 100 MG PO (20:30)
[2024-11-08 23:25] VITALS: BP 158/86
[2024-11-09] MEDS: ROXICODONE 10 MG PO ×5 (00:05→23:21)
[2024-11-09] MEDS: TYLENOL 1000 MG PO ×4 (00:05→23:21)
[2024-11-09] MEDS: ROBITUSSIN 100 MG PO ×4 (00:39→21:32)
[2024-11-09] MEDS: SYNTHROID 100 MCG PO (06:27)
[2024-11-09 07:05] VITALS: BP 133/99
--- NOTE | 2024-11-09 07:12 | W.PN.HOSP.TC ---
Today's Communication/Plan
-
Bed still pending
Cough, Sore Throat, Fatigue on 11/09/24
Diarrhea on 11/09/24
-Check flu, covid
-Check stool studies
Assessment / Plan
Assessment / Plan
Physical Exam
General: Not in acute distress
HEENT: Moist mucous membranes
Respiratory: Clear to Auscultation Bilaterally
Cardiac: S1/S2 and Regular Rhythm
GI: Soft, Non Tender, Non Distended and Normal Bowel Sounds
Musculoskeletal: No Cyanosis and No Edema
Neuro: AAOx3
Psych: Anxious, no hallucinations noted at this time
Assessment/Plan
Patient is a 69y F with PMH significant for chronic pain syndrome, anxiety / depression and recent fall with pelvic fracture who presents to ED for evaluation of hallucinations / change in mental status.
Hallucinations suspect d/t anticholinergic effects multiple medications including Scopolamine patch and Hydroxyzine
Altered Mental Status, Acute TME
- hallucinations/AMS likely 2/2 polypharmacy
- Home oxycodone changed from prn back to scheduled -- patient reports improvement in pain. Belbuca discontinued since admission.
- Scopolamine patch discontinued earlier on this hospitalization
- Adjust/decrease other medications as tolerated.
- Follow for clinical improvement.
- Consider Psych evaluation if patient does not improve with medication adjustments.
- UA is equivocal and her current presentation is not consistent with UTI. Observe off abx.
Cough, Sore Throat, Fatigue on 11/09/24
Diarrhea on 11/09/24
-Check flu, covid
-Check stool studies
Diet as tolerated
History of Prolonged QTc
- Checked EKG QTc -- 473 ms as of 11/08/24
- Hold Atarax
- Decreased escitalopram from 20 mg to 10 mg to help with QTc
Pelvic Fracture
- Fall on 10/27 with ED visit at that time. CT showed R inferior pubic ramus fracture.
- Continue pain control with standing Tylenol and PRN Toradol and oxycodone.
- PT / OT evaluations.
Mild Hypokalemia
- monitor and replete as necessary -- repleted again on 11/07/24
- home HCTZ on hold
Chronic Pain Syndrome
Chronic Opioid Dependence
- Still in significant RT groin pain on 11/05/24 morning -- continue current pain regimen
- Scheduled Tylenol added
- Belbuca discontinued during 06/2024 hospitalization, but restarted shortly after discharge. Belbuca placed on hold again.
- Continue Oxycodone (changed to scheduled from prn as patient complaining of pain); holding IV Dilaudid
- Added PO Dilaudid PRN as patient reports significant pain and requested this
- Continue topical lidocaine.
GERD
IBS
- Continue Miralax daily for now and monitor for loose stools.
- Continue Pepcid
Anxiety / Depression
- Continue current desvenlafaxine. Escitalopram dose reduced to help with QTc.
- Hydroxyzine PRN instead of standing change was made earlier this admission, now hydroxyzine on hold to prevent QTc prolongation
PT/OT appreciated SNF rehab ([facility] is currently assisted Living [facility] )
DVT Prophylaxis: SCDs. Lovenox.
GI ppx Pepcid
Code Status: Full
Anticipated Discharge: > 48 hours
Subjective/Interval History
-
Date of Service: November 09, 2024
Patient was seen and examined. Overnight Robitussin was ordered for cough. Later in the day patient reported cough, sore throat and fatigue, saying she 'feels sick.' She also reported diarrhea.
Objective Data
-
Vital Signs:
Vital Signs
Temp Pulse Resp BP Pulse Ox
98.4 F 66 18 158/86 96
11/08/24 23:25 11/08/24 23:25 11/08/24 23:25 11/08/24 23:25 11/08/24 23:25
I&O
11/08/24 11/09/24 11/10/24
06:59 06:59 06:59
Intake Total 1290 / 1290 1200 / 1200
Balance 1290 / 1290 1200 / 1200
[2024-11-09] MEDS: PEPCID 20 MG PO ×2 (07:44→21:33)
[2024-11-09] MEDS: PRISTIQ 50 MG PO (07:44)
[2024-11-09] MEDS: MIRALAX 17 GRAMS PO (07:44)
[2024-11-09] MEDS: CLARITIN 10 MG PO (07:45)
[2024-11-09] MEDS: LIDOCAINE 4% PATCH TOPICAL ×2 (07:45→21:28)
[2024-11-09] MEDS: LEXAPRO 10 MG PO (07:45)
[2024-11-09 15:05] VITALS: BP 110/68
[2024-11-09] MEDS: DILAUDID 2 MG PO (16:36)
[2024-11-09] MEDS: LOVENOX 40 MG SC (17:32)
--- NOTE | 2024-11-09 18:20 | PTCARENOTE ---
Pt c/o cough, sore throat, fatigue, loss of appetite and states that she 'feels sick'. She has also been having loose stools/diarrhea for the past few days. Dr Thacker notified via tiger text and asked if he wanted to order flu/covid test. Dario
text acknowledged by . No new orders at this time.
[2024-11-09] MEDS: DILAUDID 1 MG PO (21:30)
[2024-11-09 22:26] LABS: COVID-19 Antigen Negative (Negative)
--- NOTE | 2024-11-09 23:23 | W.PN.UPDATE ---
Update Note
Progress Note Update
Flu A positive test result received. Tamiflu 75 mg bid x 5 days started.
[2024-11-09 23:51] VITALS: BP 134/68
[2024-11-09] MEDS: TAMIFLU 75 MG PO (23:51)
[2024-11-10] MEDS: SYNTHROID 100 MCG PO (06:09)
[2024-11-10] MEDS: ROXICODONE 10 MG PO ×4 (06:09→23:18)
[2024-11-10 07:26] VITALS: BP 133/68
[2024-11-10] MEDS: TYLENOL 1000 MG PO ×3 (08:51→23:18)
[2024-11-10] MEDS: MIRALAX 17 GRAMS PO (08:51)
[2024-11-10] MEDS: LEXAPRO 10 MG PO (08:52)
[2024-11-10] MEDS: TAMIFLU 75 MG PO ×2 (08:52→20:34)
[2024-11-10] MEDS: PRISTIQ 50 MG PO (08:52)
[2024-11-10] MEDS: LIDOCAINE 4% PATCH TOPICAL ×2 (08:52→20:30)
[2024-11-10] MEDS: PEPCID 20 MG PO ×2 (08:52→20:34)
[2024-11-10] MEDS: CLARITIN 10 MG PO (08:52)
[2024-11-10] MEDS: DILAUDID 1 MG PO ×2 (09:01→15:26)
[2024-11-10 10:11] LABS: Hematocrit 39.9 % (37.0-47.0); Hemoglobin 13.5 g/dL (12.0-16.0); Mean Corp Hgb Conc. 33.8 g/dL (33.0-37.0); Mean Corpuscular Hgb 28.2 pg (27.0-31.0); Mean Corpuscular Volume 83.3 fL (81.0-99.0); Mean Platelet Volume 9.3 fL (7.4-10.4); Platelet Count 253 10^3/uL (130-400); Red Blood Cell Count 4.79 10^6/uL (4.20-5.40); Red Cell Dist. Width 12.4 % (11.5-14.5); White Blood Cell Count 5.9 10^3/uL (4.8-10.8)
[2024-11-10 10:21] LABS: Blood Urea Nitrogen 10 mg/dl (7-17); Calcium 9.1 mg/dl (8.4-10.2); Carbon Dioxide 21 mmol/L (22-30); Chloride 107 mmol/L (98-107); Estimated Creatinine Clearance 80 ml/min; Glucose 97 mg/dl (70-99); Magnesium 2.2 mg/dl (1.6-2.3); Potassium 3.9 mmol/L (3.5-5.1); Sodium 135 mmol/L (135-145); eGFR > 60.00
--- NOTE | 2024-11-10 12:08 | W.PN.HOSP.TC ---
Today's Communication/Plan
-
see A/P
Assessment / Plan
Assessment / Plan
Assessment/Plan:
# Hallucinations suspect d/t anticholinergic effect from multiple medications including Scopolamine patch and Hydroxyzine
# Altered Mental Status, Acute TME, resolved
hallucinations/AMS likely 2/2 polypharmacy
Belbuca discontinued. Scopolamine patch discontinued
MS returned to baseline, AOx3
Follow for clinical improvement.
Home oxycodone changed from prn back to scheduled with patient reports improvement in pain.
# Cough, Sore Throat, Fatigue on 11/09/24
# Diarrhea on 11/09/24
Symptoms 2/2 influenza
Started tamiflu, cont
# History of Prolonged QTc
QTc 473 from EKG 11/08/24
Hold Atarax
Decreased escitalopram from 20 mg to 10 mg to help with QTc
# Pelvic Fracture from Fall on 10/27
# Chronic Pain Syndrome
# Chronic Opioid Dependence
Continue pain control with standing Tylenol.
Oxycodone changed to standing order, add Senokt-S and miralax with Oxycodone.
Continue topical lidocaine.
PT / OT recc home PT vs SNF
# Mild Hypokalemia, resolved after repletion
home HCTZ on hold
# GERD
# IBS
Continue Pepcid
# Anxiety / Depression
Continue current desvenlafaxine. Escitalopram dose reduced to help with QTc.
Hydroxyzine on hold to prevent QTc prolongation
DVT Prophylaxis: SCDs. Lovenox.
GI ppx Pepcid
Code Status: Full
Dispo: PT/OT recc home PT vs SNF
Anticipated Discharge: 24 - 48 hours
Subjective/Interval History
-
Date of Service: November 10, 2024
Objective Data
-
Labs:
Laboratory Results
11/10/24
09:45
WBC 5.9
Hgb 13.5
Hct 39.9
Plt Count 253
Sodium 135
Potassium 3.9
Chloride 107
Carbon Dioxide 21 L
BUN 10
Creatinine 0.7
Glucose 97
Calcium 9.1
Vital Signs:
Vital Signs
Temp Pulse Resp BP Pulse Ox
36.6 C 98 16 133/68 93
11/10/24 07:26 11/10/24 07:26 11/10/24 07:26 11/10/24 07:26 11/10/24 07:26
I&O
11/09/24 11/10/24 11/11/24
06:59 06:59 06:59
Intake Total 1200 / 1200 1160 / 1160
Output Total 100 / 100
Balance 1200 / 1200 1160 / 1160 -100 / -100
Review of Systems
-
History Source: Patient
All other systems: Reviewed and negative
Physical Exam
-
General: Well Developed, Well Nourished, No Apparent Distress, Comfortable and Appears Chronically Ill
HEENT: Normocephalic and Atraumatic
Respiratory: Clear to Auscultation and Non Labored Respirations; Negative Accessory Resp Muscle Use
Cardiac: Regular Rhythm and S1/S2
GI: Soft, Nontender and Nondistended
Neuro: Awake and Alert
Psych: Calm and Intact Judgement/Insight
Data Reviewed
-
Labs: Labs Reviewed by me
--- NOTE | 2024-11-10 12:55 | PTCARENOTE ---
pt refusing to get OOB. reports loose stools attending notified. CB in reach
[2024-11-10 15:25] VITALS: BP 115/66
[2024-11-10] MEDS: ROBITUSSIN 100 MG PO ×2 (15:27→20:34)
[2024-11-10] MEDS: LOVENOX 40 MG SC (17:26)
[2024-11-10 23:00] VITALS: BP 131/75
[2024-11-11] MEDS: DILAUDID 1 MG PO ×4 (02:28→21:05)
[2024-11-11] MEDS: ROXICODONE 10 MG PO ×4 (05:42→23:29)
[2024-11-11] MEDS: SYNTHROID 100 MCG PO (05:42)
[2024-11-11 07:49] LABS: Hematocrit 39.9 % (37.0-47.0); Hemoglobin 13.5 g/dL (12.0-16.0); Mean Corp Hgb Conc. 33.8 g/dL (33.0-37.0); Mean Corpuscular Hgb 28.9 pg (27.0-31.0); Mean Corpuscular Volume 85.4 fL (81.0-99.0); Mean Platelet Volume 8.8 fL (7.4-10.4); Platelet Count 231 10^3/uL (130-400); Red Blood Cell Count 4.67 10^6/uL (4.20-5.40); Red Cell Dist. Width 12.6 % (11.5-14.5); White Blood Cell Count 4.6 10^3/uL (4.8-10.8)
[2024-11-11 08:00] VITALS: BP 160/79
[2024-11-11 08:21] LABS: Blood Urea Nitrogen 8 mg/dl (7-17); Calcium 9.1 mg/dl (8.4-10.2); Carbon Dioxide 22 mmol/L (22-30); Chloride 105 mmol/L (98-107); Estimated Creatinine Clearance 94 ml/min; Glucose 90 mg/dl (70-99); Magnesium 2.2 mg/dl (1.6-2.3); Potassium 4.1 mmol/L (3.5-5.1); Sodium 136 mmol/L (135-145); eGFR > 60.00
[2024-11-11] MEDS: TYLENOL 1000 MG PO ×3 (08:38→23:29)
[2024-11-11] MEDS: LEXAPRO 10 MG PO (08:39)
[2024-11-11] MEDS: CLARITIN 10 MG PO (08:39)
[2024-11-11] MEDS: PRISTIQ 50 MG PO (08:39)
[2024-11-11] MEDS: PEPCID 20 MG PO ×2 (08:39→21:08)
[2024-11-11] MEDS: TAMIFLU 75 MG PO ×2 (08:39→21:07)
[2024-11-11] MEDS: LIDOCAINE 4% PATCH TOPICAL ×2 (08:40→21:08)
[2024-11-11] MEDS: ROBITUSSIN 100 MG PO ×3 (08:43→21:02)
--- NOTE | 2024-11-11 10:19 | W.PN.HOSP.TC ---
Today's Communication/Plan
-
see A/P
Assessment / Plan
Assessment / Plan
Assessment/Plan:
# Hallucinations suspect d/t anticholinergic effect from multiple medications including Scopolamine patch and Hydroxyzine
# Altered Mental Status, Acute TME, resolved
hallucinations/AMS likely 2/2 polypharmacy
Belbuca discontinued. Scopolamine patch discontinued
MS returned to baseline, AOx3
Follow for clinical improvement.
Home oxycodone changed from prn back to scheduled with patient reports improvement in pain.
# Cough, Sore Throat, Fatigue on 11/09/24
# Diarrhea on 11/09/24
Symptoms 2/2 influenza
Started tamiflu, cont
# History of Prolonged QTc
QTc 473 from EKG 11/08/24
Hold Atarax
Decreased escitalopram from 20 mg to 10 mg to help with QTc
# Pelvic Fracture from Fall on 10/27
# Chronic Pain Syndrome
# Chronic Opioid Dependence
Continue pain control with standing Tylenol.
Oxycodone changed to standing order, add Senokt-S and miralax with Oxycodone.
Continue topical lidocaine.
PT / OT recc home PT vs SNF
# Mild Hypokalemia, resolved after repletion
home HCTZ on hold
# GERD
# IBS
Continue Pepcid
# Anxiety / Depression
Continue current desvenlafaxine. Escitalopram dose reduced to help with QTc.
Hydroxyzine on hold to prevent QTc prolongation
DVT Prophylaxis: SCDs. Lovenox.
GI ppx Pepcid
Code Status: Full
Dispo: PT/OT recc home PT vs SNF. Per CM, Discharge to SNF/rehab once bed found and precert received.
Anticipated Discharge: 24 - 48 hours
Subjective/Interval History
-
Date of Service: November 11, 2024
Objective Data
-
Labs:
Laboratory Results
11/11/24
07:29
WBC 4.6 L
Hgb 13.5
Hct 39.9
Plt Count 231
Sodium 136
Potassium 4.1
Chloride 105
Carbon Dioxide 22
BUN 8
Creatinine 0.6
Glucose 90
Calcium 9.1
Vital Signs:
Vital Signs
Temp Pulse Resp BP Pulse Ox
36.8 C 71 18 160/79 99
11/11/24 08:00 11/11/24 08:00 11/11/24 08:00 11/11/24 08:00 11/11/24 08:00
I&O
11/10/24 11/11/24 11/12/24
06:59 06:59 06:59
Intake Total 1160 / 1160 830 / 830
Output Total 350 / 350
Balance 1160 / 1160 480 / 480
Review of Systems
-
History Source: Patient
All other systems: Reviewed and negative
Physical Exam
-
General: Well Developed, Well Nourished, No Apparent Distress, Comfortable and Appears Chronically Ill
HEENT: Normocephalic and Atraumatic
Respiratory: Clear to Auscultation and Non Labored Respirations; Negative Accessory Resp Muscle Use
Cardiac: Regular Rhythm and S1/S2
GI: Soft, Nontender and Nondistended
Neuro: Awake and Alert
Psych: Calm and Intact Judgement/Insight
Data Reviewed
-
Labs: Labs Reviewed by me
[2024-11-11 16:05] VITALS: BP 135/79
[2024-11-11] MEDS: LOVENOX 40 MG SC (17:37)
[2024-11-11 23:30] VITALS: BP 160/82
[2024-11-12] MEDS: COMPAZINE 5 MG IV (00:52)
--- NOTE | 2024-11-12 01:22 | PTCARENOTE ---
Pt stated to staff that she was throwing up. Spit present in basin w/o bile. PHLEBOTOMIST SUPERVISOR/INSTRUCTOR notified about nausea, Compazine ordered and given. Plan of care ongoing.
[2024-11-12] MEDS: SYNTHROID 100 MCG PO (05:28)
[2024-11-12] MEDS: ROXICODONE 10 MG PO ×4 (05:29→23:39)
[2024-11-12 07:23] VITALS: BP 101/65
[2024-11-12] MEDS: CLARITIN 10 MG PO (08:29)
[2024-11-12] MEDS: PEPCID 20 MG PO ×2 (08:29→21:35)
[2024-11-12] MEDS: PRISTIQ 50 MG PO (08:29)
[2024-11-12] MEDS: TAMIFLU 75 MG PO ×2 (08:29→21:35)
[2024-11-12] MEDS: LIDOCAINE 4% PATCH TOPICAL ×2 (08:30→21:35)
[2024-11-12] MEDS: LEXAPRO 10 MG PO (08:30)
[2024-11-12] MEDS: TYLENOL 1000 MG PO ×3 (08:30→23:39)
[2024-11-12 10:40] LABS: Blood Urea Nitrogen 11 mg/dl (7-17); Calcium 8.6 mg/dl (8.4-10.2); Carbon Dioxide 19 mmol/L (22-30); Chloride 106 mmol/L (98-107); Estimated Creatinine Clearance 94 ml/min; Glucose 82 mg/dl (70-99); Magnesium 2.2 mg/dl (1.6-2.3); Potassium 3.7 mmol/L (3.5-5.1); Sodium 135 mmol/L (135-145); eGFR > 60.00
[2024-11-12 10:48] LABS: Hematocrit 39.7 % (37.0-47.0); Hemoglobin 13.3 g/dL (12.0-16.0); Mean Corp Hgb Conc. 33.5 g/dL (33.0-37.0); Mean Corpuscular Hgb 28.5 pg (27.0-31.0); Mean Platelet Volume 9.9 fL (7.4-10.4); Platelet Count 278 10^3/uL (130-400); Red Blood Cell Count 4.67 10^6/uL (4.20-5.40); Red Cell Dist. Width 12.7 % (11.5-14.5); White Blood Cell Count 4.8 10^3/uL (4.8-10.8)
--- NOTE | 2024-11-12 10:48 | W.PN.HOSP.TC ---
Today's Communication/Plan
-
discharge planning
Assessment / Plan
Assessment / Plan
Assessment/Plan:
# Hallucinations suspect d/t anticholinergic effect from multiple medications including Scopolamine patch and Hydroxyzine
# Altered Mental Status, Acute TME, resolved
hallucinations/AMS likely 2/2 polypharmacy
Belbuca discontinued. Scopolamine patch discontinued
MS returned to baseline, AOx3
Follow for clinical improvement.
Home oxycodone changed from prn back to scheduled with patient reports improvement in pain.
# Cough, Sore Throat, Fatigue on 11/09/24
# Diarrhea on 11/09/24
Symptoms 2/2 influenza
Started tamiflu, cont for 5 days
# History of Prolonged QTc
QTc 473 from EKG 11/08/24
Hold Atarax
Decreased escitalopram from 20 mg to 10 mg to help with QTc
# Pelvic Fracture from Fall on 10/27
# Chronic Pain Syndrome
# Chronic Opioid Dependence
Continue pain control with standing Tylenol, Oxycodone changed to standing order, PO Dilaudid PRN
added Senokt-S and miralax PRN with opiate use.
Continue topical lidocaine.
PT / OT recc home PT vs SNF
# Mild Hypokalemia, resolved after repletion
home HCTZ on hold
# GERD
# IBS
Continue Pepcid
# Anxiety / Depression
Continue current desvenlafaxine. Escitalopram dose reduced to help with QTc.
Hydroxyzine on hold to prevent QTc prolongation
DVT Prophylaxis: SCDs. Lovenox.
GI ppx Pepcid
Code Status: Full
Dispo: PT/OT recc home PT vs SNF. Per CM, Discharge to SNF/rehab once bed found and precert received.
Anticipated Discharge: Within 24 hours
Subjective/Interval History
-
Date of Service: November 12, 2024
Objective Data
-
Labs:
Laboratory Results
11/12/24
07:36
WBC Pending
Hgb Pending
Hct Pending
Plt Count Pending
Sodium 135
Potassium 3.7
Chloride 106
Carbon Dioxide 19 L
BUN 11
Creatinine 0.6
Glucose 82
Calcium 8.6
Vital Signs:
Vital Signs
Temp Pulse Resp BP Pulse Ox
36.7 C 69 17 101/65 96
11/12/24 07:23 11/12/24 07:23 11/12/24 07:23 11/12/24 07:23 11/12/24 07:23
I&O
11/11/24 11/12/24 11/13/24
06:59 06:59 06:59
Intake Total 830 / 830 960 / 960
Output Total 350 / 350
Balance 480 / 480 960 / 960
Review of Systems
-
History Source: Patient
All other systems: Reviewed and negative
Physical Exam
-
General: Well Developed, Well Nourished, No Apparent Distress, Comfortable and Appears Chronically Ill
HEENT: Normocephalic and Atraumatic
Respiratory: Clear to Auscultation and Non Labored Respirations; Negative Accessory Resp Muscle Use
Cardiac: Regular Rhythm and S1/S2
GI: Soft, Nontender and Nondistended
Neuro: Awake and Alert
Psych: Calm and Intact Judgement/Insight
Data Reviewed
-
Labs: Labs Reviewed by me
[2024-11-12 13:41] VITALS: BP 141/80; PULSE 76; O2SAT 98
[2024-11-12 15:12] VITALS: BP 121/70
--- NOTE | 2024-11-12 15:13 | CM ---
CM met with patient to discuss discharge plan; per Attending, patient may be stable for discharge tomorrow
CM requested that PT re-evaluate patient in the morning to support disposition decision (return to [facility] vs go to SNF)
[facility] accepted referrals
Patient has concerns about her pain management when she is discharged; Attending notified
[2024-11-12] MEDS: LOVENOX 40 MG SC (17:27)
[2024-11-12] MEDS: DILAUDID 1 MG PO (21:33)
[2024-11-12 23:49] VITALS: BP 135/80
[2024-11-13] MEDS: DILAUDID 1 MG PO ×3 (03:34→18:17)
[2024-11-13] MEDS: ROXICODONE 10 MG PO ×4 (06:01→23:36)
[2024-11-13] MEDS: SYNTHROID 100 MCG PO (06:01)
[2024-11-13 07:08] VITALS: BP 114/63
[2024-11-13 08:13] LABS: Hematocrit 39.7 % (37.0-47.0); Hemoglobin 13.6 g/dL (12.0-16.0); Mean Corp Hgb Conc. 34.3 g/dL (33.0-37.0); Mean Corpuscular Hgb 28.8 pg (27.0-31.0); Mean Corpuscular Volume 84.1 fL (81.0-99.0); Mean Platelet Volume 9.7 fL (7.4-10.4); Platelet Count 278 10^3/uL (130-400); Red Blood Cell Count 4.72 10^6/uL (4.20-5.40); Red Cell Dist. Width 12.4 % (11.5-14.5); White Blood Cell Count 4.6 10^3/uL (4.8-10.8)
[2024-11-13] MEDS: CLARITIN 10 MG PO (08:35)
[2024-11-13] MEDS: LEXAPRO 10 MG PO (08:35)
[2024-11-13] MEDS: PEPCID 20 MG PO ×2 (08:35→19:52)
[2024-11-13] MEDS: LIDOCAINE 4% PATCH TOPICAL ×2 (08:35→19:52)
[2024-11-13] MEDS: TAMIFLU 75 MG PO ×2 (08:35→19:52)
[2024-11-13] MEDS: TYLENOL 1000 MG PO ×3 (08:35→23:37)
[2024-11-13] MEDS: PRISTIQ 50 MG PO (08:35)
[2024-11-13 09:11] LABS: Blood Urea Nitrogen 13 mg/dl (7-17); Calcium 8.8 mg/dl (8.4-10.2); Carbon Dioxide 18 mmol/L (22-30); Chloride 106 mmol/L (98-107); Estimated Creatinine Clearance 94 ml/min; Glucose 92 mg/dl (70-99); Magnesium 2.1 mg/dl (1.6-2.3); Potassium 3.8 mmol/L (3.5-5.1); Sodium 135 mmol/L (135-145); eGFR > 60.00
--- NOTE | 2024-11-13 11:28 | W.PN.HOSP.TC ---
Today's Communication/Plan
-
dispo planning
Assessment / Plan
Assessment / Plan
Assessment/Plan:
# Hallucinations suspect d/t anticholinergic effect from multiple medications including Scopolamine patch and Hydroxyzine
# Altered Mental Status, Acute TME, resolved
hallucinations/AMS likely 2/2 polypharmacy
Belbuca discontinued. Scopolamine patch discontinued
MS returned to baseline, AOx3
Follow for clinical improvement.
Home oxycodone changed from prn back to scheduled with patient reports improvement in pain.
Dilaudid 1 mg Q6H PRN for breakthrough pain
Pt requesting increasing pain meds for breakthrough, which I do NOT think is necessary. She was confused on admission 2/2 polypharmacy, and now AOx3.
I recc to continue current pain management without overprescribing. Informed pt that she can follow up with her pain management doctor outpt.
# Cough, Sore Throat, Fatigue on 11/09/24
# Diarrhea on 11/09/24
Symptoms 2/2 influenza
Started tamiflu, cont for 5 days total
# History of Prolonged QTc
QTc 473 from EKG 11/08/24
Hold Atarax
Decreased escitalopram from 20 mg to 10 mg to help with QTc
# Pelvic Fracture from Fall on 10/27
# Chronic Pain Syndrome
# Chronic Opioid Dependence
Continue pain control with standing Tylenol, Oxycodone changed to standing order, PO Dilaudid PRN
added Senokt-S and miralax PRN with opiate use.
Continue topical lidocaine.
PT / OT recc home PT vs SNF
# Mild Hypokalemia, resolved after repletion
home HCTZ on hold
BP stable
# GERD
# IBS
Continue Pepcid
# Anxiety / Depression
Continue current desvenlafaxine. Escitalopram dose reduced to help with QTc.
Hydroxyzine on hold to prevent QTc prolongation
DVT Prophylaxis: SCDs. Lovenox.
GI ppx Pepcid
Code Status: Full
Dispo: PT/OT recc home PT vs SNF. Per CM, Discharge to SNF/rehab once bed found and precert received.
Anticipated Discharge: Within 24 hours
Subjective/Interval History
-
Date of Service: November 13, 2024
Objective Data
-
Labs:
Laboratory Results
11/13/24
07:21
WBC 4.6 L
Hgb 13.6
Hct 39.7
Plt Count 278
Sodium 135
Potassium 3.8
Chloride 106
Carbon Dioxide 18 L
BUN 13
Creatinine 0.6
Glucose 92
Calcium 8.8
Vital Signs:
Vital Signs
Temp Pulse Resp BP Pulse Ox
36.7 C 67 18 114/63 97
11/13/24 07:08 11/13/24 07:08 11/13/24 07:08 11/13/24 07:08 11/13/24 07:08
I&O
11/12/24 11/13/24 11/14/24
06:59 06:59 06:59
Intake Total 960 / 960 1260 / 1260
Balance 960 / 960 1260 / 1260
Review of Systems
-
History Source: Patient
All other systems: Reviewed and negative
Physical Exam
-
General: Well Developed, Well Nourished, No Apparent Distress, Comfortable and Appears Chronically Ill
HEENT: Normocephalic and Atraumatic
Respiratory: Clear to Auscultation and Non Labored Respirations; Negative Accessory Resp Muscle Use
Cardiac: Regular Rhythm and S1/S2
GI: Soft, Nontender and Nondistended
Neuro: Awake and Alert
Psych: Calm and Intact Judgement/Insight
Data Reviewed
-
Labs: Labs Reviewed by
[2024-11-13] MEDS: MIRALAX 17 GRAMS PO (11:54)
--- NOTE | 2024-11-13 12:34 | PTCARENOTE ---
Pt frustrated. Pt informed this RN that pain is not controlled. MD made aware.
[2024-11-13 15:28] VITALS: BP 126/78
--- NOTE | 2024-11-13 17:02 | CM ---
Spoke with Georgette from [facility] who confirmed that she can take patient and would have a bed tomorrow. Placed a call to [facility] and spoke with Juju who also stated that they have a bed tomorrow pending auth.
Spoke with patient who stated that she would prefer [facility], however she does not want to go anywhere without speaking to someone from the facility first to review financial questions and logistics of the facility.
As patient stated that she would prefer [facility]. Spoke with Juju again who stated that she is going to have someone from the facility f/u with her.
Plan: Case management will continue to follow and assist with discharge planning. SNF vrs back to .
[2024-11-13] MEDS: LOVENOX 40 MG SC (17:17)
[2024-11-13 23:58] VITALS: BP 137/70
[2024-11-14] MEDS: DILAUDID 1 MG PO ×4 (00:50→19:26)
--- NOTE | 2024-11-14 04:52 | DOWNTIME ---
There was a [employer] Downtime on 11/14/2024 from 0100 to 11/15/2023 at 0420 . Downtime documentation of patient's care, including medication administrations, has been reconciled in the electronic record per guidelines. Refer to the
patient's paper chart under the miscellaneous tab to see printed paper medication records and downtime forms.
[2024-11-14] MEDS: ROXICODONE 10 MG PO ×4 (05:53→23:15)
[2024-11-14] MEDS: SYNTHROID 100 MCG PO (05:53)
[2024-11-14 06:47] LABS: Hematocrit 39.6 % (37.0-47.0); Hemoglobin 13.4 g/dL (12.0-16.0); Mean Corp Hgb Conc. 33.8 g/dL (33.0-37.0); Mean Corpuscular Hgb 28.5 pg (27.0-31.0); Mean Corpuscular Volume 84.1 fL (81.0-99.0); Mean Platelet Volume 9.2 fL (7.4-10.4); Platelet Count 280 10^3/uL (130-400); Red Blood Cell Count 4.71 10^6/uL (4.20-5.40); Red Cell Dist. Width 12.5 % (11.5-14.5); White Blood Cell Count 4.7 10^3/uL (4.8-10.8)
[2024-11-14 07:09] LABS: Blood Urea Nitrogen 12 mg/dl (7-17); Calcium 9.1 mg/dl (8.4-10.2); Carbon Dioxide 21 mmol/L (22-30); Chloride 107 mmol/L (98-107); Estimated Creatinine Clearance 94 ml/min; Glucose 93 mg/dl (70-99); Sodium 136 mmol/L (135-145); eGFR > 60.00
[2024-11-14 07:21] VITALS: BP 105/57
[2024-11-14] MEDS: TYLENOL 1000 MG PO ×3 (08:42→23:14)
[2024-11-14] MEDS: PEPCID 20 MG PO ×2 (08:42→20:26)
[2024-11-14] MEDS: TAMIFLU 75 MG PO ×2 (08:42→20:27)
[2024-11-14] MEDS: CLARITIN 10 MG PO (08:42)
[2024-11-14] MEDS: PRISTIQ 50 MG PO (08:42)
[2024-11-14] MEDS: LIDOCAINE 4% PATCH TOPICAL ×3 (08:42→19:29)
[2024-11-14] MEDS: LEXAPRO 10 MG PO (08:42)
--- NOTE | 2024-11-14 10:22 | W.PN.HOSP.TC ---
Addendum entered and electronically signed by Meaghan Ying MD 11/14/24 13:22:
total DC time 38 min
Original Note:
Today's Communication/Plan
-
DC today
Assessment / Plan
Assessment / Plan
Assessment/Plan:
# Hallucinations suspect d/t anticholinergic effect from multiple medications including Scopolamine patch and Hydroxyzine
# Altered Mental Status, Acute TME, resolved
hallucinations/AMS likely 2/2 polypharmacy
Belbuca discontinued. Scopolamine patch discontinued
MS returned to baseline, AOx3
Follow for clinical improvement.
Home oxycodone changed from prn back to scheduled with patient reports improvement in pain.
Dilaudid 1 mg adjusted to Q5H PRN for breakthrough pain
# Cough, Sore Throat, Fatigue on 11/09/24
# Diarrhea on 11/09/24
Symptoms 2/2 influenza
Started tamiflu, cont for 5 days total
# History of Prolonged QTc
Stop further Atarax
Decreased escitalopram from 20 mg to 10 mg to help with QTc
# Pelvic Fracture from Fall on 10/27
# Chronic Pain Syndrome
# Chronic Opioid Dependence
Continue pain control with standing Tylenol, Oxycodone changed to standing order, PO Dilaudid PRN
added Senokt-S and miralax PRN with opiate use.
Continue topical lidocaine.
PT / OT recc home PT vs SNF
# Mild Hypokalemia, resolved after repletion
home HCTZ on hold
BP stable
# GERD
# IBS
Continue Pepcid
# Anxiety / Depression
Continue current desvenlafaxine. Escitalopram dose reduced to help with QTc.
Hydroxyzine on hold to prevent QTc prolongation
DVT Prophylaxis: SCDs. Lovenox.
GI ppx Pepcid
Code Status: Full
Dispo: PT/OT recc home PT vs SNF. Per CM, Discharge to SNF/rehab once bed found and precert received.
DW CM
Anticipated Discharge: Today
Subjective/Interval History
-
Date of Service: November 14, 2024
Objective Data
-
Labs:
Laboratory Results
11/14/24
06:19
WBC 4.7 L
Hgb 13.4
Hct 39.6
Plt Count 280
Sodium 136
Potassium 4.0
Chloride 107
Carbon Dioxide 21 L
BUN 12
Creatinine 0.6
Glucose 93
Calcium 9.1
Vital Signs:
Vital Signs
Temp Pulse Resp BP Pulse Ox
36.7 C 66 16 105/57 98
11/14/24 07:21 11/14/24 07:21 11/14/24 07:21 11/14/24 07:21 11/14/24 07:21
I&O
11/13/24 11/14/24 11/15/24
06:59 06:59 06:59
Intake Total 1260 / 1260 960 / 960
Balance 1260 / 1260 960 / 960
Review of Systems
-
History Source: Patient
All other systems: Reviewed and negative
Physical Exam
-
General: Well Developed, Well Nourished, No Apparent Distress and Comfortable
HEENT: Normocephalic and Atraumatic
Respiratory: Non Labored Respirations; Negative Accessory Resp Muscle Use
Neuro: Awake and Alert
Psych: Calm and Intact Judgement/Insight
Data Reviewed
-
Labs: Labs Reviewed by me
--- NOTE | 2024-11-14 12:57 | W.DCSUMMARY ---
Discharge Summary
Discharge Data
Date of Admission: 11/04/24
Date of Discharge: 11/14/24
-
Pending Results: No
Hospital Course
Principal Diagnosis:
Altered mental status and visual hallucinations likely due to polypharmacy and anticholinergic effect from multiple medications such as scopolamine patch and hydroxyzine
Influenza A infection. Completed Tamiflu during hospital stay.
Chronic Diagnoses:�
Pelvic Fracture from Fall on 10/27/24
Chronic Pain Syndrome
Chronic Opioid Dependence
GERD
IBS
Anxiety / Depression
Consultations:�
None
Procedures:�
None
Clinical course:�
This is a 69-year-old female, with past medical history as stated above, who presented with altered mental status and visual hallucination.
Problem 1:
Altered mental status and visual hallucinations likely due to polypharmacy and anticholinergic effect from multiple medications such as scopolamine patch and hydroxyzine.
Her LOIN P[employer]ER Belbuca, scopolamine patch and Atarax were discontinued this admission.
Her mental status improved and returned to baseline, AO x 3.
She can continue with home oxycodone 10 mg every 6 hours for acute on chronic pain in setting of recent pelvic fracture.
She can continue with 1 mg Dilaudid as needed for severe breakthrough pain.
Problem 2:
Influenza A infection.
Completed Tamiflu during hospital stay.
Problem 3:
Prolonged QTc, improved after discontinuation of Atarax and decreasing escitalopram dose from 20 mg to 10 mg.
Her last QTc from EKG dated on 11/08/2024 showed a QTc interval of 473.
As for the rest of her medical problems, they were stable during her hospital stay.
Discharge Plan
-
Patient Disposition: Residential/SNF
Discharge Diagnosis/Procedures: Hallucinations/confusion/Altered Mental Status on admission due to polypharmacy- resolved;
Cough/Sore Throat due to influenza infection;
Pelvic Fracture from Fall on 3/1;
Chronic Pain Syndrome
Chronic Opioid Dependence
Condition: Fair
Diet: As tolerated
Activity: As tolerated
Driving Restrictions: Not until seen by your Dr
Referrals:
Betty Lora CRNP [Family Provider] - in less than 1 week
Additional Discharge Medication Instructions: Belbuca discontinued.
Scopolamine patch discontinued.
Atarax discontinued (prolonged QTC)
Decreased escitalopram from 20 mg to 10 mg to help with QTc interval.
Stopped HCTZ (your blood pressure stable without med)
Oxycodone 10 mg every 6 hours [id number] for pain control, Dilaudid 1 mg as needed for severe breakthrough Pain.
Continue bowel regimen with Senokot-S and MiraLAX while on chronic opioid.
Prescriptions:
New
escitalopram oxalate 10 mg Tablet
10 mg PO DAILY Qty: 30 0RF
acetaminophen [Tylenol Extra Strength] 500 mg Tablet
1,000 mg PO Q8 Qty: 60 0RF
hydromorphone 2 mg Tablet
1 mg PO Q5HPRN PRN (Reason: severe breakthrough pain) Qty: 5 0RF
polyethylene glycol 3350 17 gram Powder In Packet
17 g PO DAILYPRN PRN (Reason: constipation) Qty: 14 0RF
sennosides-docusate sodium 8.6-50 mg Tablet
1 tab PO BIDPRN PRN (Reason: constipation) Qty: 30 0RF
Continued
loratadine 10 MG tablet
10 mg PO DAILY
omeprazole 40 mg Capsule,Delayed Release(Dr/Ec)
40 mg PO BID
levothyroxine [Synthroid] 100 mcg Tablet
100 mcg PO DAILY
desvenlafaxine succinate 50 mg Tablet Extended Release 24 Hr
50 mg PO DAILY
famotidine [Pepcid] 40 mg Tablet
40 mg PO BID
polyethylene glycol 3350 17 gram Powder In Packet
17 g PO DAILY Qty: 30 0RF
acetaminophen 325 mg Tablet
650 mg PO Q4H PRN (Reason: Fever)
lidocaine 5 % Adhesive Patch,Medicated
2 patch TOPICAL BID
Rx Instructions:
Apply to both shoulders
Changed
oxycodone 10 mg tablet
10 mg PO Q6H Qty: 7 0RF
Discontinued
hydroxyzine HCl 50 mg Tablet
50 mg PO HS
baclofen 10 mg Tablet
10 mg PO Q8H PRN (Reason: Pain)
hydroxyzine HCl 25 mg Tablet
25 mg PO DAILY
escitalopram oxalate [Lexapro] 20 mg Tablet
20 mg PO DAILY
hydrochlorothiazide 12.5 mg Tablet
12.5 mg PO DAILY
scopolamine base 1 mg over 3 days Patch 3 Day
1 patch TRANSDERMAL Q48H
buprenorphine HCl [Belbuca] 300 mcg Film
300 mcg BUCCAL Q12H
Discharge Orders:
Discharge Patient (As Directed); Ordered 11/14/24
Ordered By: Meaghan Ying
Discharge Date and Time
Print Language: MAORI
[2024-11-14 15:21] VITALS: BP 133/74
--- NOTE | 2024-11-14 16:04 | CM ---
Spoke with patient who stated that she believes that she has used up her SNF benefit as she was at [facility] paying privately. She stated that she would like to go to [facility] and is willing to pay privately for bed.
Placed a call to Ju[facility] in admissions who stated that she will have a bed for patient tomorrow. She stated that auth should be attempted even though patient may be out of benefit just in case she has her days regenerated.
Will send clinical to insurance and await auth.
Plan: Case management will continue to follow and assist with discharge planning. Will attempt auth. Either way patient will transfer, private pay or covered by insurance.
[2024-11-14] MEDS: LOVENOX 40 MG SC (17:08)
[2024-11-14 23:31] VITALS: BP 124/66
[2024-11-15] MEDS: DILAUDID 1 MG PO ×3 (00:52→14:29)
[2024-11-15] MEDS: ROXICODONE 10 MG PO ×4 (05:33→23:20)
[2024-11-15] MEDS: SYNTHROID 100 MCG PO (05:33)
[2024-11-15 06:55] LABS: Hematocrit 39.1 % (37.0-47.0); Hemoglobin 13.5 g/dL (12.0-16.0); Mean Corp Hgb Conc. 34.5 g/dL (33.0-37.0); Mean Corpuscular Hgb 28.7 pg (27.0-31.0); Mean Platelet Volume 9.4 fL (7.4-10.4); Platelet Count 277 10^3/uL (130-400); Red Blood Cell Count 4.71 10^6/uL (4.20-5.40); Red Cell Dist. Width 12.6 % (11.5-14.5); White Blood Cell Count 4.8 10^3/uL (4.8-10.8)
[2024-11-15 07:05] LABS: Blood Urea Nitrogen 13 mg/dl (7-17); Carbon Dioxide 23 mmol/L (22-30); Chloride 107 mmol/L (98-107); Estimated Creatinine Clearance 94 ml/min; Glucose 91 mg/dl (70-99); Potassium 3.8 mmol/L (3.5-5.1); Sodium 136 mmol/L (135-145); eGFR > 60.00
[2024-11-15 07:32] VITALS: BP 123/62
[2024-11-15] MEDS: CLARITIN 10 MG PO (09:07)
[2024-11-15] MEDS: PRISTIQ 50 MG PO (09:07)
[2024-11-15] MEDS: LEXAPRO 10 MG PO (09:08)
[2024-11-15] MEDS: PEPCID 20 MG PO ×2 (09:08→22:04)
[2024-11-15] MEDS: TYLENOL 1000 MG PO ×3 (09:08→23:20)
[2024-11-15] MEDS: LIDOCAINE 4% PATCH TOPICAL ×2 (09:16→22:04)
--- NOTE | 2024-11-15 10:34 | W.PN.HOSP.TC ---
Today's Communication/Plan
-
see A/P
Assessment / Plan
Assessment / Plan
Assessment/Plan:
# Hallucinations suspect d/t anticholinergic effect from multiple medications including Scopolamine patch and Hydroxyzine
# Altered Mental Status, Acute TME, resolved
hallucinations/AMS likely 2/2 polypharmacy
Belbuca discontinued. Scopolamine patch discontinued
MS returned to baseline, AOx3
Follow for clinical improvement.
Home oxycodone changed from prn back to scheduled with patient reports improvement in pain.
Dilaudid 1 mg adjusted to Q5H PRN for breakthrough pain
Pt c/o severe lower back pain, check XR for now, could consider CT vs MRI
# Cough, Sore Throat, Fatigue on 11/09/24
# Diarrhea on 11/09/24
Symptoms 2/2 influenza, resolved
s/p tamiflu x5 days
# History of Prolonged QTc
Stopped further Atarax
Decreased escitalopram from 20 mg to 10 mg to help with QTc
# Pelvic Fracture from Fall on 10/27
# Chronic Pain Syndrome
# Chronic Opioid Dependence
Continue pain control with standing Tylenol, Oxycodone changed to standing order, PO Dilaudid PRN
added Senokt-S and miralax PRN with opiate use.
Continue topical lidocaine.
PT / OT recc home PT vs SNF
# Mild Hypokalemia, resolved after repletion
home HCTZ on hold
BP stable
# GERD
# IBS
Continue Pepcid
# Anxiety / Depression
Continue current desvenlafaxine. Escitalopram dose reduced to help with QTc.
Hydroxyzine on hold to prevent QTc prolongation
DVT Prophylaxis: SCDs. Lovenox.
GI ppx Pepcid
Code Status: Full
Dispo: PT/OT recc home PT vs SNF. Per CM, Discharge to SNF/rehab once bed found and precert received.
DW CM
DW RN
Anticipated Discharge: Within 24 hours
Subjective/Interval History
-
Date of Service: November 15, 2024
Objective Data
-
Labs:
Laboratory Results
11/15/24
06:02
WBC 4.8
Hgb 13.5
Hct 39.1
Plt Count 277
Sodium 136
Potassium 3.8
Chloride 107
Carbon Dioxide 23
BUN 13
Creatinine 0.6
Glucose 91
Calcium 9.0
Vital Signs:
Vital Signs
Temp Pulse Resp BP Pulse Ox
36.6 C 64 16 123/62 98
11/15/24 07:32 11/15/24 07:32 11/15/24 07:32 11/15/24 07:32 11/15/24 07:32
I&O
11/14/24 11/15/24 11/16/24
06:59 06:59 06:59
Intake Total 960 / 960 720 / 720
Balance 960 / 960 720 / 720
Review of Systems
-
History Source: Patient
Musculoskeletal: Reports Joint Pain (lower back pain)
Physical Exam
-
General: Well Developed, Well Nourished, No Apparent Distress, Comfortable and Conversant
HEENT: Normocephalic and Atraumatic
Respiratory: Non Labored Respirations; Negative Accessory Resp Muscle Use
Neuro: Awake and Alert
Psych: Calm and Intact Judgement/Insight
Data Reviewed
-
Labs: Labs Reviewed by me
[2024-11-15 15:20] VITALS: BP 135/68
--- NOTE | 2024-11-15 15:57 | PTCARENOTE ---
Patient requested hospitalist contact her personal pain management DR. Pancho Valadez ([phone]) Hospitalist stated gone for the evening but will call tomorrow.
--- NOTE | 2024-11-15 16:26 | CM ---
Addendum entered by DIANA Cooper 11/15/24 16:41:
Patient updated.
Case Reference # [id number]
Original Note:
Placed a call to patient's insurance [facility] and spoke with a passenger relations representative named, Florence. He got preliminary information and then asked that all clinical be faxed to [phone]. Faxed facesheet, clinical and H&P. Florence stated that
once a determination is made, call/fax will be provided to Ref# number for case [id number]
[2024-11-15] MEDS: LOVENOX 40 MG SC (17:32)
--- NOTE | 2024-11-15 19:30 | PTCARENOTE ---
Pt requesting sedation for inability to lay flat 2/2 pain prior to MRI study. FOOD SERVICE AMBASSADOR covering house contacted, VAT RN contacted to place PIV. MRI dept updated, requesting call when ready for testing.
[2024-11-15] MEDS: ATIVAN 0.5 MG IV (19:42)
[2024-11-15] MEDS: NSS (PRESERVATIVE FREE) 0.25 ML IV (19:43)
--- NOTE | 2024-11-15 22:15 | PTCARENOTE ---
Oral care was not performed on patient because they stated that it is their preference to brush their teeth in the morning.
[2024-11-15 23:00] VITALS: BP 102/52
[2024-11-16] MEDS: DILAUDID 1 MG PO ×4 (02:00→20:00)
[2024-11-16] MEDS: ROXICODONE 10 MG PO ×4 (05:53→23:05)
[2024-11-16] MEDS: SYNTHROID 100 MCG PO (05:54)
[2024-11-16 06:38] LABS: Blood Urea Nitrogen 14 mg/dl (7-17); Carbon Dioxide 22 mmol/L (22-30); Chloride 106 mmol/L (98-107); Estimated Creatinine Clearance 94 ml/min; Glucose 93 mg/dl (70-99); Sodium 137 mmol/L (135-145); eGFR > 60.00
[2024-11-16 07:25] VITALS: BP 118/65
--- NOTE | 2024-11-16 10:12 | W.PN.HOSP.TC ---
Today's Communication/Plan
-
see A/P
Assessment / Plan
Assessment / Plan
Assessment/Plan:
# Hallucinations suspect d/t anticholinergic effect from multiple medications including Scopolamine patch and Hydroxyzine
# Altered Mental Status, Acute TME, resolved
hallucinations/AMS likely 2/2 polypharmacy
Belbuca discontinued. Scopolamine patch discontinued
MS returned to baseline, AOx3
Follow for clinical improvement.
Home oxycodone changed back to scheduled, Dilaudid 1 mg adjusted to Q4H PRN for breakthrough pain
lidocaine patch x2 to lower back
Pt c/o persistent severe lower back pain, XR noted Mild compression fracture of the L2 superior endplate,
Follow up MRI confirmed acute to subacute L2 vertebral body fracture. Retropulsion the posterior superior margin of the L2 vertebral body, extending into the anterior thecal sac with no compression of the adjacent lower spinal cord/conus. Old
compression fracture of L1 with evidence of previous vertebroplasty.
d/w vertebroplasty with pt, she states that she prefers her outpt pain specialist Dr Pancho Valadez to perform the vertebroplasty.
Discussed with Dr Pancho Valadez's office [phone]
# Cough, Sore Throat, Fatigue on 11/09/24
# Diarrhea on 11/09/24
Symptoms 2/2 influenza, resolved
s/p tamiflu x5 days
# Incidental finding of endometrium thickening with peripheral irregular enhancement.
Findings raise concern for a proliferative process of the endometrium, and endometrial carcinoma is a consideration.
check pelvis/ TV ultrasound
consider CCTV TECHNICIAN CS after US result
# History of Prolonged QTc
Stopped further Atarax
Decreased escitalopram from 20 mg to 10 mg to help with QTc
# Pelvic Fracture from Fall on 10/27
# Chronic Pain Syndrome
# Chronic Opioid Dependence
Continue pain control with standing Tylenol, Oxycodone changed to standing order, PO Dilaudid PRN
added Senokt-S and miralax PRN with opiate use.
Continue topical lidocaine.
PT / OT recc home PT vs SNF
# Mild Hypokalemia, resolved after repletion
home HCTZ on hold
BP stable
# GERD
# IBS
Continue Pepcid
# Anxiety / Depression
Continue current desvenlafaxine. Escitalopram dose reduced to help with QTc.
Hydroxyzine on hold to prevent QTc prolongation
DVT Prophylaxis: SCDs. Lovenox.
GI ppx Pepcid
Code Status: Full
Dispo: PT/OT recc home PT vs SNF. Per CM, Discharge to SNF/rehab once bed found and precert received.
DW CM office
DW RN
DW Dr Pancho Valadez's office [phone]
total time spent 51 min
Anticipated Discharge: 24 - 48 hours
Subjective/Interval History
-
Date of Service: November 16, 2024
Objective Data
-
Labs:
Laboratory Results
11/16/24
05:49
Sodium 137
Potassium 4.0
Chloride 106
Carbon Dioxide 22
BUN 14
Creatinine 0.6
Glucose 93
Calcium 9.0
Vital Signs:
Vital Signs
Temp Pulse Resp BP Pulse Ox
36.4 C 61 16 118/65 97
11/16/24 07:25 11/16/24 07:25 11/16/24 07:25 11/16/24 07:25 11/16/24 07:25
I&O
11/15/24 11/16/24 11/17/24
06:59 06:59 06:59
Intake Total 720 / 720 240 / 240
Balance 720 / 720 240 / 240
[2024-11-16] MEDS: LEXAPRO 10 MG PO (10:44)
[2024-11-16] MEDS: PEPCID 20 MG PO ×2 (10:44→20:00)
[2024-11-16] MEDS: PRISTIQ 50 MG PO (10:44)
[2024-11-16] MEDS: TYLENOL 1000 MG PO ×3 (10:45→23:07)
[2024-11-16] MEDS: LIDOCAINE 4% PATCH 2 PATCH TOPICAL ×2 (10:45→10:47)
[2024-11-16] MEDS: CLARITIN 10 MG PO (10:47)
[2024-11-16 15:33] VITALS: BP 120/68
[2024-11-16] MEDS: LOVENOX 40 MG SC (18:02)
[2024-11-16 23:00] VITALS: BP 123/72
[2024-11-17] MEDS: DILAUDID 1 MG PO (00:18)
[2024-11-17] MEDS: ZOFRAN 4 MG IV ×2 (00:24→23:31)
[2024-11-17] MEDS: ROXICODONE 10 MG PO ×4 (05:38→23:34)
[2024-11-17] MEDS: SYNTHROID 100 MCG PO (05:38)
[2024-11-17 06:32] LABS: Blood Urea Nitrogen 14 mg/dl (7-17); Calcium 8.8 mg/dl (8.4-10.2); Carbon Dioxide 22 mmol/L (22-30); Chloride 106 mmol/L (98-107); Estimated Creatinine Clearance 94 ml/min; Glucose 92 mg/dl (70-99); Potassium 4.1 mmol/L (3.5-5.1); Sodium 137 mmol/L (135-145); eGFR > 60.00
[2024-11-17 07:00] VITALS: BP 109/59
--- NOTE | 2024-11-17 07:50 | W.PN.HOSP.TC ---
Today's Communication/Plan
-
SNF placement, pain control
Assessment / Plan
Assessment / Plan
Physical Exam
General: Well Developed, Well Nourished, No Apparent Distress, Comfortable and Conversant
HEENT: Normocephalic and Atraumatic
Respiratory: Non Labored Respirations; Negative Accessory Resp Muscle Use
Neuro: Awake and Alert. Oriented x3.
Psych: Calm and Intact Judgement/Insight
Assessment/Plan
# Hallucinations suspect d/t anticholinergic effect from multiple medications including Scopolamine patch and Hydroxyzine
# Altered Mental Status, Acute TME, resolved
hallucinations/AMS likely 2/2 polypharmacy
Belbuca discontinued. Scopolamine patch discontinued
MS returned to baseline, AOx3
Follow for clinical improvement.
Home oxycodone changed back to scheduled, Dilaudid 2 mg (increased from 1 mg per patient's request and due to continued significant pain) Q4H PRN for breakthrough pain
lidocaine patch x2 to lower back
Pt c/o persistent severe lower back pain, XR noted Mild compression fracture of the L2 superior endplate,
Follow up MRI confirmed acute to subacute L2 vertebral body fracture. Retropulsion the posterior superior margin of the L2 vertebral body, extending into the anterior thecal sac with no compression of the adjacent lower spinal cord/conus. Old
compression fracture of L1 with evidence of previous vertebroplasty.
Dr. Ying discussed vertebroplasty with pt, previously patient stated that she prefers her outpt pain specialist Dr Pancho Valadez to perform the vertebroplasty, now she is open to IR doing it instead if that will expedite the process
Dr. Ying discussed with Dr Pancho Valadez's office [phone]
#New L2 compression fracture
-Dr. Ying contacted Dr. Valadez's office
-Will discuss with IR
# Cough, Sore Throat, Fatigue on 11/09/24 Secondary to Influenza
# Diarrhea on 11/09/24
Symptoms 2/2 influenza, resolved
s/p tamiflu x5 days
# Incidental finding of endometrium thickening with peripheral irregular enhancement.
Findings raise concern for a proliferative process of the endometrium, and endometrial carcinoma is a consideration.
Pelvis/ TV ultrasound -- transvaginal imaging was attempted, however was too painful for the patient due to recent prior pelvic fracture
Consider SAP BI DEVELOPER consultation
# History of Prolonged QTc
Stopped further Atarax
Decreased escitalopram from 20 mg to 10 mg to help with QTc
# Pelvic Fracture from Fall on 10/27
# Chronic Pain Syndrome
# Chronic Opioid Dependence
Continue pain control with standing Tylenol, Oxycodone changed to standing order, PO Dilaudid PRN
added Senokt-S and miralax PRN with opiate use.
Continue topical lidocaine.
PT / OT recc home PT vs SNF
# Mild Hypokalemia, resolved after repletion
home HCTZ on hold
BP stable
# GERD
# IBS
Continue Pepcid
# Anxiety / Depression
Continue current desvenlafaxine. Escitalopram dose reduced to help with QTc.
Hydroxyzine on hold to prevent QTc prolongation
DVT Prophylaxis: SCDs. Lovenox.
GI ppx Pepcid
Code Status: Full
Dispo: PT/OT recc home PT vs SNF. Per CM, Discharge to SNF/rehab once bed found and precert received.
Anticipated Discharge: > 48 hours
Subjective/Interval History
-
Date of Service: November 17, 2024
Patient was seen and examined. She reports continued chronic pain, although her right groin area pain has improved compared to ~1 week ago. She denied any other new symptoms or complaints.
Objective Data
-
Labs:
Laboratory Results
11/17/24
05:48
Sodium 137
Potassium 4.1
Chloride 106
Carbon Dioxide 22
BUN 14
Creatinine 0.6
Glucose 92
Calcium 8.8
Vital Signs:
Vital Signs
Temp Pulse Resp BP Pulse Ox
97.9 F 65 16 123/72 96
11/16/24 23:00 11/16/24 23:00 11/16/24 23:00 11/16/24 23:00 11/16/24 23:00
I&O
11/16/24 11/17/24 11/18/24
06:59 06:59 06:59
Intake Total 240 / 240 480 / 480
Balance 240 / 240 480 / 480
[2024-11-17] MEDS: CLARITIN 10 MG PO (08:32)
[2024-11-17] MEDS: LEXAPRO 10 MG PO (08:32)
[2024-11-17] MEDS: LIDOCAINE 4% PATCH 1 PATCH TOPICAL (08:33)
[2024-11-17] MEDS: LIDOCAINE 4% PATCH 2 PATCH TOPICAL (08:33)
[2024-11-17] MEDS: TYLENOL 1000 MG PO ×3 (08:34→23:34)
[2024-11-17] MEDS: PEPCID 20 MG PO ×2 (08:34→20:24)
[2024-11-17] MEDS: PRISTIQ 50 MG PO (08:34)
[2024-11-17] MEDS: DILAUDID 2 MG PO ×3 (09:51→20:23)
[2024-11-17 15:00] VITALS: BP 150/90
[2024-11-17 16:43] VITALS: BP 117/70
[2024-11-17] MEDS: LOVENOX 40 MG SC (18:28)
[2024-11-17] MEDS: MIRALAX 17 GRAMS PO (20:22)
[2024-11-17 23:00] VITALS: BP 120/64
--- NOTE | 2024-11-18 01:50 | PTCARENOTE ---
Pt c/o 04/07 back pain. PRN not due until 0223. Pt BP 140/79 HR 60. LAURENCE Frances aware. Directed to administer next PRN early.
[2024-11-18 01:54] VITALS: BP 140/79
[2024-11-18] MEDS: DILAUDID 2 MG PO ×5 (01:56→21:14)
[2024-11-18] MEDS: SYNTHROID 100 MCG PO (05:52)
[2024-11-18] MEDS: ROXICODONE 10 MG PO ×4 (05:52→23:45)
[2024-11-18 07:49] VITALS: BP 109/58
[2024-11-18] MEDS: LIDOCAINE 4% PATCH TOPICAL ×4 (07:50→08:04)
[2024-11-18] MEDS: PEPCID 20 MG PO ×2 (07:51→20:39)
[2024-11-18] MEDS: TYLENOL 1000 MG PO ×3 (07:51→23:45)
[2024-11-18] MEDS: PRISTIQ 50 MG PO (07:51)
[2024-11-18] MEDS: CLARITIN 10 MG PO (07:51)
[2024-11-18] MEDS: LEXAPRO 10 MG PO (07:51)
[2024-11-18 12:00] VITALS: BP 147/94; BP 94/78; PULSE 78; O2SAT 97
--- NOTE | 2024-11-18 13:11 | W.PN.HOSP.TC ---
Today's Communication/Plan
-
Awaiting placement
Assessment / Plan
Assessment / Plan
Physical Exam
General: Well Developed, Well Nourished, No Apparent Distress, Comfortable and Conversant
HEENT: Normocephalic and Atraumatic
Respiratory: Non Labored Respirations; Negative Accessory Resp Muscle Use
Neuro: Awake and Alert. Oriented x3.
Psych: Calm and Intact Judgement/Insight
Assessment/Plan
# Hallucinations suspect d/t anticholinergic effect from multiple medications including Scopolamine patch and Hydroxyzine
# Altered Mental Status, Acute TME, resolved
hallucinations/AMS likely 2/2 polypharmacy
Belbuca previously discontinued. Scopolamine patch previously discontinued
Mental status returned to baseline, AOx3
Follow for clinical improvement.
Home oxycodone previously changed back to scheduled, Dilaudid 2 mg (increased on 11/17/24 from 1 mg per patient's request and due to continued significant pain) Q4H PRN for breakthrough pain
lidocaine patch x2 to lower back
Pt c/o persistent severe lower back pain, XR noted Mild compression fracture of the L2 superior endplate
Follow up MRI confirmed acute to subacute L2 vertebral body fracture. Retropulsion the posterior superior margin of the L2 vertebral body, extending into the anterior thecal sac with no compression of the adjacent lower spinal cord/conus. Old
compression fracture of L1 with evidence of previous vertebroplasty.
Dr. Ying discussed vertebroplasty with pt, previously patient stated that she prefers her outpt pain specialist Dr Pancho Valadez to perform the vertebroplasty, now she is open to IR doing it instead if that will expedite the process
Dr. Ying discussed with Dr Pancho Valadez's office [phone]
#New L2 compression fracture
-Dr. Ying contacted Dr. Valadez's office
-Will discuss with IR
#Cough, Sore Throat, Fatigue on 11/09/24 Secondary to Influenza
#Diarrhea on 11/09/24
Symptoms 2/2 influenza, resolved
s/p tamiflu x5 days
#Incidental finding of endometrium thickening with peripheral irregular enhancement
Findings raise concern for a proliferative process of the endometrium, and endometrial carcinoma is a consideration.
Pelvis/ TV ultrasound -- transvaginal imaging was attempted, however was too painful for the patient due to recent prior pelvic fracture
Consider SHOP COORDINATOR consultation
#History of Prolonged QTc
Stopped further Atarax
Decreased escitalopram from 20 mg to 10 mg to help with QTc
#Pelvic Fracture from Fall on 10/27
#Chronic Pain Syndrome
#Chronic Opioid Dependence
Continue pain control with standing Tylenol, Oxycodone changed to standing order, PO Dilaudid PRN
added Senokt-S and miralax PRN with opiate use.
Continue topical lidocaine.
PT / OT recc home PT vs SNF
#Mild Hypokalemia, resolved after repletion
home HCTZ on hold
BP stable
#GERD
#IBS
Continue Pepcid
#Anxiety/Depression
Continue current desvenlafaxine. Escitalopram dose reduced to help with QTc.
Hydroxyzine on hold to prevent QTc prolongation
DVT Prophylaxis: SCDs. Lovenox.
GI ppx Pepcid
Code Status: Full
Dispo: PT/OT recc home PT vs SNF. Per CM, Discharge to SNF/rehab once bed found and precert received.
Anticipated Discharge: 24 - 48 hours
Subjective/Interval History
-
Date of Service: November 18, 2024
Patient was seen and examined. She reported acute on chronic pain overnight, and denied any other symptoms or complaints.
Objective Data
-
Vital Signs:
Vital Signs
Temp Pulse Resp BP Pulse Ox
97.8 F 60 16 109/58 98
11/18/24 07:49 11/18/24 07:49 11/18/24 07:49 11/18/24 07:49 11/18/24 07:49
I&O
11/17/24 11/18/24 11/19/24
06:59 06:59 06:59
Intake Total 480 / 480 720 / 720
Balance 480 / 480 720 / 720
[2024-11-18 15:00] VITALS: BP 146/74
[2024-11-18] MEDS: LOVENOX 40 MG SC (17:10)
[2024-11-18] MEDS: LIDOCAINE 4% PATCH 2 PATCH TOPICAL (20:39)
[2024-11-18] MEDS: ZOFRAN 4 MG IV (21:14)
[2024-11-18] MEDS: MIRALAX 17 GRAMS PO (21:24)
[2024-11-18 23:36] VITALS: BP 108/65
[2024-11-19] MEDS: DILAUDID 2 MG PO ×4 (01:15→20:45)
[2024-11-19] MEDS: SYNTHROID 100 MCG PO (06:26)
[2024-11-19] MEDS: ROXICODONE 10 MG PO ×4 (06:27→23:51)
--- NOTE | 2024-11-19 07:29 | W.PN.HOSP.TC ---
Today's Communication/Plan
-
SNF placement pending
Assessment / Plan
Assessment / Plan
Physical Exam
General: Well Developed, Well Nourished, No Apparent Distress, Comfortable and Conversant
HEENT: Normocephalic and Atraumatic
Respiratory: Clear to Auscultation Bilaterally. Non Labored Respirations; Negative Accessory Resp Muscle Use
Neuro: Awake and Alert. Oriented x3. Nonfocal/grossly intact bilaterally.
Psych: Calm and Intact Judgement/Insight
Assessment/Plan
# Hallucinations suspect d/t anticholinergic effect from multiple medications including Scopolamine patch and Hydroxyzine
# Altered Mental Status, Acute TME, resolved
hallucinations/AMS likely 2/2 polypharmacy
Belbuca previously discontinued. Scopolamine patch previously discontinued
Mental status returned to baseline, AOx3
Follow for clinical improvement.
Home oxycodone previously changed back to scheduled, Dilaudid 2 mg (increased on 11/17/24 from 1 mg per patient's request and due to continued significant pain) Q4H PRN for breakthrough pain
lidocaine patch x2 to lower back
Pt c/o persistent severe lower back pain, XR noted Mild compression fracture of the L2 superior endplate
Follow up MRI confirmed acute to subacute L2 vertebral body fracture. Retropulsion the posterior superior margin of the L2 vertebral body, extending into the anterior thecal sac with no compression of the adjacent lower spinal cord/conus. Old
compression fracture of L1 with evidence of previous vertebroplasty.
Dr. Ying discussed vertebroplasty with pt, previously patient stated that she prefers her outpt pain specialist Dr Pancho Valadez to perform the vertebroplasty, now she is open to IR doing it instead if that will expedite the process
Dr. Ying discussed with Dr Pancho Valadez's office [phone]
I discussed with IR on 11/19/24 and they mentioned they would not be able to do any inpatient vertebroplasty this week, so no need for IR consult, and recommendation was made for Dr. Valadez to do outpatient vertebroplasty
#New L2 compression fracture
-Dr. Ying contacted Dr. Valadez's office
-I discussed on 11/19/[address] Call and they mentioned they would not be able to do any inpatient vertebroplasty this week, so no need for IR consult, and recommendation was made for Dr. Valadez to do outpatient
vertebroplasty
#Cough, Sore Throat, Fatigue on 11/09/24 Secondary to Influenza
#Diarrhea on 11/09/24
Symptoms 2/2 influenza, resolved
s/p tamiflu x5 days
#Incidental finding of endometrium thickening with peripheral irregular enhancement
Findings raise concern for a proliferative process of the endometrium, and endometrial carcinoma is a consideration.
Pelvis/ TV ultrasound -- transvaginal imaging was attempted, however was too painful for the patient due to recent prior pelvic fracture
Spoke on 11/19/24 with on-call dining room busser who mentioned okay for outpatient follow-up with gynecology (Dr. Kailee Holt) in 6 weeks
#History of Prolonged QTc
Stopped further Atarax
Decreased escitalopram from 20 mg to 10 mg to help with QTc
#Pelvic Fracture from Fall on 10/27
#Chronic Pain Syndrome
#Chronic Opioid Dependence
Continue pain control with standing Tylenol, Oxycodone changed to standing order, PO Dilaudid PRN
added Senokt-S and miralax PRN with opiate use.
Continue topical lidocaine.
PT / OT recc home PT vs SNF
#Mild Hypokalemia, resolved after repletion
home HCTZ on hold
BP stable
#GERD
#IBS
Continue Pepcid
#Anxiety/Depression
Continue current desvenlafaxine. Escitalopram dose reduced to help with QTc.
Hydroxyzine on hold to prevent QTc prolongation
DVT Prophylaxis: SCDs. Lovenox.
GI ppx Pepcid
Code Status: Full
Dispo: PT/OT recc home PT vs SNF. Per CM, Discharge to SNF/rehab once bed found and precert received.
Anticipated Discharge: > 48 hours
Subjective/Interval History
-
Date of Service: November 19, 2024
Patient was seen and examined. She reported continued back pain.
Objective Data
-
Vital Signs:
Vital Signs
Temp Pulse Resp BP Pulse Ox
99.8 F 91 16 108/65 95
11/19/24 01:05 11/18/24 23:36 11/18/24 23:36 11/18/24 23:36 11/18/24 23:36
I&O
11/18/24 11/19/24 11/20/24
06:59 06:59 06:59
Intake Total 720 / 720 1320 / 1320
Balance 720 / 720 1320 / 1320
[2024-11-19 07:39] VITALS: BP 101/69
[2024-11-19] MEDS: CLARITIN 10 MG PO (07:55)
[2024-11-19] MEDS: PRISTIQ 50 MG PO (07:56)
[2024-11-19] MEDS: PEPCID 20 MG PO ×2 (07:56→20:45)
[2024-11-19] MEDS: LIDOCAINE 4% PATCH TOPICAL ×2 (07:56→07:57)
[2024-11-19] MEDS: LEXAPRO 10 MG PO (07:56)
[2024-11-19] MEDS: TYLENOL 1000 MG PO ×3 (07:56→23:51)
--- NOTE | 2024-11-19 10:33 | CM ---
CM spoke with patient regarding [facility]
Faxed [employer] cover sheet & clinical information faxed to [phone]
Will await determination for insurance approval for [facility]
PLAN: SNF, pending insurance approval
--- NOTE | 2024-11-19 12:42 | PN.CDI ---
CDI
- -
CDI:
Physician Documentation Request
Admit Date: 11/16/24 10:12
Dear Doctor Kedar,
Clinical Indicators:
Patient admitted with acute TME.
10/27/24 Outpatient LS Xray, 'Mild L2 superior endplate irregularity, cannot exclude recent fracture.'
11/16 MRI, 'There is an acute to subacute fracture involving the L2 vertebral body.'
11/17 PN, 'New L2 compression fracture'
Please clarify the following:
L2 Compression fracture was present on admission.
L2 Compression was not present on admission
Other, please specify
Use of terms such as suspected, likely, concern for, or probable (associated with a specific diagnosis that is being evaluated, monitored, or treated as if it exists) are acceptable and can be coded in the inpatient setting, when documented at the
time of discharge.
Thank you,
Gabriela Kahn RN BSN
CDI Specialist
available via tiger text
Please use your independent medical judgment in providing your response.
[2024-11-19 16:04] VITALS: BP 133/69
[2024-11-19] MEDS: LOVENOX 40 MG SC (18:03)
[2024-11-19 23:00] VITALS: BP 138/67
[2024-11-20] MEDS: DILAUDID 2 MG PO ×2 (01:29→13:20)
[2024-11-20] MEDS: ZOFRAN 4 MG IV (02:31)
[2024-11-20] MEDS: SYNTHROID 100 MCG PO (06:19)
[2024-11-20] MEDS: ROXICODONE 10 MG PO ×2 (06:19→11:46)
[2024-11-20 06:50] LABS: Blood Urea Nitrogen 11 mg/dl (7-17); Calcium 8.9 mg/dl (8.4-10.2); Carbon Dioxide 23 mmol/L (22-30); Chloride 108 mmol/L (98-107); Estimated Creatinine Clearance 94 ml/min; Glucose 93 mg/dl (70-99); Magnesium 1.9 mg/dl (1.6-2.3); Sodium 139 mmol/L (135-145); eGFR > 60.00
[2024-11-20 07:13] VITALS: BP 109/54
[2024-11-20] MEDS: LIDOCAINE 4% PATCH TOPICAL ×2 (08:16→08:17)
[2024-11-20] MEDS: PRISTIQ 50 MG PO (08:17)
[2024-11-20] MEDS: TYLENOL 1000 MG PO ×2 (08:17→15:17)
[2024-11-20] MEDS: CLARITIN 10 MG PO (08:17)
[2024-11-20] MEDS: LEXAPRO 10 MG PO (08:17)
[2024-11-20] MEDS: PEPCID 20 MG PO (08:17)
--- NOTE | 2024-11-20 08:21 | W.PN.HOSP.TC ---
Today's Communication/Plan
-
Discharge today
Assessment / Plan
Assessment / Plan
Physical Exam
General: Well Developed, Well Nourished, No Apparent Distress, Comfortable and Conversant
HEENT: Normocephalic and Atraumatic
Respiratory: Clear to Auscultation Bilaterally. Non Labored Respirations; Negative Accessory Resp Muscle Use
Neuro: Awake and Alert. Oriented x3. Nonfocal/grossly intact bilaterally.
Psych: Calm and Intact Judgement/Insight
Assessment/Plan
# Hallucinations suspect d/t anticholinergic effect from multiple medications including Scopolamine patch and Hydroxyzine
# Altered Mental Status, Acute TME, resolved
hallucinations/AMS likely 2/2 polypharmacy
Belbuca previously discontinued. Scopolamine patch previously discontinued
Mental status returned to baseline, AOx3
Follow for clinical improvement.
Home oxycodone previously changed back to scheduled, Dilaudid 2 mg (increased on 11/17/24 from 1 mg per patient's request and due to continued significant pain) Q4H PRN for breakthrough pain
lidocaine patch x2 to lower back
Pt c/o persistent severe lower back pain, XR noted Mild compression fracture of the L2 superior endplate
Follow up MRI confirmed acute to subacute L2 vertebral body fracture. Retropulsion the posterior superior margin of the L2 vertebral body, extending into the anterior thecal sac with no compression of the adjacent lower spinal cord/conus. Old
compression fracture of L1 with evidence of previous vertebroplasty.
Dr. Ying discussed vertebroplasty with pt, previously patient stated that she prefers her outpt pain specialist Dr Pancho Valadez to perform the vertebroplasty, now she is open to IR doing it instead if that will expedite the process
Dr. Ying discussed with Dr Pancho Valadez's office [phone]
I discussed with IR on 11/19/24 and they mentioned they would not be able to do any inpatient vertebroplasty this week, so no need for IR consult, and recommendation was made for Dr. Valadez to do outpatient vertebroplasty
#New L2 compression fracture, suspected to be present on admission
-Dr. Ying contacted Dr. Valadez's office
-I discussed on 11/19/[address] Call and they mentioned they would not be able to do any inpatient vertebroplasty this week, so no need for IR consult, and recommendation was made for Dr. Valadez to do outpatient
vertebroplasty
#Cough, Sore Throat, Fatigue on 11/09/24 Secondary to Influenza
#Diarrhea on 11/09/24
Symptoms 2/2 influenza, resolved
s/p tamiflu x5 days
#Incidental finding of endometrium thickening with peripheral irregular enhancement
Findings raise concern for a proliferative process of the endometrium, and endometrial carcinoma is a consideration.
Pelvis/ TV ultrasound -- transvaginal imaging was attempted, however was too painful for the patient due to recent prior pelvic fracture
Spoke on 11/19/24 with on-call staffing and scheduling coordinator who mentioned okay for outpatient follow-up with gynecology (Dr. Kailee Holt) in 6 weeks
#History of Prolonged QTc
Stopped further Atarax
Decreased escitalopram from 20 mg to 10 mg to help with QTc
#Pelvic Fracture from Fall on 10/27
#Chronic Pain Syndrome
#Chronic Opioid Dependence
Continue pain control with standing Tylenol, Oxycodone changed to standing order, PO Dilaudid PRN
added Senokt-S and miralax PRN with opiate use.
Continue topical lidocaine.
PT / OT recc home PT vs SNF
#Mild Hypokalemia, resolved after repletion
home HCTZ on hold
BP stable
#GERD
#IBS
Continue Pepcid
#Anxiety/Depression
Continue current desvenlafaxine. Escitalopram dose reduced to help with QTc.
Hydroxyzine on hold to prevent QTc prolongation
DVT Prophylaxis: SCDs. Lovenox.
GI ppx Pepcid
Code Status: Full
Dispo: SNF
More than 30 minutes spent in discharge including
Final examination of the patient
Summarizing hospital stay
Instructions for continuing care to all relevant caregivers
Preparation of discharge records, prescriptions, and referral forms
Total time spent (in minutes): 37
Anticipated Discharge: Today
Subjective/Interval History
-
Date of Service: November 20, 2024
Patient was seen and examined. She reported pain is still there but okay, denied any new symptoms or complaints this morning.
Objective Data
-
Labs:
Laboratory Results
11/20/24
05:55
Sodium 139
Potassium 4.0
Chloride 108 H
Carbon Dioxide 23
BUN 11
Creatinine 0.6
Glucose 93
Calcium 8.9
Vital Signs:
Vital Signs
Temp Pulse Resp BP Pulse Ox
98.6 F 70 17 109/54 97
11/20/24 07:13 11/20/24 07:13 11/20/24 07:13 11/20/24 07:13 11/20/24 08:00
I&O
11/19/24 11/20/24 11/21/24
06:59 06:59 06:59
Intake Total 1320 / 1320 240 / 240
Balance 1320 / 1320 240 / 240
--- NOTE | 2024-11-20 09:24 | CM ---
Spoke with Gayle Love from [facility]
Ref #:[id number]
States that insurance denied auth for [facility]
Stated to have the medical accounting clerk perform a Peer to Peer - Call [phone] Chou
PLAN: SNF, pending peer to peer review
[2024-11-20] MEDS: MIRALAX 17 GRAMS PO (14:06)
[2024-11-20 15:08] VITALS: BP 111/76
--- NOTE | 2024-11-20 17:53 | CM ---
Addendum entered by Sally Uribe RN 11/20/24 18:15:
Message from Dr Chou this am: Alison Benitez is approved for the SNF per Elida at [facility]. P2P not needed. The Authorization number is [id number] Approved 11/15-11/21/2024. If extension is needed the number to apply for that is
[phone] option # 3.
Auth info given to Juju at [facility].
Original Note:
Patient with Dx hallucinations/AMS likely 2/2 polypharmacy, L2 compression fracture. Room air. PT recommends home PT v skilled rehab. OT recommends skilled rehab.
Spoke with Juju [facility] SNF; they are able to accept the patient today.
[facility] Needs scripts for the Dilaudid, Roxicodone and Lidocaine Patch which need to be faxed over to SNF in advance of her arrival.
Ph for report [phone], fax [phone].
Met with patient who agrees to d/c today to [facility]F by ambulance. IMM completed.
Patient had numerous questions about getting her pain meds at rehab, the SNF and transport- answered all questions and concerns.
Plan [facility] SNF today by ambulance.
== END 2024-11-20 16:46 | DRG 551 ==
LOC: 3 WEST ACU 10:12
PROVIDERS: Internal Medicine; ADMITTING PHYSICIAN Hospitalist; ATTENDING PHYSICIAN Hospitalist; EMERGENCY PHYSICIAN Emergency Medicine; FAMILY PHYSICIAN Nurse Practitioner Family
DX: S32.030A Wedge compression fracture of third lumbar vertebra, initial encounter for closed fracture (principal); G92.8 Other toxic encephalopathy; F11.20 Opioid dependence, uncomplicated; T44.3X5A Adverse effect of other parasympatholytics [anticholinergics and antimuscarinics] and spasmolytics, initial encounter; T45.0X5A Adverse effect of antiallergic and antiemetic drugs, initial encounter; G89.4 Chronic pain syndrome; K21.9 Gastro-esophageal reflux disease without esophagitis; K58.2 Mixed irritable bowel syndrome; F32.A Depression, unspecified; F41.9 Anxiety disorder, unspecified; J10.1 Influenza due to other identified influenza virus with other respiratory manifestations; E87.6 Hypokalemia; Z88.0 Allergy status to penicillin; Z88.6 Allergy status to analgesic agent; E03.9 Hypothyroidism, unspecified; F43.10 Post-traumatic stress disorder, unspecified; I10 Essential (primary) hypertension; J45.909 Unspecified asthma, uncomplicated; Z79.890 Hormone replacement therapy; Z96.619 Presence of unspecified artificial shoulder joint; Z96.653 Presence of artificial knee joint, bilateral; Z98.1 Arthrodesis status; Z11.52 Encounter for screening for COVID-19; S32.9XXD Fracture of unspecified parts of lumbosacral spine and pelvis, subsequent encounter for fracture with routine healing
CPT/HCPCS: 70450; 72100; 72158; 72220; 76830; 76856; 80048; 80053; 80076; 80306; 80307; 81003; 81015; 83735; 84100; 84439; 84443; 85025; 85027; 87045; 87046; 87070; 87086; 87324; 87427; 87449; 87502; 87811; 93005; 96374; 97116; 97163; 97166; 97530; 97535; 99285; A9575

== ENCOUNTER → 2025-01-29 15:24 | Outpatient (REF) | payer BC, SELFPAY | LOC: RAD 15:24 | PROVIDERS: ATTENDING PHYSICIAN Physician Assistant Surgical; FAMILY PHYSICIAN Nurse Practitioner Adult Health | DX: M25.511 Pain in right shoulder (principal) | CPT/HCPCS: 73200 ==

== ENCOUNTER → 2025-03-22 14:36 | Outpatient (REF) | payer BC, SELFPAY ==
[2025-03-22 15:31] LABS: Hematocrit 43.0 % (37.0-47.0); Hemoglobin 14.0 g/dL (12.0-16.0); Mean Corp Hgb Conc. 32.6 g/dL (33.0-37.0); Mean Corpuscular Volume 85.7 fL (81.0-99.0); Nucleated Red Blood Cells % 0 %; Platelet Count 265 10^3/uL (130-400); Red Cell Dist. Width 12.2 % (11.5-14.5)
[2025-03-22 15:49] LABS: Blood Urea Nitrogen 23 mg/dl (7-17); Calcium 9.5 mg/dl (8.4-10.2); Carbon Dioxide 28 mmol/L (22-30); Chloride 105 mmol/L (98-107); Glucose 91 mg/dl (70-99); Potassium 4.6 mmol/L (3.5-5.1); Sodium 138 mmol/L (135-145); eGFR > 60.00
== END ==
LOC: REG 14:36
PROVIDERS: ATTENDING PHYSICIAN Orthopaedic Surgery Hand Surgery; FAMILY PHYSICIAN Internal Medicine
DX: Z01.818 Encounter for other preprocedural examination (principal)
CPT/HCPCS: 36415; 80048; 85025; 93005

== ENCOUNTER → 2025-05-08 13:19 | Outpatient (REF) | payer BC, SELFPAY | LOC: MRI 3T 13:19 | PROVIDERS: ATTENDING PHYSICIAN Obstetrics & Gynecology Gynecology; FAMILY PHYSICIAN Nurse Practitioner Adult Health | DX: R93.89 Abnormal findings on diagnostic imaging of other specified body structures (principal); R10.2 Pelvic and perineal pain | CPT/HCPCS: 72197; A9575 ==

== ENCOUNTER 2025-06-21 06:07 | Day surgery (SDC) | payer BC, SELFPAY ==
[2025-06-21] VITALS (9 sets, daily range): BP systolic 94–147; BP diastolic 45–79; BMI 27.5
[2025-06-21] MEDS: NORMOSOL-R/PLASMALYTE-A 1000 IV (07:20)
[2025-06-21] MEDS: EMEND 40 MG PO (07:20)
[2025-06-21] MEDS: VIBRAMYCIN 260 MG IV (07:21)
[2025-06-21] MEDS: DILAUDID 0.5 MG IV (08:58)
[2025-06-21] MEDS: TYLENOL 650 MG PO (09:44)
== END 2025-06-21 10:15 | disposition home or self-care (01) ==
LOC: SDS 06:07
PROVIDERS: ATTENDING PHYSICIAN Obstetrics & Gynecology Gynecology
DX: N84.0 Polyp of corpus uteri (principal); R93.89 Abnormal findings on diagnostic imaging of other specified body structures; D26.0 Other benign neoplasm of cervix uteri
CPT/HCPCS: 58558; 88305

== ENCOUNTER → 2025-08-28 16:11 | Outpatient (REF) | payer BC, SELFPAY | LOC: PAVMRI 16:11 | PROVIDERS: ATTENDING PHYSICIAN Psychiatry & Neurology Neurology; FAMILY PHYSICIAN Nurse Practitioner Adult Health | DX: M54.16 Radiculopathy, lumbar region (principal); M54.14 Radiculopathy, thoracic region | CPT/HCPCS: 72146; 72148 ==